=== PATIENT | male | born 1950 ===

== ENCOUNTER 2017-08-08 21:36 | Inpatient (IN) | payer MEDICARE, OTHER ==
--- NOTE | 2017-08-08 22:17 | ED PDOC ---
HPI: Chest Pain Time Seen by Provider: 08/08/17 21:59 Chief Complaint (Nursing): Chest Pain History Per: Patient Onset/Duration Of Symptoms: Days (2) Current Symptoms Are (Timing): Intermittent Episodes Severity: Moderate Pain Scale Rating Of: 3 Quality: Pressure Associated Symptoms: denies: Nausea, Dyspnea Additional Complaint(s): Substernal chest pressure, feels like someone is sitting on his chest. Not assoc with SOB. Nonradiating. 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 Has been tx'ed x 2weeks. No fever or cough Past Medical History Vital Signs: Last Vital Signs Temp 98.9 F 08/08/17 21:52 Pulse 79 08/08/17 21:52 Resp 18 08/08/17 21:52 BP 115/66 08/08/17 21:52 Pulse Ox 98 08/08/17 22:18 - Medical History PMH: CAD, Diabetes, HTN - Family History Family History: States: Unknown Family Hx - Allergies Allergies/Adverse Reactions: Allergies Allergy/AdvReac Type Severity Reaction Status Date / Time No Known Allergies Allergy Verified 08/08/17 21:52 Review of Systems ROS Statement: Except As Marked, All Systems Reviewed And Found Negative Cardiovascular: Positive for: Chest Pain Physical Exam - Reviewed Nursing Documentation Reviewed: Yes Vital Signs Reviewed: Yes - Physical Exam Appears: Positive for: Non-toxic, No Acute Distress Head Exam: Positive for: ATRAUMATIC, NORMAL INSPECTION, NORMOCEPHALIC Skin: Positive for: Normal Color, Warm, DRY Eye Exam: Positive for: EOMI, Normal appearance, PERRL ENT: Positive for: Normal ENT Inspection Neck: Positive for: Normal, Painless ROM Cardiovascular/Chest: Positive for: Regular Rate, Rhythm Respiratory: Positive for: CNT, Normal Breath Sounds Gastrointestinal/Abdominal: Positive for: Normal Exam, Bowel Sounds, Soft Back: Positive for: Normal Inspection Extremity: Positive for: Normal ROM Neurologic/Psych: Positive for: Alert, Oriented - Laboratory Results Result Diagrams: 08/08/17 22:40 08/08/17 22:40 - ECG O2 Sat by Pulse Oximetry: 98 Disposition - Clinical Impression Clinical Impression: Chest pain - Patient ED Disposition Is Patient to be Admitted: Yes - Disposition Disposition Time: 23:26 Condition: FAIR Forms: [employer] (Polish) - Pt Status Changed To: Hospital Disposition Of: Observation - POA Present On Arrival: None
[2017-08-08 22:56] LABS: BASO # 0.1 K/uL (0.0-0.2); BASO % 1.1 % (0.0-2.0); EOS # 0.1 K/uL (0.0-0.7); EOS % 0.9 % (0.0-4.0); HEMOGLOBIN 9.6 g/dL (12.0-18.0); LYMPH # 1.1 K/uL (1.0-4.3); LYMPH % 12.3 % (20.0-40.0); MEAN CELL VOLUME 79.9 fl (80.0-94.0); MEAN CORPUSCULAR HGB CONC 31.3 g/dL (33.0-37.0); MEAN PLATELET VOLUME 7.8 fl (7.2-11.7); MONO # 0.5 K/uL (0.0-0.8); NEUT # 6.8 K/uL (1.8-7.0); NEUT % 79.7 % (50.0-75.0); RBC 3.82 Mil/uL (4.40-5.90); RED CELL DISTRIBUTION WIDTH 17.8 % (11.5-14.5); WHITE BLOOD COUNT 8.5 K/uL (4.8-10.8)
[2017-08-08 23:07] LABS: ALBUMIN 3.7 g/dL (3.5-5.0); ALT/SGPT 50 U/L (21-72); AST/SGOT 34 U/L (17-59); BLOOD UREA NITROGEN 19 mg/dl (9-20); CALCIUM 9.6 mg/dL (8.4-10.2); GFR AFRICAN-AMERICAN > 60; GFR NON-AFRICAN AMERICAN > 60
[2017-08-09] MEDS ORDERED: Pantoprazole 40 mg EC Tab PO SCH ×2 (02:15→09:00)
[2017-08-09] MEDS ORDERED: Pneumococcal 23-Valent Vaccine IM ONE (06:00)
[2017-08-09] MEDS ORDERED: INSULIN ASPART 10 UNIT SQ SCH (09:00)
[2017-08-09] MEDS ORDERED: Cholecalciferol 1,000 INTLU TAB PO SCH (09:00)
[2017-08-09] MEDS ORDERED: Patient's Own Med (Atorvastatin Calcium [Lipitor] 80 mg) PO SCH (09:00)
[2017-08-09] MEDS ORDERED: Enoxaparin 120 mg Syringe SC SCH (09:00)
[2017-08-09] MEDS ORDERED: POLYETHYLENE GLYCOL PO SCH (09:00)
--- NOTE | 2017-08-09 09:04 | RAD ---
HISTORY: chest pain COMPARISON: No prior. TECHNIQUE: Chest PA and lateral FINDINGS: LUNGS: No active pulmonary disease. PLEURA: No significant pleural effusion identified. No pneumothorax apparent. CARDIOVASCULAR: Normal. OSSEOUS STRUCTURES: Degenerative changes. VISUALIZED UPPER ABDOMEN: Normal. OTHER FINDINGS: Left upper extremity PICC with catheter tip in the SVC. IMPRESSION: No active disease.
[2017-08-09] MEDS: Insulin Detemir 100 Units/ml Inj SC SCH (10:19)
[2017-08-09] MEDS: POLYETHYLENE GLYCOL 3350 17 GM/Dose PACKET PO SCH (11:00)
[2017-08-09] MEDS: Pantoprazole 40 mg EC Tab PO SCH (11:01)
[2017-08-09] MEDS: Cholecalciferol 1,000 INTLU TAB PO SCH (11:01)
[2017-08-09] MEDS: Ciprofloxacin 0.3% OPTH SOLN OU SCH ×2 (11:01→15:51)
--- NOTE | 2017-08-09 11:15 | CARD ---
APPROVED REPORT EKG Measurement Heart [id number] <Conclusion> Normal sinus rhythm Normal ECG
[2017-08-09] MEDS: Insulin Lispro (humaLOG) 100 Units/ml Inj SC SCH (15:41)
[2017-08-09] MEDS: Nasal Spray(Ocean spray) NAS PRN (15:43)
[2017-08-09] MEDS: Ciprofloxacin/Dexamethasone OTIC SUSP AD SCH ×2 (18:12→18:16)
[2017-08-09] MEDS: Enoxaparin 80 mg Syringe SC SCH (20:34)
[2017-08-09] MEDS: Cefepime 1 GM in Sodium Chloride 0.9% 100 ML IVPB SCH (21:12)
--- NOTE | 2017-08-09 23:41 | CON ---
CARDIOLOGY CONSULTATION DATE: HISTORY OF PRESENT ILLNESS: History was obtained from the patient as well as the patient's brother on the phone. The patient is a 66-year-old male who arrived from [facility] few weeks ago. He stated that he had chest pain and cardiac catheterization was told, he needs an open surgery. The patient was evaluated at [facility] in [facility] for heart surgery; however, because of an ear and possibly right mastoid infection, the surgery was postponed. The patient had PICC line and was started on intravenous antibiotic therapy. Unexpectedly according to the patient's brother the patient was discharged Thursday from the [facility] and he presented to [facility] because of chest pain. SOCIAL HISTORY: Nonsmoker. MEDICATIONS: Aspirin 81 mg once a day, Imdur 60 mg once a day, Levemir 60 mg once a day, Lipitor 80 mg once a day, Lovenox 120 mg subcutaneously twice a day, Neurontin 600 mg twice a day, Protonix 40 mg once a day and atenolol 25 mg once a day. REVIEW OF SYSTEMS: The patient has severe right ear ache and right facial drooping and difficulty articulating his speech. PHYSICAL EXAMINATION GENERAL: The patient is an elderly male who does not appear to be in acute distress. VITAL SIGNS: Blood pressure , heart rate is 77, temperature 98.5 and respirations 18. HEENT: Right facial drooping and inability to close right eye completely. NECK: No JVD. CHEST: Clear. HEART: S1 and S2 regular. EXTREMITIES: 1+ left leg edema. LABORATORY DATA: Hemoglobin and hematocrit 9.6 and 30.6, white count and platelet count are within normal limits. SMA-7 today is within normal limits except for glucose 181. Two sets of troponins are negative. EKG revealed normal sinus rhythm. Chest x-ray is unremarkable except for prominent vasculature and presence of the left arm PICC line. ASSESSMENT: 1. Chest pain, myocardial infarction is ruled out. 2. Reported coronary artery disease requiring coronary artery bypass surgery as the recommendation, but has not been performed yet. 3. Rule out mastoid infection extending into the sigmoid or sagittal sinuses. 4. Hypertension, diabetes mellitus. RECOMMENDATIONS: Continue current aspirin 81 mg once a day, Lipitor at 80 mg once a day, subcutaneous Lovenox at 120 mg twice a day, obtain head CT scan without contrast. Consider resuming the IV antibiotic therapy. The patient was discharged upon for his mastoiditis. I discussed the case with the patient's brother regarding open heart surgery. Arrangements has to be made to transfer the patient back to the [facility], but not until the mastoid infection is controlled. In the meantime, I will discuss the case with the primary physician. It is preferred that the patient has entire medical managements for his medical problems with the original [facility] in [facility] to avoid unnecessary repetitions of workup and evaluations. Benjamin Patton MD
[2017-08-10] MEDS: Ciprofloxacin/Dexamethasone OTIC SUSP AD SCH ×2 (11:28→18:18)
[2017-08-10] MEDS: Enoxaparin 80 mg Syringe SC SCH ×2 (11:30→21:28)
[2017-08-10] MEDS: Cholecalciferol 1,000 INTLU TAB PO SCH (11:31)
[2017-08-10] MEDS: Pantoprazole 40 mg EC Tab PO SCH (11:32)
[2017-08-10] MEDS: Insulin Lispro (humaLOG) 100 Units/ml Inj SC SCH (11:33)
[2017-08-10] MEDS: Insulin Detemir 100 Units/ml Inj SC SCH (11:34)
[2017-08-10] MEDS: Cefepime 1 GM in Sodium Chloride 0.9% 100 ML IVPB SCH (11:35)
[2017-08-10] MEDS: POLYETHYLENE GLYCOL 3350 17 GM/Dose PACKET PO SCH (11:35)
--- NOTE | 2017-08-10 14:24 | PN ---
DATE: This is a correction to some of them to yesterday's note. SUBJECTIVE: The patient was never been to the hospital in [facility]. The cardiac cath was performed in [facility], and the patient was told that he has to go to [facility] for the coronary artery bypass surgery and the IV antibiotics and the PICC lines for mastoiditis were initiated in [facility]. The patient denies any chest pain. PHYSICAL EXAMINATION: VITAL SIGNS: Blood pressure 110/64, heart rate 70, temperature 98.4, respirations 18. HEENT: Right facial drooping. NECK: No JVD. CHEST: Clear. HEART: S1 and S2 regular. EXTREMITIES: Trace leg edema. ASSESSMENT: 1. Chest pain, myocardial infarction is ruled out. 2. History of coronary artery disease requiring coronary artery bypass surgery. 3. Rule out mastoiditis and possible intracranial infection or sinus thrombosis. 4. Uncontrolled diabetes mellitus. RECOMMENDATIONS: Case was discussed at length with the primary physician, Dr. Reveles and with RATE REVIEWER. The patient was started on cefepime today. I requested that his records including his intravenous antibiotics at the time of discharge to be obtained from [facility]. Head CT scan with and without contrast was ordered yesterday, but has not been performed yet. Echocardiography study is still pending. The patient is not a suitable candidate for any invasive cardiac workup or coronary artery bypass surgery at this time because of his ongoing mastoiditis. Benjamin Patton MD
[2017-08-11] MEDS: Enoxaparin 80 mg Syringe SC SCH ×2 (09:19→20:22)
[2017-08-11] MEDS: Ciprofloxacin/Dexamethasone OTIC SUSP AD SCH ×2 (09:19→17:19)
[2017-08-11] MEDS: Cholecalciferol 1,000 INTLU TAB PO SCH (09:20)
[2017-08-11] MEDS: Insulin Lispro (humaLOG) 100 Units/ml Inj SC SCH (09:21)
[2017-08-11] MEDS: Pantoprazole 40 mg EC Tab PO SCH (09:21)
[2017-08-11] MEDS: Insulin Detemir 100 Units/ml Inj SC SCH (09:22)
[2017-08-11] MEDS: Cefepime 1 GM in Sodium Chloride 0.9% 100 ML IVPB SCH (09:23)
[2017-08-11] MEDS: POLYETHYLENE GLYCOL 3350 17 GM/Dose PACKET PO SCH (09:23)
--- NOTE | 2017-08-11 11:34 | CP.PCM.HP ---
History of Present Illness - History of Present Illness History of Present Illness: This is a 66 y/o male admitted form last night for chest pain He has a dx of CAD and scheduled for further cardiac testing but the sudden onset of chest pain brought him to ER last night. Has a hx of HTN and DM 2. He is currently on treatment for osteomyelitis of the mastoid bone. Present on Admission - Present on Admission Any Indicators Present on Admission: No History of DVT/PE: No History of Uncontrolled Diabetes: Yes Urinary Catheter: No Decubitus Ulcer Present: No Review of Systems - EENT Nose/Mouth/Throat: Sinus Pain Past Patient History - Past Medical History & Family History Past Medical History?: Yes - Past Social History Smoking Status: Former Smoker - CARDIAC Hx Hypertension: Yes - ENDOCRINE/METABOLIC Hx Diabetes Mellitus Type 2: Yes - MUSCULOSKELETAL/RHEUMATOLOGICAL Hx Falls: Yes Hx Osteomyelitis: Yes (skull base) - PSYCHIATRIC Hx Substance Use: No Meds Allergies/Adverse Reactions: Allergies Allergy/AdvReac Type Severity Reaction Status Date / Time No Known Allergies Allergy Verified 08/08/17 21:52 Physical Exam - Head Exam Head Exam: NORMAL INSPECTION - Eye Exam Eye Exam: Normal appearance - ENT Exam ENT Exam: Mucous Membranes Moist - Respiratory Exam Respiratory Exam: Clear to Auscultation Bilateral - Cardiovascular Exam Cardiovascular Exam: REGULAR RHYTHM - Extremities Exam Extremities exam: Positive for: normal inspection - Neurological Exam Neurological exam: CN II-XII Intact, Oriented x3 - Psychiatric Exam Psychiatric exam: Normal Mood Results - Vital Signs Recent Vital Signs: Last Vital Signs Temp 98.5 F 08/11/17 08:00 Pulse 73 08/11/17 09:21 Resp 18 08/11/17 08:00 BP 118/61 08/11/17 09:21 Pulse Ox 100 08/11/17 08:00 - Labs Result Diagrams: 08/12/17 18:06 08/12/17 18:06 Labs: Laboratory Results - last 24 hr 08/10/17 08/10/17 08/11/17 17:01 21:44 05:33 POC Glucose (mg/dL) 89 257 H 141 H Assessment & Plan (1) Chest pain Status: Acute (2) Mastoiditis Status: Acute (3) Diabetes mellitus Status: Chronic (4) Hypertension Status: Acute - Assessment and Plan (Free Text) Plan: Cont iv antibiotics Cardiology eval CT scan of the head cardiac work up
--- NOTE | 2017-08-11 11:35 | CP.PCM.PN ---
Subjective - Date & Time of Evaluation Date of Evaluation: 08/10/17 Time of Evaluation: 10:00 - Subjective Subjective: Patient denies any chest pain or SOB All troponins x 3 are all negative. Has no fever. Patient claims that he was diagnosed to have DVT hence on Lovenox. Objective - Vital Signs/Intake and Output Vital Signs (last 24 hours): Temp Pulse Resp BP Pulse Ox 98.5 F 73 18 118/61 100 08/11/17 08:00 08/11/17 09:21 08/11/17 08:00 08/11/17 09:21 08/11/17 08:00 - Medications Medications: Current Medications Acetaminophen (Tylenol 325mg Tab) 650 mg PO QID PRN PRN Reason: Pain, moderate (4-7) Aspirin (Aspirin Chewable) 81 mg PO DAILY [facility] Last Admin: 08/11/17 09:20 Dose: 81 mg Atenolol (Tenormin) 25 mg PO DAILY [facility] Last Admin: 08/11/17 09:21 Dose: 25 mg Atorvastatin Calcium (Lipitor) 80 mg PO DAILY [facility] Last Admin: 08/11/17 09:21 Dose: 80 mg Cholecalciferol (Vitamin D) 2,000 intlu PO DAILY [facility] Last Admin: 08/11/17 09:20 Dose: 2,000 intlu Ciprofloxacin/Dexamethasone (Ciprodex Otic) 4 drop AD BID [facility] Last Admin: 08/11/17 09:19 Dose: 4 drop Docusate Sodium (Colace) 100 mg PO BID [facility] Last Admin: 08/11/17 09:20 Dose: 100 mg Enoxaparin Sodium (Lovenox) 70 mg SC Q12 [facility] PRN Reason: Protocol Last Admin: 08/11/17 09:19 Dose: 70 mg Gabapentin (Neurontin) 600 mg PO BID [facility] Last Admin: 08/11/17 09:20 Dose: 600 mg Cefepime HCl 1 gm/ Sodium (Chloride) 100 mls @ 100 mls/hr IVPB DAILY [facility] PRN Reason: Protocol Last Admin: 08/11/17 09:23 Dose: 100 mls/hr Insulin Detemir (Levemir) 50 units SC DAILY [facility] Last Admin: 08/11/17 09:22 Dose: 50 unit Insulin Human Lispro (Humalog) 10 units SC DAILY [facility] Last Admin: 08/11/17 09:21 Dose: 10 units Isosorbide Mononitrate (Imdur) 60 mg PO DAILY [facility] Last Admin: 08/11/17 09:21 Dose: 60 mg Metformin HCl (Glucophage) 850 mg PO BIDWM [facility] Pantoprazole Sodium (Protonix Ec Tab) 40 mg PO DAILY [facility] Last Admin: 08/11/17 09:21 Dose: 40 mg Polyethylene Glycol (Miralax) 17 gm PO DAILY [facility] Last Admin: 08/11/17 09:23 Dose: Not Given Sitagliptin Phosphate (Januvia) 100 mg PO DAILY [facility] Sodium Chloride ([place] Nasal [place]) 1 sprays SARAH TID PRN PRN Reason: Dry nasal passages Last Admin: 08/09/17 15:43 Dose: 1 spray Tramadol HCl (Ultram) 50 mg PO Q8 PRN PRN Reason: Pain, moderate (4-7) - Labs Labs: 08/08/17 22:40 08/08/17 22:40 - Head Exam Head Exam: NORMAL INSPECTION - Eye Exam Eye Exam: Normal appearance - ENT Exam ENT Exam: Mucous Membranes Moist - Respiratory Exam Respiratory Exam: Clear to Ausculation Bilateral - Cardiovascular Exam Cardiovascular Exam: REGULAR RHYTHM - GI/Abdominal Exam GI & Abdominal Exam: Normal Bowel Sounds - Neurological Exam Neurological Exam: CN II-XII Intact, Oriented x3 - Psychiatric Exam Psychiatric exam: Anxious Assessment and Plan (1) Chest pain Status: Acute (2) Hypertension Status: Acute (3) Mastoiditis Status: Acute (4) Diabetes mellitus Status: Chronic - Assessment and Plan (Free Text) Plan: Cont meds Cont IV antibiotics follow up with cardiology
--- NOTE | 2017-08-11 11:50 | CP.PCM.PN ---
<Elvira Vasquez - Last Filed: 08/11/17 12:21> Subjective - Date & Time of Evaluation Date of Evaluation: 08/11/17 Time of Evaluation: 11:47 - Subjective Subjective: Patient is seen and examined at bedside, denies any chest pain today. Is scheduled for a head CT today. Troponin x 3 have been negative. Denies SOB/N/V/D Objective - Vital Signs/Intake and Output Vital Signs (last 24 hours): Temp Pulse Resp BP Pulse Ox 98.5 F 73 18 118/61 100 08/11/17 08:00 08/11/17 09:21 08/11/17 08:00 08/11/17 09:21 08/11/17 08:00 - Medications Medications: Current Medications Acetaminophen (Tylenol 325mg Tab) 650 mg PO QID PRN PRN Reason: Pain, moderate (4-7) Aspirin (Aspirin Chewable) 81 mg PO DAILY [facility] Last Admin: 08/11/17 09:20 Dose: 81 mg Atenolol (Tenormin) 25 mg PO DAILY [facility] Last Admin: 08/11/17 09:21 Dose: 25 mg Atorvastatin Calcium (Lipitor) 80 mg PO DAILY [facility] Last Admin: 08/11/17 09:21 Dose: 80 mg Cholecalciferol (Vitamin D) 2,000 intlu PO DAILY [facility] Last Admin: 08/11/17 09:20 Dose: 2,000 intlu Ciprofloxacin/Dexamethasone (Ciprodex Otic) 4 drop AD BID [facility] Last Admin: 08/11/17 09:19 Dose: 4 drop Docusate Sodium (Colace) 100 mg PO BID [facility] Last Admin: 08/11/17 09:20 Dose: 100 mg Enoxaparin Sodium (Lovenox) 70 mg SC Q12 [facility] PRN Reason: Protocol Last Admin: 08/11/17 09:19 Dose: 70 mg Gabapentin (Neurontin) 600 mg PO BID [facility] Last Admin: 08/11/17 09:20 Dose: 600 mg Cefepime HCl 1 gm/ Sodium (Chloride) 100 mls @ 100 mls/hr IVPB DAILY [facility] PRN Reason: Protocol Last Admin: 08/11/17 09:23 Dose: 100 mls/hr Insulin Detemir (Levemir) 50 units SC DAILY [facility] Last Admin: 08/11/17 09:22 Dose: 50 unit Insulin Human Lispro (Humalog) 10 units SC DAILY [facility] Last Admin: 08/11/17 09:21 Dose: 10 units Isosorbide Mononitrate (Imdur) 60 mg PO DAILY [facility] Last Admin: 08/11/17 09:21 Dose: 60 mg Metformin HCl (Glucophage) 850 mg PO BIDWM [facility] Pantoprazole Sodium (Protonix Ec Tab) 40 mg PO DAILY [facility] Last Admin: 08/11/17 09:21 Dose: 40 mg Polyethylene Glycol (Miralax) 17 gm PO DAILY [facility] Last Admin: 08/11/17 09:23 Dose: Not Given Sitagliptin Phosphate (Januvia) 100 mg PO DAILY [facility] Sodium Chloride ([place] Nasal [place]) 1 sprays SARAH TID PRN PRN Reason: Dry nasal passages Last Admin: 08/09/17 15:43 Dose: 1 spray Tramadol HCl (Ultram) 50 mg PO Q8 PRN PRN Reason: Pain, moderate (4-7) - Labs Labs: 08/08/17 22:40 08/08/17 22:40 - Constitutional Appears: Non-toxic, No Acute Distress - Head Exam Head Exam: NORMAL INSPECTION Additional comments: right facial droop - Eye Exam Eye Exam: Normal appearance - Respiratory Exam Respiratory Exam: Clear to Ausculation Bilateral. absent: Rhonchi, Wheezes - Cardiovascular Exam Cardiovascular Exam: REGULAR RHYTHM, +S1, +S2 - GI/Abdominal Exam GI & Abdominal Exam: Soft, Tenderness, Normal Bowel Sounds - Extremities Exam Extremities Exam: Normal Inspection - Neurological Exam Neurological Exam: Alert, Awake Assessment and Plan (1) Mastoiditis Status: Acute (2) Chest pain Assessment & Plan: Toponin x 3 negative. Cardio consult appreciated F/U with Echo Pt not currently a candidate for invasive intervention. F/U with cardio outpatient. Once Status: Acute (3) Diabetes mellitus Assessment & Plan: Diabetes Mellitus type II - C/W home insulin regimine. Will add metformin and Junuvia today Status: Chronic (4) DVT prophylaxis Status: Acute <Ellis Abreu - Last Filed: 08/12/17 23:21> Objective - Vital Signs/Intake and Output Vital Signs (last 24 hours): Temp Pulse Resp BP Pulse Ox 99.6 F 86 17 110/60 99 08/12/17 19:57 08/12/17 19:57 08/12/17 19:57 08/12/17 19:57 08/12/17 19:57 - Medications Medications: Current Medications Acetaminophen (Tylenol 325mg Tab) 650 mg PO QID PRN PRN Reason: Pain, moderate (4-7) Acetaminophen (Tylenol 325mg Tab) 650 mg PO Q4 PRN PRN Reason: Fever >100.4 F Last Admin: 08/12/17 12:12 Dose: 650 mg Al Hydrox/Mg Hydrox/Simethicone (Maalox Plus 30 Ml) 30 ml PO Q4 PRN PRN Reason: Indigestion / Heartburn Last Admin: 08/12/17 17:06 Dose: 30 ml Albuterol (Ventolin Hfa 90 Mcg/Actuation (8 G)) 1 puff INH RQ4 PRN PRN Reason: Shortness of Breath Aspirin (Aspirin Chewable) 81 mg PO DAILY [facility] Last Admin: 08/12/17 09:39 Dose: 81 mg Atenolol (Tenormin) 25 mg PO DAILY [facility] Last Admin: 08/12/17 09:38 Dose: 25 mg Atorvastatin Calcium (Lipitor) 80 mg PO DAILY [facility] Last Admin: 08/12/17 09:35 Dose: 80 mg Benzocaine/Menthol (Cepacol Sore Throat) 1 nick PO Q2 PRN PRN Reason: Sore Throat Last Admin: 08/12/17 03:20 Dose: 1 nick Cholecalciferol (Vitamin D) 2,000 intlu PO DAILY [facility] Last Admin: 08/12/17 09:38 Dose: 2,000 intlu Ciprofloxacin/Dexamethasone (Ciprodex Otic) 4 drop AD BID [facility] Last Admin: 08/12/17 17:09 Dose: 4 drop Docusate Sodium (Colace) 100 mg PO BID [facility] Last Admin: 08/12/17 17:09 Dose: 100 mg Enoxaparin Sodium (Lovenox) 70 mg SC Q12 [facility] PRN Reason: Protocol Last Admin: 08/12/17 21:37 Dose: 70 mg Gabapentin (Neurontin) 600 mg PO BID [facility] Last Admin: 08/12/17 17:07 Dose: 600 mg Cefepime HCl 2 gm/ Sodium (Chloride) 100 mls @ 100 mls/hr IVPB Q8 [facility] PRN Reason: Protocol Last Admin: 08/12/17 17:07 Dose: 100 mls/hr Sodium Chloride (Sodium Chloride 0.9%) 1,000 mls @ 999 mls/hr IV .Q1H1M [facility] Stop: 08/13/17 17:45 Last Admin: 08/12/17 17:59 Dose: 999 mls/hr Insulin Detemir (Levemir) 50 units SC DAILY [facility] Last Admin: 08/12/17 09:37 Dose: 50 unit Insulin Human Lispro (Humalog) 10 units SC DAILY [facility] Last Admin: 08/12/17 11:59 Dose: 10 units Isosorbide Mononitrate (Imdur) 60 mg PO DAILY [facility] Last Admin: 08/12/17 09:38 Dose: 60 mg Metformin HCl (Glucophage) 850 mg PO BIDWM [facility] Last Admin: 08/12/17 17:09 Dose: Not Given Pantoprazole Sodium (Protonix Ec Tab) 40 mg PO DAILY [facility] Last Admin: 08/12/17 09:37 Dose: 40 mg Polyethylene Glycol (Miralax) 17 gm PO DAILY [facility] Last Admin: 08/12/17 09:37 Dose: Not Given Sitagliptin Phosphate (Januvia) 100 mg PO DAILY [facility] Last Admin: 08/12/17 09:40 Dose: 100 mg Sodium Chloride ([place] Nasal [place]) 1 sprays SARAH TID PRN PRN Reason: Dry nasal passages Last Admin: 08/09/17 15:43 Dose: 1 spray Tramadol HCl (Ultram) 50 mg PO Q8 PRN PRN Reason: Pain, moderate (4-7) Last Admin: 08/11/17 19:35 Dose: 50 mg - Labs Labs: 08/12/17 18:06 08/12/17 18:06 Assessment and Plan (1) Chest pain Status: Acute (2) Hypertension Status: Acute (3) Mastoiditis Status: Acute (4) Diabetes mellitus Status: Chronic - Assessment and Plan (Free Text) Plan: I was present during evaluation and discussed with Dr Vasquez re plans of care and mgt. Ellis Abreu M.D.
[2017-08-11 12:06] LABS: BLOOD UREA NITROGEN 12 mg/dl (9-20); CALCIUM 9.2 mg/dL (8.4-10.2); GFR AFRICAN-AMERICAN > 60; GFR NON-AFRICAN AMERICAN > 60
[2017-08-11 12:14] LABS: HEMOGLOBIN 9.4 g/dL (12.0-18.0); MEAN CELL VOLUME 79.7 fl (80.0-94.0); MEAN CORPUSCULAR HEMOGLOBIN 25.3 pg (27.0-31.0); MEAN CORPUSCULAR HGB CONC 31.7 g/dL (33.0-37.0); RBC 3.7 Mil/uL (4.40-5.90); RED CELL DISTRIBUTION WIDTH 18.5 % (11.5-14.5); WHITE BLOOD COUNT 7.9 K/uL (4.8-10.8)
[2017-08-11] MEDS ORDERED: Iohexol 300 50 ML ONE ×3 (12:37)
[2017-08-11] MEDS ORDERED: Sodium Chloride 0.9% 50 ML IV ONE (12:40)
[2017-08-11] MEDS ORDERED: Iohexol 300 100 ML IJ ONE (12:40)
--- NOTE | 2017-08-11 14:10 | PQF GENQUE ---
This form is a permanent part of the medical record 08/11/17 Dr. Abreu / Pooja, Please clarify the etiology of the chest pain in a patient with documented CAD. Admitted with chest pain. Reported to have CAD. EKG: NSR. Troponin x 3 negative. ECHO pending results. Treated with Aspirin, Tenormin, Lovenox. Clarification of your documentation is requested to better reflect the severity of illness and intensity of treatment of your patient. Indicators present [] Specify: [] [] Specify: [] [] Specify: [] [] Specify: [] Location in the medical record that reflects the above clinical findings: [] Treatment Provided: [] PHYSICIAN'S RESPONSE Based on your medical judgment of the clinical indicators outlined above please clarify the following: [] Practitioner response [] If unable to determine, please check the box, sign and date. Present On Admission (POA) Indicator: [] Present at the time of admission [] Not present at the time of admission [] Clinically Undetermined In responding to this query, please exercise your independent professional judgment. The fact that a question is asked does not imply that any particular answer is desired or expected. Thank you for your clarification on this documentation. If you have any questions please call:ext [phone] * Thank you, Vandana Gómez RN CDMP [facility]
--- NOTE | 2017-08-11 14:19 | CT ---
PROCEDURE: CT HEAD WITH AND WITHOUT CONTRAST HISTORY: ?Mastoiditis,Sigmoid or Sagittal sinus thrombosis COMPARISON: None available. TECHNIQUE: Axial computed tomography images were obtained through the head/brain with and without intravenous contrast enhancement. Coronal and sagittal reconstructed postcontrast CT images were also obtained. Contrast dose: 95 cc of Omnipaque 300. Radiation dose: Total exam DLP = 1956.05 mGy-cm. This CT exam was performed using one or more of the following dose reduction techniques: Automated exposure control, adjustment of the mA and/or kV according to patient size, and/or use of iterative reconstruction technique. FINDINGS: HEMORRHAGE: No intracranial hemorrhage. BRAIN: No mass, mass effect or edema. No abnormal intracranial enhancement. No atrophy or chronic microvascular ischemic changes. VENTRICLES: Unremarkable. No hydrocephalus. CALVARIUM: Unremarkable. SINUSES: Mild mucosal thickening noted in the paranasal sinuses without evidence of air-fluid level. MASTOID AIR CELLS: There is complete opacification of the right mastoid and right middle ear suggestive of otomastoiditis. The left mastoid is grossly unremarkable. OTHER FINDINGS: The postcontrast images demonstrate normal opacification of the dural sinuses. There is no CT evidence of dural sinuses thrombosis. There is no evidence of enhancing mass lesion or fluid collection in the intracranial fossa. IMPRESSION: Complete opacification of the right mastoid and right middle ear suggestive of otomastoiditis. No CT evidence of dural sinuses thrombosis. No evidence of acute pathology in the brain.
--- NOTE | 2017-08-11 14:38 | CARD ---
APPROVED REPORT EXAM: Two-dimensional and M-mode echocardiogram with Doppler and color Doppler. Other Information Quality : GoodRhythm : NSR INDICATION Cardiac Disease: CAD 2D DIMENSIONS IVSd1.11 (0.7-1.1cm)LVDd3.63 (3.9-5.9cm) LVOT Diameter2.58 (1.8-2.4cm)PWd1.09 (0.7-1.1cm) IVSs1.42 (0.8-1.2cm)LVDs2.78 (2.5-4.0cm) FS (%) 23.5 %PWs1.54 (0.8-1.2cm) M-Mode DIMENSIONS Left Atrium (MM)3.26 (2.5-4.0cm)IVSd0.94 (0.7-1.1cm) Aortic Root3.44 (2.2-3.7cm)LVDd5.09 (4.0-5.6cm) Aortic Cusp Exc.2.03 (1.5-2.0cm)PWd0.97 (0.7-1.1cm) IVSs1.50 cmFS (%) 38 % LVDs3.18 (2.0-3.8cm)PWs1.76 cm Mitral Valve MV E Amzkkeyw15.3cm/sMV DECEL [id number] A Ikwhkqrv85.6cm/s MV PPZ63tpU/A ratio0.6MVA (PHT)2.36cm2 TDI Lateral E' Peak V7.01cm/sMedial E' Peak V4.32cm/sE/Lateral E'6.9 E/Medial E'11.2 Pulmonary Valve PV Peak Wellkgsa33.1cm/s LEFT VENTRICLE The left ventricle is normal size. There is normal left ventricular wall thickness. The left ventricular function is normal. The left ventricular ejection fraction is within the normal range. The Ejection Fraction is 60-65%. There is normal LV segmental wall motion. The left ventricular diastolic function is normal. RIGHT VENTRICLE The right ventricle is normal size. The right ventricular systolic function is normal. ATRIA The left atrium size is normal. The right atrium size is normal. AORTIC VALVE The aortic valve is normal in structure. No aortic regurgitation is present. There is no aortic valvular stenosis. MITRAL VALVE The mitral valve is normal in structure. There is no mitral valve stenosis. There is no mitral valve regurgitation noted. TRICUSPID VALVE The tricuspid valve is normal in structure. There is no tricuspid valve regurgitation noted. There is no tricuspid valve stenosis. PULMONIC VALVE The pulmonary valve is normal in structure. There is no pulmonic valvular regurgitation. GREAT VESSELS The aortic root is normal in size. The IVC is normal in size and collapses >50% with inspiration. PERICARDIAL EFFUSION The pericardium appears normal. <Conclusion> The left ventricle is normal size. The left ventricular function is normal. The left ventricular ejection fraction is within the normal range. The Ejection Fraction is 60-65%.
[2017-08-11] MEDS: Alum-Mag Hydrox-Simethicone Susp (30 mL) PO PRN (20:22)
[2017-08-11] MEDS: Benzocaine/Menthol (Cepacol) Lozenge PO PRN (20:28)
[2017-08-12] MEDS: Alum-Mag Hydrox-Simethicone Susp (30 mL) PO PRN ×3 (03:17→17:06)
[2017-08-12] MEDS: Benzocaine/Menthol (Cepacol) Lozenge PO PRN (03:20)
[2017-08-12] MEDS: Cefepime 1 GM in Sodium Chloride 0.9% 100 ML IVPB SCH (09:34)
[2017-08-12] MEDS: Enoxaparin 80 mg Syringe SC SCH ×2 (09:35→21:37)
[2017-08-12] MEDS: POLYETHYLENE GLYCOL 3350 17 GM/Dose PACKET PO SCH (09:37)
[2017-08-12] MEDS: Insulin Detemir 100 Units/ml Inj SC SCH (09:37)
[2017-08-12] MEDS: Pantoprazole 40 mg EC Tab PO SCH (09:37)
[2017-08-12] MEDS: Cholecalciferol 1,000 INTLU TAB PO SCH (09:38)
[2017-08-12] MEDS: Ciprofloxacin/Dexamethasone OTIC SUSP AD SCH ×2 (09:39→17:09)
[2017-08-12] MEDS: Insulin Lispro (humaLOG) 100 Units/ml Inj SC SCH ×2 (09:39→11:59)
[2017-08-12] MEDS ORDERED: Albuterol-Ipratrop 3 mg / 0.5 (3 ml) UD INH STA (13:03)
[2017-08-12] MEDS ORDERED: Albuterol HFA 90 mcg/actuation (8 g) INH PRN (13:26)
--- NOTE | 2017-08-12 13:32 | CP.PCM.PN ---
<Elvira Vasquez - Last Filed: 08/12/17 19:15> Subjective - Date & Time of Evaluation Date of Evaluation: 08/12/17 Time of Evaluation: 13:21 - Subjective Subjective: 66 YO M was seen at bedside today, appears to be doing well. Has been having some SOB and wheezing, for which he is requesting an inhaler which he uses at home. CT results were discussed with he patient: CT confirmed ostomastoidiits of the patient. - Patient spiked a fever today. Blood cultures were taken . Objective - Vital Signs/Intake and Output Vital Signs (last 24 hours): Temp Pulse Resp BP Pulse Ox 100.4 F H 95 H 20 112/63 95 08/12/17 13:12 08/12/17 12:43 08/12/17 12:43 08/12/17 12:43 08/12/17 12:43 - Medications Medications: Current Medications Acetaminophen (Tylenol 325mg Tab) 650 mg PO QID PRN PRN Reason: Pain, moderate (4-7) Acetaminophen (Tylenol 325mg Tab) 650 mg PO Q4 PRN PRN Reason: Fever >100.4 F Last Admin: 08/12/17 12:12 Dose: 650 mg Al Hydrox/Mg Hydrox/Simethicone (Maalox Plus 30 Ml) 30 ml PO Q4 PRN PRN Reason: Indigestion / Heartburn Last Admin: 08/12/17 09:49 Dose: 30 ml Aspirin (Aspirin Chewable) 81 mg PO DAILY [facility] Last Admin: 08/12/17 09:39 Dose: 81 mg Atenolol (Tenormin) 25 mg PO DAILY [facility] Last Admin: 08/12/17 09:38 Dose: 25 mg Atorvastatin Calcium (Lipitor) 80 mg PO DAILY [facility] Last Admin: 08/12/17 09:35 Dose: 80 mg Benzocaine/Menthol (Cepacol Sore Throat) 1 nick PO Q2 PRN PRN Reason: Sore Throat Last Admin: 08/12/17 03:20 Dose: 1 nick Cholecalciferol (Vitamin D) 2,000 intlu PO DAILY [facility] Last Admin: 08/12/17 09:38 Dose: 2,000 intlu Ciprofloxacin/Dexamethasone (Ciprodex Otic) 4 drop AD BID [facility] Last Admin: 08/12/17 09:39 Dose: 4 drop Docusate Sodium (Colace) 100 mg PO BID [facility] Last Admin: 08/12/17 09:39 Dose: 100 mg Enoxaparin Sodium (Lovenox) 70 mg SC Q12 [facility] PRN Reason: Protocol Last Admin: 08/12/17 09:35 Dose: 70 mg Gabapentin (Neurontin) 600 mg PO BID [facility] Last Admin: 08/12/17 09:36 Dose: 600 mg Cefepime HCl 2 gm/ Sodium (Chloride) 100 mls @ 100 mls/hr IVPB Q8 [facility] PRN Reason: Protocol Insulin Detemir (Levemir) 50 units SC DAILY [facility] Last Admin: 08/12/17 09:37 Dose: 50 unit Insulin Human Lispro (Humalog) 10 units SC DAILY [facility] Last Admin: 08/12/17 11:59 Dose: 10 units Isosorbide Mononitrate (Imdur) 60 mg PO DAILY [facility] Last Admin: 08/12/17 09:38 Dose: 60 mg Metformin HCl (Glucophage) 850 mg PO BIDWM [facility] Last Admin: 08/12/17 09:37 Dose: 850 mg Pantoprazole Sodium (Protonix Ec Tab) 40 mg PO DAILY [facility] Last Admin: 08/12/17 09:37 Dose: 40 mg Polyethylene Glycol (Miralax) 17 gm PO DAILY [facility] Last Admin: 08/12/17 09:37 Dose: Not Given Sitagliptin Phosphate (Januvia) 100 mg PO DAILY [facility] Last Admin: 08/12/17 09:40 Dose: 100 mg Sodium Chloride ([place] Nasal [place]) 1 sprays SARAH TID PRN PRN Reason: Dry nasal passages Last Admin: 08/09/17 15:43 Dose: 1 spray Tramadol HCl (Ultram) 50 mg PO Q8 PRN PRN Reason: Pain, moderate (4-7) Last Admin: 08/11/17 19:35 Dose: 50 mg - Labs Labs: 08/11/17 11:23 08/11/17 11:23 - Constitutional Appears: No Acute Distress - Head Exam Head Exam: ATRAUMATIC Additional comments: right facial droop - Eye Exam Eye Exam: Normal appearance - Respiratory Exam Respiratory Exam: Clear to Ausculation Bilateral. absent: Rhonchi, Wheezes - Cardiovascular Exam Cardiovascular Exam: REGULAR RHYTHM, +S1, +S2 - GI/Abdominal Exam GI & Abdominal Exam: Soft, Normal Bowel Sounds. absent: Tenderness - Extremities Exam Extremities Exam: Normal Inspection. absent: Calf Tenderness - Neurological Exam Neurological Exam: Alert, Awake - Skin Skin Exam: Normal Color, Warm Assessment and Plan (1) Mastoiditis Assessment & Plan: CT: Consistent with Otomastoiditis - ID consult appreciated - C/W Maxapine 2gm Q8 - New onset fever: Blood culture and urine cultures taken Status: Acute (2) Chest pain Assessment & Plan: Cause of chest pain Unspecified possibly MSK in orgin Toponin x 3 negative. Cardio consult appreciated Perserved EF on Echo Pt not currently a candidate for invasive intervention. F/U with cardio outpatient. Status: Acute (3) Diabetes mellitus Assessment & Plan: Diabetes Mellitus type II - C/W home insulin regimine. - C/W metformin and Junuvia today Status: Chronic (4) DVT prophylaxis Status: Acute (5) Mild intermittent asthma Assessment & Plan: albuterol inhaler ordered Status: Acute <Ellis Abreu - Last Filed: 08/12/17 23:22> Objective - Vital Signs/Intake and Output Vital Signs (last 24 hours): Temp Pulse Resp BP Pulse Ox 99.6 F 86 17 110/60 99 08/12/17 19:57 08/12/17 19:57 08/12/17 19:57 08/12/17 19:57 08/12/17 19:57 - Medications Medications: Current Medications Acetaminophen (Tylenol 325mg Tab) 650 mg PO QID PRN PRN Reason: Pain, moderate (4-7) Acetaminophen (Tylenol 325mg Tab) 650 mg PO Q4 PRN PRN Reason: Fever >100.4 F Last Admin: 08/12/17 12:12 Dose: 650 mg Al Hydrox/Mg Hydrox/Simethicone (Maalox Plus 30 Ml) 30 ml PO Q4 PRN PRN Reason: Indigestion / Heartburn Last Admin: 08/12/17 17:06 Dose: 30 ml Albuterol (Ventolin Hfa 90 Mcg/Actuation (8 G)) 1 puff INH RQ4 PRN PRN Reason: Shortness of Breath Aspirin (Aspirin Chewable) 81 mg PO DAILY [facility] Last Admin: 08/12/17 09:39 Dose: 81 mg Atenolol (Tenormin) 25 mg PO DAILY [facility] Last Admin: 08/12/17 09:38 Dose: 25 mg Atorvastatin Calcium (Lipitor) 80 mg PO DAILY [facility] Last Admin: 08/12/17 09:35 Dose: 80 mg Benzocaine/Menthol (Cepacol Sore Throat) 1 nick PO Q2 PRN PRN Reason: Sore Throat Last Admin: 08/12/17 03:20 Dose: 1 nick Cholecalciferol (Vitamin D) 2,000 intlu PO DAILY [facility] Last Admin: 08/12/17 09:38 Dose: 2,000 intlu Ciprofloxacin/Dexamethasone (Ciprodex Otic) 4 drop AD BID [facility] Last Admin: 08/12/17 17:09 Dose: 4 drop Docusate Sodium (Colace) 100 mg PO BID [facility] Last Admin: 08/12/17 17:09 Dose: 100 mg Enoxaparin Sodium (Lovenox) 70 mg SC Q12 [facility] PRN Reason: Protocol Last Admin: 08/12/17 21:37 Dose: 70 mg Gabapentin (Neurontin) 600 mg PO BID [facility] Last Admin: 08/12/17 17:07 Dose: 600 mg Cefepime HCl 2 gm/ Sodium (Chloride) 100 mls @ 100 mls/hr IVPB Q8 [facility] PRN Reason: Protocol Last Admin: 08/12/17 17:07 Dose: 100 mls/hr Sodium Chloride (Sodium Chloride 0.9%) 1,000 mls @ 999 mls/hr IV .Q1H1M [facility] Stop: 08/13/17 17:45 Last Admin: 08/12/17 17:59 Dose: 999 mls/hr Insulin Detemir (Levemir) 50 units SC DAILY [facility] Last Admin: 08/12/17 09:37 Dose: 50 unit Insulin Human Lispro (Humalog) 10 units SC DAILY [facility] Last Admin: 08/12/17 11:59 Dose: 10 units Isosorbide Mononitrate (Imdur) 60 mg PO DAILY [facility] Last Admin: 08/12/17 09:38 Dose: 60 mg Metformin HCl (Glucophage) 850 mg PO BIDWM [facility] Last Admin: 08/12/17 17:09 Dose: Not Given Pantoprazole Sodium (Protonix Ec Tab) 40 mg PO DAILY [facility] Last Admin: 08/12/17 09:37 Dose: 40 mg Polyethylene Glycol (Miralax) 17 gm PO DAILY [facility] Last Admin: 08/12/17 09:37 Dose: Not Given Sitagliptin Phosphate (Januvia) 100 mg PO DAILY [facility] Last Admin: 08/12/17 09:40 Dose: 100 mg Sodium Chloride ([place] Nasal [place]) 1 sprays SARAH TID PRN PRN Reason: Dry nasal passages Last Admin: 08/09/17 15:43 Dose: 1 spray Tramadol HCl (Ultram) 50 mg PO Q8 PRN PRN Reason: Pain, moderate (4-7) Last Admin: 08/11/17 19:35 Dose: 50 mg - Labs Labs: 08/12/17 18:06 08/12/17 18:06 Assessment and Plan (1) Chest pain Status: Acute (2) Hypertension Status: Acute (3) Mastoiditis Status: Acute (4) Diabetes mellitus Status: Chronic - Assessment and Plan (Free Text) Plan: I was present during evaluation and discussed with Dr Vasquez re plans of care and tx. Ellis Arbeu M.D.
--- NOTE | 2017-08-12 14:27 | CP.PCM.CON ---
History of Present Illness - History of Present Illness History of Present Illness: This is a 66 y/o male admitted form last night for chest pain He has a dx of CAD and scheduled for further CARDIAC CATH Has a hx of HTN and DM 2. ID consulted for chronic OM right ear- hx of Malignant otitis ==> treated with 6 + weeks IV rx in [place] WITH IV CEFEPIME- REPORTEDLY + FOR PSEUDOMONAS AT THIS TIME IMAGING HERE + FOR OTOMASTOIDITIS DENIES DRAINAGE + PAIN Review of Systems - Constitutional Constitutional: As Per HPI - EENT Eyes: absent: As Per HPI, Blind Spots, Blurred Vision, Change in Vision, Decreased Night Vision, Diplopia, Discharge, Dry Eye, Exophthalmos, Floaters, Irritation, Itchy Eyes, Loss of Peripheral Vision, Pain, Photophobia, Requires Corrective Lenses, Sees Flashes, Spots in Vision, Tunnel Vision, Other Visual Disturbances, Loss of Vision, Other Ears: As Per HPI, Decreased Hearing, Ear Pain Nose/Mouth/Throat: absent: As Per HPI, Epistaxis, Nasal Congestion, Nasal Discharge, Nasal Obstruction, Nasal Trauma, Nose Pain, Post Nasal Drip, Sinus Pain, Sinus Pressure, Bleeding Gums, Change in Voice, Dental Pain, Dry Mouth, Dysphagia, Halitosis, Hoarsness, Lip Swelling, Mouth Lesions, Mouth Pain, Odynophagia, Sore Throat, Throat Swelling, Tongue Swelling, Facial Pain, Neck Pain, Neck Mass, Other - Cardiovascular Cardiovascular: As Per HPI - Respiratory Respiratory: absent: As Per HPI, Cough, Dyspnea, Hemoptysis, Dyspnea on Exertion , Wheezing, Snoring, Stridor, Pain on Inspiration, Chest Congestion, Excessive Mucous Production, Change in Mucous Color, Pain with Coughing, Other - Gastrointestinal Gastrointestinal: absent: As Per HPI, Abdominal Pain, Belching, Bloating, Change in Bowel Habits, Change in Stool Character, Coffee Ground Emesis, Constipation, Cramping, Diarrhea, Dyspepsia, Dysphagia, Early Satiety, Excessive Flatus, Fecal Incontinence, Heartburn, Hematemesis, Hematochezia, Loose Stools, Melena, Nausea, Odynophagia, Temesmus, Vomiting, Other - Genitourinary Genitourinary: absent: As Per HPI, Change in Urinary Stream, Difficulty Urinating, Dysuria, Flank Pain, Hematuria, Pyuria, Nocturia, Urinary Incontinence, Urinary Frequency, Urinary Hesitance, Urinary Urgency, Voiding Freq/Small Amts, Freq UTI, Hx Renal/Bladder Calculi, Hx /Renal Surgery, Bladder Distension, Other - Musculoskeletal Musculoskeletal: absent: As Per HPI, Abnormal Gait, Arthralgias, Atrophy, Back Pain, Deformity, Joint Swelling, Limited Range of Motion, Loss of Height, Muscle Cramps, Muscle Weakness, Myalgias, Neck Pain, Numbness, Radiating Pain into Limb, Stiffness, Tingling, Other - Integumentary Integumentary: absent: As Per HPI, Acne, Alopecia, Bleeding Lesions, Change in Hair, Change in Nails, Change in Pigmentation, Changing Lesions, Dry Skin, Erythema, Furuncle, Hirsutism, Lesions, New Lesions, Non-Healing Lesions, Photosensitivity, Pruritus, Rash, Skin Pain, Skin Ulcer, Sores, Striae, Swelling , Unusual Bruising, Wounds, Jaundice, Other - Neurological Neurological: absent: As Per HPI, Abnormal Gait, Abnormal Hearing, Abnormal Movements, Abnormal Speech, Behavioral Changes, Burning Sensations, Confusion, Convulsions, Disequilibrium, Dizziness, Numbness, Focal Weakness, Frequent Falls , Headaches, Lack of Coordination, Loss of Vision, Memory Loss, Paresthesias, Radicular Pain, Restless Legs, Sensory Deficit, Syncope, Tingling, Tremor, Vertigo, Weakness, Other Visual Disturbances, Other - Psychiatric Psychiatric: absent: As Per HPI, Abnormal Sleep Pattern, Anhedonia, Anxiety, Auditory Hallucinations, Behavioral Changes, Change in Appetite, Change in Libido, Confusion, Depression, Difficulty Concentrating, Hallucinations, Homicidal Ideation, Hopelessness, Irritability, Memory Loss, Mood Swings, Panic Attacks, Paranoia, Suicidal Ideation, Visual Hallucinations, Tactile Hallucinations, Other - Endocrine Endocrine: absent: As Per HPI, Change in Body Appearance, Change in Libido, Cold Intolorance, Deepening of Voice, Excessive Sweating, Fatigue, Flushing, Heat Intolorance, Increase in Ring/Shoe/Hat Size, Palpitations, Polydipsia, Polyphagia, Polyuria, Other - Hematologic/Lymphatic Hematologic: absent: As Per HPI, Easy Bleeding, Easy Bruising, Lymphadenopathy, Other Past Patient History - Past Medical History & Family History Past Medical History?: Yes - Past Social History Smoking Status: Former Smoker - CARDIAC Hx Hypertension: Yes - ENDOCRINE/METABOLIC Hx Diabetes Mellitus Type 2: Yes - MUSCULOSKELETAL/RHEUMATOLOGICAL Hx Falls: Yes Hx Osteomyelitis: Yes (skull base) - PSYCHIATRIC Hx Substance Use: No Meds Allergies/Adverse Reactions: Allergies Allergy/AdvReac Type Severity Reaction Status Date / Time No Known Allergies Allergy Verified 08/08/17 21:52 - Medications Medications: Current Medications Acetaminophen (Tylenol 325mg Tab) 650 mg PO QID PRN PRN Reason: Pain, moderate (4-7) Acetaminophen (Tylenol 325mg Tab) 650 mg PO Q4 PRN PRN Reason: Fever >100.4 F Last Admin: 08/12/17 12:12 Dose: 650 mg Al Hydrox/Mg Hydrox/Simethicone (Maalox Plus 30 Ml) 30 ml PO Q4 PRN PRN Reason: Indigestion / Heartburn Last Admin: 08/12/17 09:49 Dose: 30 ml Albuterol (Ventolin Hfa 90 Mcg/Actuation (8 G)) 1 puff INH RQ4 PRN PRN Reason: Shortness of Breath Aspirin (Aspirin Chewable) 81 mg PO DAILY [facility] Last Admin: 08/12/17 09:39 Dose: 81 mg Atenolol (Tenormin) 25 mg PO DAILY [facility] Last Admin: 08/12/17 09:38 Dose: 25 mg Atorvastatin Calcium (Lipitor) 80 mg PO DAILY [facility] Last Admin: 08/12/17 09:35 Dose: 80 mg Benzocaine/Menthol (Cepacol Sore Throat) 1 nick PO Q2 PRN PRN Reason: Sore Throat Last Admin: 08/12/17 03:20 Dose: 1 nick Cholecalciferol (Vitamin D) 2,000 intlu PO DAILY [facility] Last Admin: 08/12/17 09:38 Dose: 2,000 intlu Ciprofloxacin/Dexamethasone (Ciprodex Otic) 4 drop AD BID [facility] Last Admin: 08/12/17 09:39 Dose: 4 drop Docusate Sodium (Colace) 100 mg PO BID [facility] Last Admin: 08/12/17 09:39 Dose: 100 mg Enoxaparin Sodium (Lovenox) 70 mg SC Q12 [facility] PRN Reason: Protocol Last Admin: 08/12/17 09:35 Dose: 70 mg Gabapentin (Neurontin) 600 mg PO BID [facility] Last Admin: 08/12/17 09:36 Dose: 600 mg Cefepime HCl 2 gm/ Sodium (Chloride) 100 mls @ 100 mls/hr IVPB Q8 [facility] PRN Reason: Protocol Insulin Detemir (Levemir) 50 units SC DAILY [facility] Last Admin: 08/12/17 09:37 Dose: 50 unit Insulin Human Lispro (Humalog) 10 units SC DAILY [facility] Last Admin: 08/12/17 11:59 Dose: 10 units Isosorbide Mononitrate (Imdur) 60 mg PO DAILY [facility] Last Admin: 08/12/17 09:38 Dose: 60 mg Metformin HCl (Glucophage) 850 mg PO BIDWM [facility] Last Admin: 08/12/17 09:37 Dose: 850 mg Pantoprazole Sodium (Protonix Ec Tab) 40 mg PO DAILY [facility] Last Admin: 08/12/17 09:37 Dose: 40 mg Polyethylene Glycol (Miralax) 17 gm PO DAILY [facility] Last Admin: 08/12/17 09:37 Dose: Not Given Sitagliptin Phosphate (Januvia) 100 mg PO DAILY [facility] Last Admin: 08/12/17 09:40 Dose: 100 mg Sodium Chloride ([place] Nasal [place]) 1 sprays SARAH TID PRN PRN Reason: Dry nasal passages Last Admin: 08/09/17 15:43 Dose: 1 spray Tramadol HCl (Ultram) 50 mg PO Q8 PRN PRN Reason: Pain, moderate (4-7) Last Admin: 08/11/17 19:35 Dose: 50 mg Physical Exam - Constitutional Appears: Non-toxic, Cachectic, Chronically Ill - Head Exam Head Exam: ATRAUMATIC, NORMAL INSPECTION, NORMOCEPHALIC - Eye Exam Eye Exam: EOMI, PERRL. absent: Scleral icterus Pupil Exam: NORMAL ACCOMODATION - ENT Exam ENT Exam: Mucous Membranes Dry, Normal Oropharynx Additional comments: + TEND OVER MASTOID RIGHT SIDE - Neck Exam Neck exam: Negative for: Lymphadenopathy - Respiratory Exam Respiratory Exam: Decreased Breath Sounds, Rhonchi - Cardiovascular Exam Cardiovascular Exam: REGULAR RHYTHM, +S1, +S2 - GI/Abdominal Exam GI & Abdominal Exam: Diminished Bowel Sounds, Soft. absent: Tenderness - Rectal Exam Rectal Exam: Deferred - Exam Exam: NORMAL INSPECTION - Extremities Exam Extremities exam: Positive for: pedal pulses present. Negative for: calf tenderness, pedal edema, tenderness - Back Exam Back exam: absent: CVA tenderness (L), CVA tenderness (R) - Neurological Exam Neurological exam: Alert, CN II-XII Intact, Oriented x3, Reflexes Normal - Psychiatric Exam Psychiatric exam: Depressed - Skin Skin Exam: Dry, Intact Results - Vital Signs Recent Vital Signs: Last Vital Signs Temp 100.4 F H 08/12/17 13:12 Pulse 98 H 08/12/17 13:21 Resp 20 08/12/17 12:43 BP 112/63 08/12/17 12:43 Pulse Ox 95 08/12/17 12:43 - Labs Result Diagrams: 08/12/17 18:06 08/12/17 18:06 Labs: Laboratory Results - last 24 hr 08/11/17 08/11/17 08/12/17 16:07 20:57 05:10 POC Glucose (mg/dL) 238 H 211 H 106 08/12/17 10:38 POC Glucose (mg/dL) 231 H Assessment & Plan (1) DVT prophylaxis Status: Acute (2) Mastoiditis Status: Acute (3) Mild intermittent asthma Status: Acute (4) Diabetes mellitus Status: Chronic (5) Mild persistent asthma Status: Chronic - Assessment and Plan (Free Text) Assessment: CHRONIC OM RIGHT MASTOIDS MAY EVENTUALLY NEED DEBRIDEMENT WOULD OBTAIN MRI, BONE SCAN AND ENT EVAL CONT IV ANTIBIOTICS MAY NEED [facility] RX CARDIA EVAL IN PROGRESS WILL REVIEW OLD CHART CASE DISCUSSED IN DETAIL WITH DR BUSTAMANTE
[2017-08-12] MEDS: Cefepime 2 GM in Sodium Chloride 0.9% 100 ML IVPB SCH ×2 (17:06→17:07)
[2017-08-12] MEDS: Sodium Chloride 0.9% 1,000 ML IV SCH (17:59)
[2017-08-12 18:48] LABS: BASO % 0.3 % (0.0-2.0); EOS % 0.6 % (0.0-4.0); HEMOGLOBIN 9.4 g/dL (12.0-18.0); LYMPH # 1.1 K/uL (1.0-4.3); LYMPH % 15.6 % (20.0-40.0); MEAN CORPUSCULAR HGB CONC 30.8 g/dL (33.0-37.0); MONO # 0.8 K/uL (0.0-0.8); MONO % 11.8 % (0.0-10.0); NEUT # 4.8 K/uL (1.8-7.0); NEUT % 71.7 % (50.0-75.0); NRBC % 0.1 % (0.0-0.0); RBC 3.75 Mil/uL (4.40-5.90); RED CELL DISTRIBUTION WIDTH 18.6 % (11.5-14.5); WHITE BLOOD COUNT 6.7 K/uL (4.8-10.8)
[2017-08-12 19:04] LABS: ALBUMIN 3.5 g/dL (3.5-5.0); ALT/SGPT 38 U/L (21-72); AST/SGOT 31 U/L (17-59); BLOOD UREA NITROGEN 10 mg/dl (9-20); CALCIUM 8.7 mg/dL (8.4-10.2); GFR AFRICAN-AMERICAN > 60; GFR NON-AFRICAN AMERICAN > 60
--- NOTE | 2017-08-12 22:16 | PN ---
DATE: SUBJECTIVE: The patient denies chest pain at this time and complains of right earache. PHYSICAL EXAMINATION: VITAL SIGNS: Blood pressure 91/52, heart rate 88, temperature 99, and respirations 16. HEENT: The patient has difficulty closing his right eye completely. CHEST: Clear. HEART: S1 and S2 regular. EXTREMITIES: No edema. LABORATORY DATA: Head CT scan reveals complete opacification of the right mastoid and right middle ear, suggestive of otomastoiditis. No CT evidence of dural sinus thrombosis. No evidence of acute pathology in the brain. Echocardiogram revealed normal left ventricular size and systolic function, ejection fraction ranged from 60-65%. ASSESSMENT: 1. Right otomastoiditis. 2. History of coronary artery disease, requiring coronary artery bypass surgery. Recommended for coronary artery bypass surgery by the [facility]. 3. Chest pain, myocardial infarction was ruled out. RECOMMENDATIONS: Continue aspirin 81 mg once a day, IV cefepime 2 g q.8 hours., Glucophage 850 mg twice a day, Imdur 60 mg once a day, and Tenormin 25 mg once a day. The patient is not a suitable candidate for CABG at this time. There is no unstable angina or acute ischemic EKG changes. Benjamin Patton MD
[2017-08-13] MEDS: Cefepime 2 GM in Sodium Chloride 0.9% 100 ML IVPB SCH ×3 (00:21→16:59)
[2017-08-13] MEDS: Albuterol-Ipratrop 3 mg / 0.5 (3 ml) UD INH PRN (01:23)
[2017-08-13 03:10] LABS: URINE BILIRUBIN NEGATIVE (NEGATIVE); URINE BLOOD NEGATIVE (NEGATIVE); URINE CLARITY CLEAR (Clear); URINE COLOR YELLOW (YELLOW); URINE GLUCOSE (UA) >=500 mg/dL (Normal); URINE LEUKOCYTE ESTERASE NEG Leu/uL (Negative); URINE NITRATE NEGATIVE (NEGATIVE); URINE PROTEIN 30 mg/dL (NEGATIVE); URINE UROBILINOGEN 0.2-1.0 mg/dL (0.2-1.0)
--- NOTE | 2017-08-13 06:59 | PQF GENQUE ---
This form is a permanent part of the medical record 08/13/17 Dr. Abreu, Please clarify acuity of Asthma: With or Without Exacerbation. Documentation of mild intermittent asthma. Patient having some SOB and wheezing and Ventolin HFA and prn Duonebs ordered. Clarification of your documentation is requested to better reflect the severity of illness and intensity of treatment of your patient. Indicators present [] Specify: [] [] Specify: [] [] Specify: [] [] Specify: [] Location in the medical record that reflects the above clinical findings: [] Treatment Provided: [] PHYSICIAN'S RESPONSE Based on your medical judgment of the clinical indicators outlined above please clarify the following: [] Practitioner response [] If unable to determine, please check the box, sign and date. Present On Admission (POA) Indicator: [] Present at the time of admission [] Not present at the time of admission [] Clinically Undetermined In responding to this query, please exercise your independent professional judgment. The fact that a question is asked does not imply that any particular answer is desired or expected. Thank you for your clarification on this documentation. If you have any questions please call:ext [phone] * Thank you, Vandana Gómez RN CDMP MTDD
[2017-08-13] MEDS: Insulin Lispro (humaLOG) 100 Units/ml Inj SC SCH (09:06)
[2017-08-13] MEDS: Insulin Detemir 100 Units/ml Inj SC SCH (09:07)
[2017-08-13] MEDS: Benzocaine/Menthol (Cepacol) Lozenge PO PRN (09:08)
[2017-08-13] MEDS: Ciprofloxacin/Dexamethasone OTIC SUSP AD SCH ×2 (09:08→17:00)
[2017-08-13] MEDS: POLYETHYLENE GLYCOL 3350 17 GM/Dose PACKET PO SCH (09:09)
[2017-08-13] MEDS: Pantoprazole 40 mg EC Tab PO SCH (09:09)
[2017-08-13] MEDS: Enoxaparin 80 mg Syringe SC SCH ×2 (09:10→21:14)
[2017-08-13] MEDS: Sodium Chloride 0.9% 1,000 ML IV SCH (09:11)
[2017-08-13] MEDS: Cholecalciferol 1,000 INTLU TAB PO SCH (09:12)
--- NOTE | 2017-08-13 09:59 | CP.PCM.PN ---
<Elvira Vasquez - Last Filed: 08/13/17 11:04> Subjective - Date & Time of Evaluation Date of Evaluation: 08/13/17 Time of Evaluation: 09:59 - Subjective Subjective: 66 YO M seen resting comfortably. Patient complains of some throat irritation. Denies any cough or neck swelling. Objective - Vital Signs/Intake and Output Vital Signs (last 24 hours): Temp Pulse Resp BP Pulse Ox 99.7 F H 84 18 95/59 L 98 08/13/17 04:59 08/13/17 04:59 08/13/17 04:59 08/13/17 04:59 08/13/17 04:59 - Medications Medications: Current Medications Acetaminophen (Tylenol 325mg Tab) 650 mg PO QID PRN PRN Reason: Pain, moderate (4-7) Acetaminophen (Tylenol 325mg Tab) 650 mg PO Q4 PRN PRN Reason: Fever >100.4 F Last Admin: 08/13/17 00:20 Dose: 650 mg Al Hydrox/Mg Hydrox/Simethicone (Maalox Plus 30 Ml) 30 ml PO Q4 PRN PRN Reason: Indigestion / Heartburn Last Admin: 08/12/17 17:06 Dose: 30 ml Albuterol (Ventolin Hfa 90 Mcg/Actuation (8 G)) 1 puff INH RQ4 PRN PRN Reason: Shortness of Breath Albuterol/Ipratropium (Duoneb 3 Mg/0.5 Mg (3 Ml) Ud) 3 ml INH RQ6 PRN PRN Reason: Shortness of Breath Last Admin: 08/13/17 01:23 Dose: 3 ml Aspirin (Aspirin Chewable) 81 mg PO DAILY [facility] Last Admin: 08/13/17 09:10 Dose: 81 mg Atenolol (Tenormin) 25 mg PO DAILY [facility] Last Admin: 08/13/17 09:09 Dose: Not Given Atorvastatin Calcium (Lipitor) 80 mg PO DAILY [facility] Last Admin: 08/13/17 09:11 Dose: 80 mg Benzocaine/Menthol (Cepacol Sore Throat) 1 nick PO Q2 PRN PRN Reason: Sore Throat Last Admin: 08/13/17 09:08 Dose: 1 nick Cholecalciferol (Vitamin D) 2,000 intlu PO DAILY [facility] Last Admin: 08/13/17 09:12 Dose: 2,000 intlu Ciprofloxacin/Dexamethasone (Ciprodex Otic) 4 drop AD BID [facility] Last Admin: 08/13/17 09:08 Dose: 4 drop Docusate Sodium (Colace) 100 mg PO BID [facility] Last Admin: 08/13/17 09:12 Dose: 100 mg Enoxaparin Sodium (Lovenox) 70 mg SC Q12 JUANA PRN Reason: Protocol Last Admin: 08/13/17 09:10 Dose: 70 mg Gabapentin (Neurontin) 600 mg PO BID [facility] Last Admin: 08/13/17 09:07 Dose: 600 mg Cefepime HCl 2 gm/ Sodium (Chloride) 100 mls @ 100 mls/hr IVPB Q8 [facility] PRN Reason: Protocol Last Admin: 08/13/17 09:10 Dose: 100 mls/hr Sodium Chloride (Sodium Chloride 0.9%) 1,000 mls @ 999 mls/hr IV .Q1H1M [facility] Stop: 08/13/17 17:45 Last Admin: 08/13/17 09:11 Dose: 999 mls/hr Insulin Detemir (Levemir) 50 units SC DAILY [facility] Last Admin: 08/13/17 09:07 Dose: 50 unit Insulin Human Lispro (Humalog) 10 units SC DAILY [facility] Last Admin: 08/13/17 09:06 Dose: 10 units Isosorbide Mononitrate (Imdur) 60 mg PO DAILY [facility] Last Admin: 08/13/17 09:06 Dose: 60 mg Metformin HCl (Glucophage) 850 mg PO BIDWM [facility] Last Admin: 08/13/17 09:07 Dose: 850 mg Pantoprazole Sodium (Protonix Ec Tab) 40 mg PO DAILY [facility] Last Admin: 08/13/17 09:09 Dose: 40 mg Polyethylene Glycol (Miralax) 17 gm PO DAILY [facility] Last Admin: 08/13/17 09:09 Dose: 17 gm Sitagliptin Phosphate (Januvia) 100 mg PO DAILY [facility] Last Admin: 08/13/17 09:07 Dose: 100 mg Sodium Chloride ([place] Nasal [place]) 1 sprays SARAH TID PRN PRN Reason: Dry nasal passages Last Admin: 08/09/17 15:43 Dose: 1 spray Tramadol HCl (Ultram) 50 mg PO Q8 PRN PRN Reason: Pain, moderate (4-7) Last Admin: 08/11/17 19:35 Dose: 50 mg - Labs Labs: 08/12/17 18:06 08/12/17 18:06 - Constitutional Appears: No Acute Distress - Head Exam Head Exam: NORMAL INSPECTION Additional comments: right sided facial droop (chronic) - ENT Exam ENT Exam: Mucous Membranes Moist Additional comments: No pharngeal erythema or tonsilar exudates - Respiratory Exam Respiratory Exam: Clear to Ausculation Bilateral, NORMAL BREATHING PATTERN. absent: Rhonchi, Wheezes - Cardiovascular Exam Cardiovascular Exam: REGULAR RHYTHM, +S1, +S2 - GI/Abdominal Exam GI & Abdominal Exam: Soft, Normal Bowel Sounds. 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 Mora Consulted CT: Consistent with Otomastoiditis - CT of temporal bone ordered - ID consult appreciated - C/W Maxapine 2gm Q8 - New onset fever: Blood culture and urine cultures taken Status: Acute (2) Chest pain Assessment & Plan: Cause of chest pain Unspecified possibly MSK in orgin Toponin x 3 negative. Cardio consult appreciated Perserved EF on Echo Pt not currently a candidate for invasive intervention. F/U with cardio outpatient Status: Acute (3) Diabetes mellitus Assessment & Plan: Diabetes Mellitus type II - C/W home insulin regimine. - C/W metformin and Junuvia today Status: Chronic (4) Mild intermittent asthma Assessment & Plan: W/ an acute exacerbation - Albuterol PRN ordered Status: Acute (5) DVT prophylaxis Status: Acute <Ellis Abreu L - Last Filed: 08/16/17 13:24> Objective - Vital Signs/Intake and Output Vital Signs (last 24 hours): Temp Pulse Resp BP Pulse Ox 100.8 F H 86 18 111/64 93 L 08/16/17 12:10 08/16/17 12:10 08/16/17 12:10 08/16/17 12:10 08/16/17 12:10 Intake and Output: 08/16/17 08/16/17 06:59 18:59 Intake Total 500 Output Total 400 Balance 100 - Medications Medications: Current Medications Acetaminophen (Tylenol 325mg Tab) 650 mg PO QID PRN PRN Reason: Pain, moderate (4-7) Last Admin: 08/15/17 06:17 Dose: 650 mg Acetaminophen (Tylenol 325mg Tab) 650 mg PO Q4 PRN PRN Reason: Fever >100.4 F Last Admin: 08/16/17 00:47 Dose: 650 mg Al Hydrox/Mg Hydrox/Simethicone (Maalox Plus 30 Ml) 30 ml PO Q4 PRN PRN Reason: Indigestion / Heartburn Last Admin: 08/15/17 03:08 Dose: 30 ml Albuterol (Ventolin Hfa 90 Mcg/Actuation (8 G)) 1 puff INH RQ4 PRN PRN Reason: Shortness of Breath Albuterol/Ipratropium (Duoneb 3 Mg/0.5 Mg (3 Ml) Ud) 3 ml INH RQ6 PRN PRN Reason: Shortness of Breath Last Admin: 08/16/17 12:28 Dose: 3 ml Aspirin (Aspirin Chewable) 81 mg PO DAILY [facility] Last Admin: 08/16/17 09:00 Dose: 81 mg Atenolol (Tenormin) 25 mg PO DAILY [facility] Last Admin: 08/16/17 09:00 Dose: 25 mg Atorvastatin Calcium (Lipitor) 80 mg PO DAILY [facility] Last Admin: 08/16/17 09:00 Dose: 80 mg Benzocaine/Menthol (Cepacol Sore Throat) 1 nick PO Q2 PRN PRN Reason: Sore Throat Last Admin: 08/16/17 10:13 Dose: 1 nick Cholecalciferol (Vitamin D) 2,000 intlu PO DAILY [facility] Last Admin: 08/16/17 09:00 Dose: 2,000 intlu Ciprofloxacin/Dexamethasone (Ciprodex Otic) 4 drop AD BID [facility] Last Admin: 08/16/17 09:00 Dose: 4 drop Docusate Sodium (Colace) 100 mg PO BID [facility] Last Admin: 08/16/17 09:00 Dose: 100 mg Enoxaparin Sodium (Lovenox) 70 mg SC Q12 JUANA PRN Reason: Protocol Last Admin: 08/16/17 10:17 Dose: 70 mg Gabapentin (Neurontin) 600 mg PO BID [facility] Last Admin: 08/16/17 09:00 Dose: 600 mg Cefepime HCl 2 gm/ Sodium (Chloride) 100 mls @ 100 mls/hr IVPB Q8 [facility] PRN Reason: Protocol Last Admin: 08/16/17 09:00 Dose: 100 mls/hr Insulin Detemir (Levemir) 35 units SC HS [facility] Last Admin: 08/15/17 21:58 Dose: 35 units Isosorbide Mononitrate (Imdur) 60 mg PO DAILY [facility] Last Admin: 08/16/17 09:00 Dose: 60 mg Metformin HCl (Glucophage) 850 mg PO BIDWM [facility] Last Admin: 08/16/17 09:00 Dose: 850 mg Pantoprazole Sodium (Protonix Ec Tab) 40 mg PO DAILY [facility] Last Admin: 08/16/17 09:00 Dose: 40 mg Polyethylene Glycol (Miralax) 17 gm PO DAILY [facility] Last Admin: 08/16/17 10:28 Dose: Not Given Sitagliptin Phosphate (Januvia) 100 mg PO DAILY [facility] Last Admin: 08/16/17 09:00 Dose: 100 mg Sodium Chloride ([place] Nasal [place]) 1 sprays SARAH TID PRN PRN Reason: Dry nasal passages Last Admin: 08/16/17 12:21 Dose: 1 spray Tramadol HCl (Ultram) 50 mg PO Q8 PRN PRN Reason: Pain, moderate (4-7) Last Admin: 08/11/17 19:35 Dose: 50 mg - Labs Labs: 08/14/17 04:17 08/14/17 04:17 Assessment and Plan (1) Chest pain Status: Acute (2) Hypertension Status: Acute (3) Mastoiditis Status: Acute (4) Diabetes mellitus Status: Chronic - Assessment and Plan (Free Text) Plan: I was present during evaluation and discussed with Dr Vasquez re plans of care and tx Ellis Abreu M.D.
--- NOTE | 2017-08-13 11:58 | RAD ---
HISTORY: fever shortness of breath COMPARISON: Chest radiograph dated 08/08/2017. TECHNIQUE: Chest PA and lateral FINDINGS: LUNGS: No active pulmonary disease. PLEURA: No significant pleural effusion identified. No pneumothorax apparent. CARDIOVASCULAR: Cardiomediastinal silhouette stably prominent. OSSEOUS STRUCTURES: Unchanged. VISUALIZED UPPER ABDOMEN: Normal. OTHER FINDINGS: Left upper extremity PICC, unchanged. IMPRESSION: No active disease.
--- NOTE | 2017-08-13 15:06 | CT ---
PROCEDURE: CT HEAD WITHOUT CONTRAST. HISTORY: attn to Temporal bone- eval for ? bone destruction COMPARISON: 08/11/2017. TECHNIQUE: Axial computed tomography images were obtained through the head/brain without intravenous contrast. Radiation dose: Total exam DLP = 1217.15 mGy-cm. This CT exam was performed using one or more of the following dose reduction techniques: Automated exposure control, adjustment of the mA and/or kV according to patient size, and/or use of iterative reconstruction technique. FINDINGS: HEMORRHAGE: No intracranial hemorrhage. BRAIN: No mass effect or edema. No atrophy or chronic microvascular ischemic changes. VENTRICLES: Unremarkable. No hydrocephalus. CALVARIUM: Unremarkable. PARANASAL SINUSES: Unremarkable as visualized. No significant inflammatory changes. MASTOID AIR CELLS: Complete opacification of right mastoid air cells, no bony destruction apparent. No interval change compared to the prior study. OTHER FINDINGS: None. IMPRESSION: No acute intracranial abnormalities. No significant findings to account for the clinical presentation. No significant interval change compared to the prior examination(s).
[2017-08-13] MEDS: Alum-Mag Hydrox-Simethicone Susp (30 mL) PO PRN (18:07)
[2017-08-14] MEDS: Cefepime 2 GM in Sodium Chloride 0.9% 100 ML IVPB SCH ×3 (00:17→16:13)
[2017-08-14 05:51] LABS: HEMOGLOBIN 9.5 g/dL (12.0-18.0); MEAN CELL VOLUME 80.6 fl (80.0-94.0); MEAN CORPUSCULAR HEMOGLOBIN 25.5 pg (27.0-31.0); MEAN CORPUSCULAR HGB CONC 31.7 g/dL (33.0-37.0); RBC 3.74 Mil/uL (4.40-5.90); RED CELL DISTRIBUTION WIDTH 17.9 % (11.5-14.5); WHITE BLOOD COUNT 8.4 K/uL (4.8-10.8)
[2017-08-14 06:10] LABS: BLOOD UREA NITROGEN 12 mg/dl (9-20); CALCIUM 8.9 mg/dL (8.4-10.2); GFR AFRICAN-AMERICAN > 60; GFR NON-AFRICAN AMERICAN > 60
--- NOTE | 2017-08-14 07:41 | CON ---
DATE: 08/13/2017 REASON FOR CONSULTATION: Malignant otitis externa. REQUESTING PHYSICIAN: Ellis Abreu MD. HISTORY OF PRESENT ILLNESS: This is a 66-year-old male who presents to the ER with right facial nerve paralysis, ear pain and drainage. The patient stated that [facility] and presented with the same problems. He was placed on IV antibiotics, had a PICC line placed and sent home. Currently, the patient has ear pain on the right margin intensity, constant with discharge He has had this for week. PAST MEDICAL HISTORY: As noted in the chart by me. MEDICATIONS: As noted in the chart by me. PHYSICAL EXAMINATION: HEAD: Atraumatic and normocephalic. FACE: Decreased movements on the right. CONSTITUTIONAL: Well-fed and well-nourished. COMMUNICATION: Communicates well and appropriately. EXTERNAL NOSE AND EARS: No masses. No lesions. No erythema. No edema. INTERNAL NOSE: Deviated septum. No masses. No lesions. No erythema. No edema. EARS: Right ear canal has severe edema with some discharge. ORAL CAVITY AND OROPHARYNX: No masses. No lesions. No erythema. No edema. LIPS AND GUMS: No masses. No lesions. No erythema. No edema. NECK: Supple. THYROID: No thyromegaly. No goiter. LYMPH NODES: No lymphadenopathy of the neck. IMPRESSION: I spoke to the resident who is taking care of the patient at the [facility]. He indicates to me that the patient has bone scan done as well as workup including an magnetic resonance imaging with diagnosis of malignant otitis externa and was discharged with a peripherally inserted central catheter line. The patient never followed up to get intravenous antibiotics and he came to the Emergency Room. The resident also indicates to me that the patient facial nerver weakness when he presented to the [facility]. ASSESSMENT: Malignant otitis externa, deviated septum, and ear drainage. PLAN: Continue IV antibiotics. We will obtain MRI of the IAC with gadolinium to ensure that there is no intracranial extension. We will also obtain cultures of the ear drainage. Theo Blair MD [facility]
[2017-08-14] MEDS: POLYETHYLENE GLYCOL 3350 17 GM/Dose PACKET PO SCH (08:59)
[2017-08-14] MEDS: Ciprofloxacin/Dexamethasone OTIC SUSP AD SCH ×2 (08:59→16:15)
[2017-08-14] MEDS: Enoxaparin 80 mg Syringe SC SCH ×2 (09:00→21:19)
[2017-08-14] MEDS: Cholecalciferol 1,000 INTLU TAB PO SCH (09:00)
[2017-08-14] MEDS: Insulin Detemir 100 Units/ml Inj SC SCH ×2 (09:01→21:20)
[2017-08-14] MEDS: Insulin Lispro (humaLOG) 100 Units/ml Inj SC SCH (09:01)
[2017-08-14] MEDS: Pantoprazole 40 mg EC Tab PO SCH (09:03)
[2017-08-14] MEDS ORDERED: Gadodiamide 287 MG/ML VIAL (15ML) IV ONE (09:24)
--- NOTE | 2017-08-14 10:03 | CP.PCM.PN ---
<Elvira Vasquez - Last Filed: 08/14/17 12:13> Subjective - Date & Time of Evaluation Date of Evaluation: 08/14/17 Time of Evaluation: 10:03 - Subjective Subjective: 66 YO M seen at bedside. Appears to be doing well. Denies any dizziness this morning. Patient has remained afebrile overnight - Denies chest pain , SOB, N/V/D. - Spoke with manager case: after workup is complete and patient is stable for discharge, [facility] will assist patient with IV antibiotics at home. Objective - Vital Signs/Intake and Output Vital Signs (last 24 hours): Temp Pulse Resp BP Pulse Ox 98.3 F 74 18 117/67 100 08/14/17 08:00 08/14/17 09:02 08/14/17 08:00 08/14/17 09:02 08/14/17 08:00 - Medications Medications: Current Medications Acetaminophen (Tylenol 325mg Tab) 650 mg PO QID PRN PRN Reason: Pain, moderate (4-7) Acetaminophen (Tylenol 325mg Tab) 650 mg PO Q4 PRN PRN Reason: Fever >100.4 F Last Admin: 08/13/17 00:20 Dose: 650 mg Al Hydrox/Mg Hydrox/Simethicone (Maalox Plus 30 Ml) 30 ml PO Q4 PRN PRN Reason: Indigestion / Heartburn Last Admin: 08/13/17 18:07 Dose: 30 ml Albuterol (Ventolin Hfa 90 Mcg/Actuation (8 G)) 1 puff INH RQ4 PRN PRN Reason: Shortness of Breath Albuterol/Ipratropium (Duoneb 3 Mg/0.5 Mg (3 Ml) Ud) 3 ml INH RQ6 PRN PRN Reason: Shortness of Breath Last Admin: 08/13/17 01:23 Dose: 3 ml Aspirin (Aspirin Chewable) 81 mg PO DAILY [facility] Last Admin: 08/14/17 09:02 Dose: 81 mg Atenolol (Tenormin) 25 mg PO DAILY [facility] Last Admin: 08/14/17 09:02 Dose: 25 mg Atorvastatin Calcium (Lipitor) 80 mg PO DAILY [facility] Last Admin: 08/14/17 09:03 Dose: 80 mg Benzocaine/Menthol (Cepacol Sore Throat) 1 nick PO Q2 PRN PRN Reason: Sore Throat Last Admin: 08/13/17 09:08 Dose: 1 nick Cholecalciferol (Vitamin D) 2,000 intlu PO DAILY [facility] Last Admin: 08/14/17 09:00 Dose: 2,000 intlu Ciprofloxacin/Dexamethasone (Ciprodex Otic) 4 drop AD BID [facility] Last Admin: 08/14/17 08:59 Dose: 4 drop Docusate Sodium (Colace) 100 mg PO BID [facility] Last Admin: 08/14/17 09:02 Dose: 100 mg Enoxaparin Sodium (Lovenox) 70 mg SC Q12 [facility] PRN Reason: Protocol Last Admin: 08/14/17 09:00 Dose: 70 mg Gabapentin (Neurontin) 600 mg PO BID [facility] Last Admin: 08/14/17 09:00 Dose: 600 mg Cefepime HCl 2 gm/ Sodium (Chloride) 100 mls @ 100 mls/hr IVPB Q8 [facility] PRN Reason: Protocol Last Admin: 08/14/17 08:59 Dose: 100 mls/hr Insulin Detemir (Levemir) 50 units SC DAILY [facility] Last Admin: 08/14/17 09:01 Dose: 50 unit Insulin Human Lispro (Humalog) 10 units SC DAILY [facility] Last Admin: 08/14/17 09:01 Dose: 10 units Isosorbide Mononitrate (Imdur) 60 mg PO DAILY [facility] Last Admin: 08/14/17 09:03 Dose: 60 mg Metformin HCl (Glucophage) 850 mg PO BIDWM [facility] Last Admin: 08/14/17 09:02 Dose: 850 mg Pantoprazole Sodium (Protonix Ec Tab) 40 mg PO DAILY [facility] Last Admin: 08/14/17 09:03 Dose: 40 mg Polyethylene Glycol (Miralax) 17 gm PO DAILY [facility] Last Admin: 08/14/17 08:59 Dose: 17 gm Sitagliptin Phosphate (Januvia) 100 mg PO DAILY [facility] Last Admin: 08/14/17 09:00 Dose: 100 mg Sodium Chloride ([place] Nasal [place]) 1 sprays SARAH TID PRN PRN Reason: Dry nasal passages Last Admin: 08/09/17 15:43 Dose: 1 spray Tramadol HCl (Ultram) 50 mg PO Q8 PRN PRN Reason: Pain, moderate (4-7) Last Admin: 08/11/17 19:35 Dose: 50 mg - Labs Labs: 08/14/17 04:17 08/14/17 04:17 - Constitutional Appears: No Acute Distress - Head Exam Additional comments: Right sided facial droop (chronic) - Respiratory Exam Respiratory Exam: Clear to Ausculation Bilateral, NORMAL BREATHING PATTERN. absent: Rhonchi, Wheezes - Cardiovascular Exam Cardiovascular Exam: REGULAR RHYTHM, +S1, +S2 - GI/Abdominal Exam GI & Abdominal Exam: Soft, Normal Bowel Sounds. 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 Mora Consult appreciated CT: Consistent with Otomastoiditis - F/U with MRI of IAC with gadolinium and ear drainage cultures - ID consult appreciated - C/W Maxapine 2gm Q8. PAtient has been afebrile overnight - Blood culture showed no growth in 24 hours - F/U with urine culture and ear drainage cultures Spoke with manager case: after workup is complete and patient is stable for discharge, [facility] will assist patient with IV antibiotics at home. Status: Acute (2) Chest pain Assessment & Plan: Cause of chest pain Unspecified possibly MSK in orgin Toponin x 3 negative. Cardio consult appreciated Perserved EF on Echo Pt not currently a candidate for invasive intervention. F/U with cardio outpatient Status: Acute (3) Diabetes mellitus Assessment & Plan: Diabetes Mellitus type II - C/W home insulin regimine. - C/W metformin and Junuvia today Status: Chronic (4) Mild intermittent asthma Assessment & Plan: W/ an acute exacerbation - Albuterol PRN ordered Status: Acute (5) DVT prophylaxis Status: Acute <Ellis Abreu - Last Filed: 08/16/17 13:25> Objective - Vital Signs/Intake and Output Vital Signs (last 24 hours): Temp Pulse Resp BP Pulse Ox 100.8 F H 86 18 111/64 93 L 08/16/17 12:10 08/16/17 12:10 08/16/17 12:10 08/16/17 12:10 08/16/17 12:10 Intake and Output: 08/16/17 08/16/17 06:59 18:59 Intake Total 500 Output Total 400 Balance 100 - Medications Medications: Current Medications Acetaminophen (Tylenol 325mg Tab) 650 mg PO QID PRN PRN Reason: Pain, moderate (4-7) Last Admin: 08/15/17 06:17 Dose: 650 mg Acetaminophen (Tylenol 325mg Tab) 650 mg PO Q4 PRN PRN Reason: Fever >100.4 F Last Admin: 08/16/17 00:47 Dose: 650 mg Al Hydrox/Mg Hydrox/Simethicone (Maalox Plus 30 Ml) 30 ml PO Q4 PRN PRN Reason: Indigestion / Heartburn Last Admin: 08/15/17 03:08 Dose: 30 ml Albuterol (Ventolin Hfa 90 Mcg/Actuation (8 G)) 1 puff INH RQ4 PRN PRN Reason: Shortness of Breath Albuterol/Ipratropium (Duoneb 3 Mg/0.5 Mg (3 Ml) Ud) 3 ml INH RQ6 PRN PRN Reason: Shortness of Breath Last Admin: 08/16/17 12:28 Dose: 3 ml Aspirin (Aspirin Chewable) 81 mg PO DAILY [facility] Last Admin: 08/16/17 09:00 Dose: 81 mg Atenolol (Tenormin) 25 mg PO DAILY [facility] Last Admin: 08/16/17 09:00 Dose: 25 mg Atorvastatin Calcium (Lipitor) 80 mg PO DAILY [facility] Last Admin: 08/16/17 09:00 Dose: 80 mg Benzocaine/Menthol (Cepacol Sore Throat) 1 nick PO Q2 PRN PRN Reason: Sore Throat Last Admin: 08/16/17 10:13 Dose: 1 nick Cholecalciferol (Vitamin D) 2,000 intlu PO DAILY [facility] Last Admin: 08/16/17 09:00 Dose: 2,000 intlu Ciprofloxacin/Dexamethasone (Ciprodex Otic) 4 drop AD BID [facility] Last Admin: 08/16/17 09:00 Dose: 4 drop Docusate Sodium (Colace) 100 mg PO BID [facility] Last Admin: 08/16/17 09:00 Dose: 100 mg Enoxaparin Sodium (Lovenox) 70 mg SC Q12 [facility] PRN Reason: Protocol Last Admin: 08/16/17 10:17 Dose: 70 mg Gabapentin (Neurontin) 600 mg PO BID [facility] Last Admin: 08/16/17 09:00 Dose: 600 mg Cefepime HCl 2 gm/ Sodium (Chloride) 100 mls @ 100 mls/hr IVPB Q8 [facility] PRN Reason: Protocol Last Admin: 08/16/17 09:00 Dose: 100 mls/hr Insulin Detemir (Levemir) 35 units SC HS [facility] Last Admin: 08/15/17 21:58 Dose: 35 units Isosorbide Mononitrate (Imdur) 60 mg PO DAILY [facility] Last Admin: 08/16/17 09:00 Dose: 60 mg Metformin HCl (Glucophage) 850 mg PO BIDWM [facility] Last Admin: 08/16/17 09:00 Dose: 850 mg Pantoprazole Sodium (Protonix Ec Tab) 40 mg PO DAILY [facility] Last Admin: 08/16/17 09:00 Dose: 40 mg Polyethylene Glycol (Miralax) 17 gm PO DAILY [facility] Last Admin: 08/16/17 10:28 Dose: Not Given Sitagliptin Phosphate (Januvia) 100 mg PO DAILY [facility] Last Admin: 08/16/17 09:00 Dose: 100 mg Sodium Chloride ([place] Nasal [place]) 1 sprays SARAH TID PRN PRN Reason: Dry nasal passages Last Admin: 08/16/17 12:21 Dose: 1 spray Tramadol HCl (Ultram) 50 mg PO Q8 PRN PRN Reason: Pain, moderate (4-7) Last Admin: 08/11/17 19:35 Dose: 50 mg - Labs Labs: 08/14/17 04:17 08/14/17 04:17 Assessment and Plan (1) Chest pain Status: Acute (2) Hypertension Status: Acute (3) Mastoiditis Status: Acute (4) Diabetes mellitus Status: Chronic - Assessment and Plan (Free Text) Plan: I was present during evaluation and discussed with Dr Vasquez re plans of care and tx Ellis Abreu M.D.
--- NOTE | 2017-08-14 14:03 | CP.PCM.PN ---
Subjective - Date & Time of Evaluation Date of Evaluation: 08/14/17 Time of Evaluation: 09:00 - Subjective Subjective: c/o hearing loss right side no drainage right facial weakness as before await MRI/ bone scan Objective - Vital Signs/Intake and Output Vital Signs (last 24 hours): Temp Pulse Resp BP Pulse Ox 98.3 F 79 18 105/66 97 08/14/17 12:00 08/14/17 12:00 08/14/17 12:00 08/14/17 12:00 08/14/17 12:00 - Medications Medications: Current Medications Acetaminophen (Tylenol 325mg Tab) 650 mg PO QID PRN PRN Reason: Pain, moderate (4-7) Acetaminophen (Tylenol 325mg Tab) 650 mg PO Q4 PRN PRN Reason: Fever >100.4 F Last Admin: 08/13/17 00:20 Dose: 650 mg Al Hydrox/Mg Hydrox/Simethicone (Maalox Plus 30 Ml) 30 ml PO Q4 PRN PRN Reason: Indigestion / Heartburn Last Admin: 08/13/17 18:07 Dose: 30 ml Albuterol (Ventolin Hfa 90 Mcg/Actuation (8 G)) 1 puff INH RQ4 PRN PRN Reason: Shortness of Breath Albuterol/Ipratropium (Duoneb 3 Mg/0.5 Mg (3 Ml) Ud) 3 ml INH RQ6 PRN PRN Reason: Shortness of Breath Last Admin: 08/13/17 01:23 Dose: 3 ml Aspirin (Aspirin Chewable) 81 mg PO DAILY [facility] [place] Last Admin: 08/14/17 09:02 Dose: 81 mg Atenolol (Tenormin) 25 mg PO DAILY [facility] [place] Last Admin: 08/14/17 09:02 Dose: 25 mg Atorvastatin Calcium (Lipitor) 80 mg PO DAILY [facility] [place] Last Admin: 08/14/17 09:03 Dose: 80 mg Benzocaine/Menthol (Cepacol Sore Throat) 1 nick PO Q2 PRN PRN Reason: Sore Throat Last Admin: 08/13/17 09:08 Dose: 1 nick Cholecalciferol (Vitamin D) 2,000 intlu PO DAILY [facility] [place] Last Admin: 08/14/17 09:00 Dose: 2,000 intlu Ciprofloxacin/Dexamethasone (Ciprodex Otic) 4 drop AD BID [facility] [place] Last Admin: 08/14/17 08:59 Dose: 4 drop Docusate Sodium (Colace) 100 mg PO BID [facility] [place] Last Admin: 08/14/17 09:02 Dose: 100 mg Enoxaparin Sodium (Lovenox) 70 mg SC Q12 [facility] PRN Reason: Protocol Last Admin: 08/14/17 09:00 Dose: 70 mg Gabapentin (Neurontin) 600 mg PO BID [facility] [place] Last Admin: 08/14/17 09:00 Dose: 600 mg Cefepime HCl 2 gm/ Sodium (Chloride) 100 mls @ 100 mls/hr IVPB Q8 [facility] PRN Reason: Protocol Last Admin: 08/14/17 08:59 Dose: 100 mls/hr Insulin Detemir (Levemir) 50 units SC DAILY [facility] [place] Last Admin: 08/14/17 09:01 Dose: 50 unit Insulin Human Lispro (Humalog) 10 units SC DAILY [facility] [place] Last Admin: 08/14/17 09:01 Dose: 10 units Isosorbide Mononitrate (Imdur) 60 mg PO DAILY [facility] [place] Last Admin: 08/14/17 09:03 Dose: 60 mg Metformin HCl (Glucophage) 850 mg PO BIDWM [facility] [place] Last Admin: 08/14/17 09:02 Dose: 850 mg Pantoprazole Sodium (Protonix Ec Tab) 40 mg PO DAILY [facility] [place] Last Admin: 08/14/17 09:03 Dose: 40 mg Polyethylene Glycol (Miralax) 17 gm PO DAILY [facility] [place] Last Admin: 08/14/17 08:59 Dose: 17 gm Sitagliptin Phosphate (Januvia) 100 mg PO DAILY [facility] [place] Last Admin: 08/14/17 09:00 Dose: 100 mg Sodium Chloride ([place] Nasal [place]) 1 sprays SARAH TID PRN PRN Reason: Dry nasal passages Last Admin: 08/09/17 15:43 Dose: 1 spray Tramadol HCl (Ultram) 50 mg PO Q8 PRN PRN Reason: Pain, moderate (4-7) Last Admin: 08/11/17 19:35 Dose: 50 mg - Labs Labs: 08/14/17 04:17 08/14/17 04:17 - Constitutional Appears: Non-toxic, Cachectic - Head Exam Head Exam: NORMOCEPHALIC - Eye Exam Eye Exam: PERRL - ENT Exam ENT Exam: Mucous Membranes Dry - Neck Exam Neck Exam: absent: Lymphadenopathy - Respiratory Exam Respiratory Exam: Decreased Breath Sounds - Cardiovascular Exam Cardiovascular Exam: REGULAR RHYTHM - GI/Abdominal Exam GI & Abdominal Exam: Distended - Rectal Exam Rectal Exam: Deferred - Exam Exam: NORMAL INSPECTION - Extremities Exam Extremities Exam: absent: Pedal Edema - Back Exam Back Exam: absent: CVA tenderness (L), CVA tenderness (R) - Neurological Exam Neurological Exam: Alert, Awake, Oriented x3 Neuro motor strength exam: Left Upper Extremity: 4, Right Upper Extremity: 4, Left Lower Extremity: 4, Right Lower Extremity: 4 Additional comments: right facial weakness - Psychiatric Exam Psychiatric exam: Depressed - Skin Skin Exam: Dry Assessment and Plan (1) DVT prophylaxis Status: Acute (2) Mastoiditis Status: Acute (3) Mild intermittent asthma Status: Acute (4) Diabetes mellitus Status: Chronic (5) Mild persistent asthma Status: Chronic - Assessment and Plan (Free Text) Assessment: cont iv rx await bone scan, MRI
[2017-08-14] MEDS ORDERED: Dextrose 50% SYRINGE Inj (50 ml) IVP ONE (17:36)
[2017-08-14] MEDS ORDERED: Dextrose 50% SYRINGE Inj (50 ml) ONE (17:38)
[2017-08-15] MEDS: Cefepime 2 GM in Sodium Chloride 0.9% 100 ML IVPB SCH ×3 (00:15→16:37)
[2017-08-15] MEDS: Benzocaine/Menthol (Cepacol) Lozenge PO PRN (00:25)
[2017-08-15] MEDS: Albuterol-Ipratrop 3 mg / 0.5 (3 ml) UD INH PRN ×3 (00:51→19:06)
[2017-08-15] MEDS: Alum-Mag Hydrox-Simethicone Susp (30 mL) PO PRN (03:08)
[2017-08-15] MEDS ORDERED: Gadodiamide 287 MG/ML VIAL (15ML) IV ONE (08:24)
[2017-08-15] MEDS: POLYETHYLENE GLYCOL 3350 17 GM/Dose PACKET PO SCH (09:00)
[2017-08-15] MEDS: Cholecalciferol 1,000 INTLU TAB PO SCH (09:00)
[2017-08-15] MEDS: Pantoprazole 40 mg EC Tab PO SCH (09:00)
[2017-08-15] MEDS: Enoxaparin 80 mg Syringe SC SCH ×2 (10:34→21:58)
[2017-08-15] MEDS: Ciprofloxacin/Dexamethasone OTIC SUSP AD SCH ×2 (10:35→16:37)
--- NOTE | 2017-08-15 18:48 | MRI ---
PROCEDURE: MRI OF THE BRAIN AND INTERNAL AUDITORY CANALS WITH AND WITHOUT CONTRAST. HISTORY: Otomastoiditis COMPARISON: Comparison made with prior contrast-enhanced CT scan of the brain dated 08/11/2017. TECHNIQUE: Multiplanar, multisequence MR images of the brain and posterior fossa were obtained with and without contrast. High-resolution posterior fossa and images through the cerebellopontine angle and internal auditory canals included: Axial 3-D fiesta, axial T1 pre-and postcontrast enhanced and coronal T1 pre-and postcontrast enhanced. 14 cc of Omniscan injected for this exam FINDINGS: IAC/CP ANGLES: INTERNAL AUDITORY CANALS: Unremarkable. CEREBELLOPONTINE ANGLES: Unremarkable. INNER EAR STRUCTURES: Unremarkable. Normally formed cochlea and semicircular canals. No signal abnormality or abnormal enhancement in the membranous labyrinth of the cochlea, vestibule or the semicircular canals. BRAINSTEM: Unremarkable. MASTOIDS: There is complete opacification of the right mastoid air complex and middle ear canal consistent with otitis media/ mastoiditis. There is no evidence of abnormal dural enhancement within the adjacent on intracranial compartment. . The adjacent the transverse and sigmoid sinuses appear patent without evidence to suggest thrombosis. OTHER: No other notable findings. BRAIN (LIMITED): Chronic appearing infarct involving the cortex and subcortical white matter left posterior temporoparietal watershed zone. Small chronic appearing infarct seen in the right anterior frontal deep white matter. Minimal diffuse/confluent chronic white matter ischemic changes are also present. Intact. Questionable few tiny cerebellar chronic ischemic changes. Moderate generalized volume loss. PARANASAL SINUSES: Minor mucosal thickening seen within the sphenoid sinus. IMPRESSION: Complete opacification of the right mastoid air complex and middle ear canal consistent with otitis media/mastoiditis. There is no evidence of abnormal dural enhancement within the adjacent intracranial compartment. 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 There also appears to be chronic infarct in the right frontal deep white matter. Moderate generalized volume loss.
[2017-08-15] MEDS: Insulin Detemir 100 Units/ml Inj SC SCH (21:58)
[2017-08-16] MEDS: Cefepime 2 GM in Sodium Chloride 0.9% 100 ML IVPB SCH ×3 (00:50→17:00)
[2017-08-16] MEDS: Albuterol-Ipratrop 3 mg / 0.5 (3 ml) UD INH PRN ×2 (01:28→12:28)
[2017-08-16] MEDS: Benzocaine/Menthol (Cepacol) Lozenge PO PRN ×2 (01:43→10:13)
[2017-08-16] MEDS: Pantoprazole 40 mg EC Tab PO SCH (09:00)
[2017-08-16] MEDS: Cholecalciferol 1,000 INTLU TAB PO SCH (09:00)
[2017-08-16] MEDS: POLYETHYLENE GLYCOL 3350 17 GM/Dose PACKET PO SCH ×2 (09:00→10:28)
[2017-08-16] MEDS: Ciprofloxacin/Dexamethasone OTIC SUSP AD SCH ×2 (09:00→17:03)
[2017-08-16] MEDS: Enoxaparin 80 mg Syringe SC SCH ×2 (10:17→20:41)
[2017-08-16] MEDS: Nasal Spray(Ocean spray) NAS PRN (12:21)
--- NOTE | 2017-08-16 13:28 | CP.PCM.PN ---
Subjective - Date & Time of Evaluation Date of Evaluation: 08/15/17 Time of Evaluation: 11:00 - Subjective Subjective: Noted some cough Has no fever Has slight SOB No chestpain Objective - Vital Signs/Intake and Output Vital Signs (last 24 hours): Temp Pulse Resp BP Pulse Ox 100.8 F H 86 18 111/64 93 L 08/16/17 12:10 08/16/17 12:10 08/16/17 12:10 08/16/17 12:10 08/16/17 12:10 Intake and Output: 08/16/17 08/16/17 06:59 18:59 Intake Total 500 Output Total 400 Balance 100 - Medications Medications: Current Medications Acetaminophen (Tylenol 325mg Tab) 650 mg PO QID PRN PRN Reason: Pain, moderate (4-7) Last Admin: 08/15/17 06:17 Dose: 650 mg Acetaminophen (Tylenol 325mg Tab) 650 mg PO Q4 PRN PRN Reason: Fever >100.4 F Last Admin: 08/16/17 00:47 Dose: 650 mg Al Hydrox/Mg Hydrox/Simethicone (Maalox Plus 30 Ml) 30 ml PO Q4 PRN PRN Reason: Indigestion / Heartburn Last Admin: 08/15/17 03:08 Dose: 30 ml Albuterol (Ventolin Hfa 90 Mcg/Actuation (8 G)) 1 puff INH RQ4 PRN PRN Reason: Shortness of Breath Albuterol/Ipratropium (Duoneb 3 Mg/0.5 Mg (3 Ml) Ud) 3 ml INH RQ6 PRN PRN Reason: Shortness of Breath Last Admin: 08/16/17 12:28 Dose: 3 ml Aspirin (Aspirin Chewable) 81 mg PO DAILY [facility] Last Admin: 08/16/17 09:00 Dose: 81 mg Atenolol (Tenormin) 25 mg PO DAILY [facility] Last Admin: 08/16/17 09:00 Dose: 25 mg Atorvastatin Calcium (Lipitor) 80 mg PO DAILY [facility] Last Admin: 08/16/17 09:00 Dose: 80 mg Benzocaine/Menthol (Cepacol Sore Throat) 1 nick PO Q2 PRN PRN Reason: Sore Throat Last Admin: 08/16/17 10:13 Dose: 1 nick Cholecalciferol (Vitamin D) 2,000 intlu PO DAILY [facility] Last Admin: 08/16/17 09:00 Dose: 2,000 intlu Ciprofloxacin/Dexamethasone (Ciprodex Otic) 4 drop AD BID [facility] Last Admin: 08/16/17 09:00 Dose: 4 drop Docusate Sodium (Colace) 100 mg PO BID [facility] Last Admin: 08/16/17 09:00 Dose: 100 mg Enoxaparin Sodium (Lovenox) 70 mg SC Q12 [facility] PRN Reason: Protocol Last Admin: 08/16/17 10:17 Dose: 70 mg Gabapentin (Neurontin) 600 mg PO BID [facility] Last Admin: 08/16/17 09:00 Dose: 600 mg Cefepime HCl 2 gm/ Sodium (Chloride) 100 mls @ 100 mls/hr IVPB Q8 [facility] PRN Reason: Protocol Last Admin: 08/16/17 09:00 Dose: 100 mls/hr Insulin Detemir (Levemir) 35 units SC [facility] Last Admin: 08/15/17 21:58 Dose: 35 units Isosorbide Mononitrate (Imdur) 60 mg PO DAILY [facility] Last Admin: 08/16/17 09:00 Dose: 60 mg Metformin HCl (Glucophage) 850 mg PO BIDWM [facility] Last Admin: 08/16/17 09:00 Dose: 850 mg Pantoprazole Sodium (Protonix Ec Tab) 40 mg PO DAILY [facility] Last Admin: 08/16/17 09:00 Dose: 40 mg Polyethylene Glycol (Miralax) 17 gm PO DAILY [facility] Last Admin: 08/16/17 10:28 Dose: Not Given Sitagliptin Phosphate (Januvia) 100 mg PO DAILY [facility] Last Admin: 08/16/17 09:00 Dose: 100 mg Sodium Chloride (Normal Nasal [place]) 1 sprays SARAH TID PRN PRN Reason: Dry nasal passages Last Admin: 08/16/17 12:21 Dose: 1 spray Tramadol HCl (Ultram) 50 mg PO Q8 PRN PRN Reason: Pain, moderate (4-7) Last Admin: 08/11/17 19:35 Dose: 50 mg - Labs Labs: 08/14/17 04:17 08/14/17 04:17 - Head Exam Head Exam: NORMAL INSPECTION - Eye Exam Eye Exam: Normal appearance - ENT Exam ENT Exam: Mucous Membranes Moist - Respiratory Exam Respiratory Exam: Decreased Breath Sounds, Rhonchi - Cardiovascular Exam Cardiovascular Exam: REGULAR RHYTHM Assessment and Plan (1) Chest pain Status: Acute (2) Hypertension Status: Acute (3) Mastoiditis Status: Acute (4) Diabetes mellitus Status: Chronic (5) COPD (chronic obstructive pulmonary disease) Status: Acute - Assessment and Plan (Free Text) Plan: Cont meds Cont neb tx follow up cbc cmp cough meds.
--- NOTE | 2017-08-16 13:30 | CP.PCM.PN ---
Subjective - Date & Time of Evaluation Date of Evaluation: 08/16/17 Time of Evaluation: 13:28 - Subjective Subjective: Patient has increase cough and SOB Noted low grade fever since this morning Currently on three antibiotics Has no chest pain Objective - Vital Signs/Intake and Output Vital Signs (last 24 hours): Temp Pulse Resp BP Pulse Ox 100.8 F H 86 18 111/64 93 L 08/16/17 12:10 08/16/17 12:10 08/16/17 12:10 08/16/17 12:10 08/16/17 12:10 Intake and Output: 08/16/17 08/16/17 06:59 18:59 Intake Total 500 Output Total 400 Balance 100 - Medications Medications: Current Medications Acetaminophen (Tylenol 325mg Tab) 650 mg PO QID PRN PRN Reason: Pain, moderate (4-7) Last Admin: 08/15/17 06:17 Dose: 650 mg Acetaminophen (Tylenol 325mg Tab) 650 mg PO Q4 PRN PRN Reason: Fever >100.4 F Last Admin: 08/16/17 00:47 Dose: 650 mg Al Hydrox/Mg Hydrox/Simethicone (Maalox Plus 30 Ml) 30 ml PO Q4 PRN PRN Reason: Indigestion / Heartburn Last Admin: 08/15/17 03:08 Dose: 30 ml Albuterol (Ventolin Hfa 90 Mcg/Actuation (8 G)) 1 puff INH RQ4 PRN PRN Reason: Shortness of Breath Albuterol/Ipratropium (Duoneb 3 Mg/0.5 Mg (3 Ml) Ud) 3 ml INH RQ6 PRN PRN Reason: Shortness of Breath Last Admin: 08/16/17 12:28 Dose: 3 ml Aspirin (Aspirin Chewable) 81 mg PO DAILY [facility] Last Admin: 08/16/17 09:00 Dose: 81 mg Atenolol (Tenormin) 25 mg PO DAILY [facility] Last Admin: 08/16/17 09:00 Dose: 25 mg Atorvastatin Calcium (Lipitor) 80 mg PO DAILY [facility] Last Admin: 08/16/17 09:00 Dose: 80 mg Benzocaine/Menthol (Cepacol Sore Throat) 1 nick PO Q2 PRN PRN Reason: Sore Throat Last Admin: 08/16/17 10:13 Dose: 1 nick Cholecalciferol (Vitamin D) 2,000 intlu PO DAILY [facility] Last Admin: 08/16/17 09:00 Dose: 2,000 intlu Ciprofloxacin/Dexamethasone (Ciprodex Otic) 4 drop AD BID [facility] Last Admin: 08/16/17 09:00 Dose: 4 drop Docusate Sodium (Colace) 100 mg PO BID [facility] Last Admin: 08/16/17 09:00 Dose: 100 mg Enoxaparin Sodium (Lovenox) 70 mg SC Q12 [facility] PRN Reason: Protocol Last Admin: 08/16/17 10:17 Dose: 70 mg Gabapentin (Neurontin) 600 mg PO BID [facility] Last Admin: 08/16/17 09:00 Dose: 600 mg Cefepime HCl 2 gm/ Sodium (Chloride) 100 mls @ 100 mls/hr IVPB Q8 [facility] PRN Reason: Protocol Last Admin: 08/16/17 09:00 Dose: 100 mls/hr Methylprednisolone 20 mg/ (Sodium Chloride) 50 mls @ 100 mls/hr IV Q12 [facility] Insulin Detemir (Levemir) 35 units SC [facility] Last Admin: 08/15/17 21:58 Dose: 35 units Isosorbide Mononitrate (Imdur) 60 mg PO DAILY [facility] Last Admin: 08/16/17 09:00 Dose: 60 mg Metformin HCl (Glucophage) 850 mg PO BIDWM [facility] Last Admin: 08/16/17 09:00 Dose: 850 mg Pantoprazole Sodium (Protonix Ec Tab) 40 mg PO DAILY [facility] Last Admin: 08/16/17 09:00 Dose: 40 mg Polyethylene Glycol (Miralax) 17 gm PO DAILY [facility] Last Admin: 08/16/17 10:28 Dose: Not Given Sitagliptin Phosphate (Januvia) 100 mg PO DAILY [facility] Last Admin: 08/16/17 09:00 Dose: 100 mg Sodium Chloride ([place] Nasal [place]) 1 sprays SARAH TID PRN PRN Reason: Dry nasal passages Last Admin: 08/16/17 12:21 Dose: 1 spray Tramadol HCl (Ultram) 50 mg PO Q8 PRN PRN Reason: Pain, moderate (4-7) Last Admin: 08/11/17 19:35 Dose: 50 mg - Labs Labs: 08/14/17 04:17 08/14/17 04:17 - Head Exam Head Exam: NORMAL INSPECTION - Eye Exam Eye Exam: Normal appearance - ENT Exam ENT Exam: Mucous Membranes Moist - Respiratory Exam Respiratory Exam: Clear to Ausculation Bilateral - Cardiovascular Exam Cardiovascular Exam: REGULAR RHYTHM - GI/Abdominal Exam GI & Abdominal Exam: Normal Bowel Sounds - Neurological Exam Neurological Exam: Awake, Oriented x3 Assessment and Plan (1) Chest pain Status: Acute (2) Hypertension Status: Acute (3) Mastoiditis Status: Acute (4) Diabetes mellitus Status: Chronic (5) COPD (chronic obstructive pulmonary disease) Status: Acute - Assessment and Plan (Free Text) Plan: Cont neb tx check cbc cmp in am CXR today neb tx start low dose solumedrol.
--- NOTE | 2017-08-16 13:38 | CP.PCM.PN ---
Subjective - Date & Time of Evaluation Date of Evaluation: 08/16/17 Time of Evaluation: 09:00 - Subjective Subjective: fever again recultured [facility] over 1 month vanco added Objective - Vital Signs/Intake and Output Vital Signs (last 24 hours): Temp Pulse Resp BP Pulse Ox 100.8 F H 86 18 111/64 93 L 08/16/17 12:10 08/16/17 12:10 08/16/17 12:10 08/16/17 12:10 08/16/17 12:10 Intake and Output: 08/16/17 08/16/17 06:59 18:59 Intake Total 500 Output Total 400 Balance 100 - Medications Medications: Current Medications Acetaminophen (Tylenol 325mg Tab) 650 mg PO QID PRN PRN Reason: Pain, moderate (4-7) Last Admin: 08/15/17 06:17 Dose: 650 mg Acetaminophen (Tylenol 325mg Tab) 650 mg PO Q4 PRN PRN Reason: Fever >100.4 F Last Admin: 08/16/17 00:47 Dose: 650 mg Al Hydrox/Mg Hydrox/Simethicone (Maalox Plus 30 Ml) 30 ml PO Q4 PRN PRN Reason: Indigestion / Heartburn Last Admin: 08/15/17 03:08 Dose: 30 ml Albuterol (Ventolin Hfa 90 Mcg/Actuation (8 G)) 1 puff INH RQ4 PRN PRN Reason: Shortness of Breath Albuterol/Ipratropium (Duoneb 3 Mg/0.5 Mg (3 Ml) Ud) 3 ml INH RQ6 PRN PRN Reason: Shortness of Breath Last Admin: 08/16/17 12:28 Dose: 3 ml Aspirin (Aspirin Chewable) 81 mg PO DAILY [facility] Last Admin: 08/16/17 09:00 Dose: 81 mg Atenolol (Tenormin) 25 mg PO DAILY [facility] Last Admin: 08/16/17 09:00 Dose: 25 mg Atorvastatin Calcium (Lipitor) 80 mg PO DAILY [facility] Last Admin: 08/16/17 09:00 Dose: 80 mg Benzocaine/Menthol (Cepacol Sore Throat) 1 nick PO Q2 PRN PRN Reason: Sore Throat Last Admin: 08/16/17 10:13 Dose: 1 nick Cholecalciferol (Vitamin D) 2,000 intlu PO DAILY [facility] Last Admin: 08/16/17 09:00 Dose: 2,000 intlu Ciprofloxacin/Dexamethasone (Ciprodex Otic) 4 drop AD BID [facility] Last Admin: 08/16/17 09:00 Dose: 4 drop Docusate Sodium (Colace) 100 mg PO BID [facility] Last Admin: 08/16/17 09:00 Dose: 100 mg Enoxaparin Sodium (Lovenox) 70 mg SC Q12 [facility] PRN Reason: Protocol Last Admin: 08/16/17 10:17 Dose: 70 mg Gabapentin (Neurontin) 600 mg PO BID [facility] Last Admin: 08/16/17 09:00 Dose: 600 mg Cefepime HCl 2 gm/ Sodium (Chloride) 100 mls @ 100 mls/hr IVPB Q8 [facility] PRN Reason: Protocol Last Admin: 08/16/17 09:00 Dose: 100 mls/hr Insulin Detemir (Levemir) 35 units SC HS [facility] Last Admin: 08/15/17 21:58 Dose: 35 units Isosorbide Mononitrate (Imdur) 60 mg PO DAILY [facility] Last Admin: 08/16/17 09:00 Dose: 60 mg Metformin HCl (Glucophage) 850 mg PO BIDWM [facility] Last Admin: 08/16/17 09:00 Dose: 850 mg Methylprednisolone (Solu-Medrol) 20 mg IVP Q12 [facility] Pantoprazole Sodium (Protonix Ec Tab) 40 mg PO DAILY [facility] Last Admin: 08/16/17 09:00 Dose: 40 mg Polyethylene Glycol (Miralax) 17 gm PO DAILY [facility] Last Admin: 08/16/17 10:28 Dose: Not Given Sitagliptin Phosphate (Januvia) 100 mg PO DAILY [facility] Last Admin: 08/16/17 09:00 Dose: 100 mg Sodium Chloride ([place] Nasal [place]) 1 sprays SARAH TID PRN PRN Reason: Dry nasal passages Last Admin: 08/16/17 12:21 Dose: 1 spray Tramadol HCl (Ultram) 50 mg PO Q8 PRN PRN Reason: Pain, moderate (4-7) Last Admin: 08/11/17 19:35 Dose: 50 mg - Labs Labs: 08/14/17 04:17 08/14/17 04:17 - Constitutional Appears: Non-toxic, Cachectic, Chronically Ill - Head Exam Head Exam: NORMOCEPHALIC - Eye Exam Eye Exam: PERRL - ENT Exam ENT Exam: Mucous Membranes Dry - Neck Exam Neck Exam: absent: Lymphadenopathy - Respiratory Exam Respiratory Exam: Decreased Breath Sounds - Cardiovascular Exam Cardiovascular Exam: REGULAR RHYTHM - GI/Abdominal Exam GI & Abdominal Exam: Distended, Soft - Rectal Exam Rectal Exam: Deferred - Exam Exam: NORMAL INSPECTION - Extremities Exam Extremities Exam: absent: Pedal Edema - Back Exam Back Exam: absent: CVA tenderness (L), CVA tenderness (R) - Neurological Exam Neurological Exam: Alert, Awake, Oriented x3 Additional comments: right facial weakness + - Psychiatric Exam Psychiatric exam: Normal Mood - Skin Skin Exam: Dry Assessment and Plan (1) DVT prophylaxis Status: Acute (2) Mastoiditis Status: Acute (3) Mild intermittent asthma Status: Acute (4) Diabetes mellitus Status: Chronic (5) Mild persistent asthma Status: Chronic
[2017-08-16] MEDS: MethylPREDNISolone 40 mg Vial IVP SCH ×2 (14:46→20:43)
--- NOTE | 2017-08-16 15:14 | RAD ---
HISTORY: cough and fever COMPARISON: 08/12/2017 FINDINGS: LUNGS: Linear opacity at right base may reflect subsegmental atelectasis. No infiltrate. PLEURA: No significant pleural effusion identified, no pneumothorax apparent. CARDIOVASCULAR: Normal heart size. No congestive change. Left PICC catheter terminates in the region of superior vena cava, unchanged. OSSEOUS STRUCTURES: No significant abnormalities. VISUALIZED UPPER ABDOMEN: Normal. OTHER FINDINGS: None. IMPRESSION: Suspect subsegmental atelectasis at right lung base. Otherwise unremarkable.
[2017-08-16] MEDS ORDERED: methylPREDNISolone 20 MG in Sodium Chloride 0.9% 50 ML IV SCH (21:00)
[2017-08-16] MEDS: Insulin Detemir 100 Units/ml Inj SC SCH (22:23)
[2017-08-17] MEDS: Cefepime 2 GM in Sodium Chloride 0.9% 100 ML IVPB SCH ×3 (01:02→16:43)
[2017-08-17] MEDS: Benzocaine/Menthol (Cepacol) Lozenge PO PRN (01:03)
[2017-08-17] MEDS: Albuterol-Ipratrop 3 mg / 0.5 (3 ml) UD INH PRN (01:41)
[2017-08-17] MEDS ORDERED: Sodium Chloride 3% for Inhalation 4 ML VIAL.NEB IH PRN (08:14)
[2017-08-17] MEDS: Alum-Mag Hydrox-Simethicone Susp (30 mL) PO PRN (08:24)
[2017-08-17] MEDS: POLYETHYLENE GLYCOL 3350 17 GM/Dose PACKET PO SCH (08:25)
[2017-08-17] MEDS: Pantoprazole 40 mg EC Tab PO SCH (08:25)
[2017-08-17] MEDS: Ciprofloxacin/Dexamethasone OTIC SUSP AD SCH ×2 (08:26→16:44)
[2017-08-17] MEDS: Enoxaparin 80 mg Syringe SC SCH ×2 (08:26→20:21)
[2017-08-17] MEDS: Cholecalciferol 1,000 INTLU TAB PO SCH (08:29)
[2017-08-17] MEDS: MethylPREDNISolone 40 mg Vial IVP SCH ×2 (08:29→20:17)
[2017-08-17] MEDS: Albuterol-Ipratrop 3 mg / 0.5 (3 ml) UD INH SCH ×6 (08:45→23:23)
[2017-08-17 08:51] LABS: HEMOGLOBIN 9.8 g/dL (12.0-18.0); MEAN CORPUSCULAR HEMOGLOBIN 25.6 pg (27.0-31.0); MEAN CORPUSCULAR HGB CONC 32.5 g/dL (33.0-37.0); RBC 3.83 Mil/uL (4.40-5.90); RED CELL DISTRIBUTION WIDTH 17.9 % (11.5-14.5)
[2017-08-17 09:08] LABS: BLOOD UREA NITROGEN 14 mg/dl (9-20); CALCIUM 9.2 mg/dL (8.4-10.2); GFR AFRICAN-AMERICAN > 60; GFR NON-AFRICAN AMERICAN > 60
--- NOTE | 2017-08-17 14:34 | CT ---
PROCEDURE: CT scan chest dated 06/16/2018. HISTORY: Fever and cough. COMPARISON: Comparison made with prior chest radiograph dated 08/12/2017 TECHNIQUE: Contiguous axial images were obtained through the chest without intravenous contrast enhancement. Sagittal and coronal reconstructions were performed. Radiation dose (DLP): 539.78 mGy-cm. This CT exam was performed using one or more of the following dose reduction techniques: Automated exposure control, adjustment of the mA and/or kV according to patient size, and/or use of iterative reconstruction technique. FINDINGS: In situ left-sided PICC line with tip distal SVC near the RA junction. LUNGS: Some minor scarring/atelectasis seen in the right lung base middle lobe. The localized areas of coarsened interstitial like changes seen in the left lingular region and left retrocardiac region which may represent localized interstitial inflammation/pneumonitis. There is also a small somewhat lobular translucent appearing nodular opacity in the left lung bases best seen on axial image number [id number]. Lung heart size jones are otherwise clear. . MEDIASTINUM: Heart size is within range of normal. No significant pericardial effusion. Ascending thoracic aorta measures approximately 3.62 cm and descending thoracic aorta measures approximately 2.5 cm. Pulmonary trunk measures approximately 3.4 cm. . There is an approximately 15 mm of precarinal lymph node. Density soft tissue mass density within the subcarinal region consistent with enlarged/adenopathy Central airways are midline patent. No large central endoluminal lesions are identified. There is a small hiatal hernia with slight wall thickening of the distal esophagus likely due to protrusion of gastric mucosa. Possibility of esophagitis not excluded. PLEURA: No evidence of effusion or pneumothorax. BONES: Mild multilevel degenerative spondylosis of the thoracic spine. There are no acute compression fractures no retropulsed fragments. UPPER ABDOMEN: Grossly unremarkable. OTHER FINDINGS: None. Adenopathy. On calcified atherosclerotic plaque seen arising from the origin extending into the proximal SMA. There appears to be at least 50 percent diameter stenosis of so far as can be determined on this limited study. . IMPRESSION: Minor bibasilar atelectasis/scarring changes. There are also of localized increased coarsened interstitial changes in the left lung base (retrocardiac region as well as lingular region) ; rule out mild post nonspecific postinflammatory changes/pneumonitis. Small to medium-sized precarinal lymph node. Enlarged subcarinal lymphadenopathy. Atherosclerotic plaque at the origin of the SMA resulting in approximately 50 percent diameter stenosis.
[2017-08-17] MEDS: Acetylcysteine 10% 30 ML IH SCH (19:26)
[2017-08-17] MEDS: Insulin Detemir 100 Units/ml Inj SC SCH (22:39)
--- NOTE | 2017-08-17 22:59 | CP.PCM.PN ---
Subjective - Date & Time of Evaluation Date of Evaluation: 08/17/17 Time of Evaluation: 10:10 - Subjective Subjective: Patient continues to have productive cough Has low grade fever over the weekend. Has no chest pain or SOB CXR showed atelectasis Objective - Vital Signs/Intake and Output Vital Signs (last 24 hours): Temp Pulse Resp BP Pulse Ox 98.2 F 95 H 18 117/81 94 L 08/17/17 20:16 08/17/17 21:00 08/17/17 20:16 08/17/17 21:00 08/17/17 20:16 Intake and Output: 08/17/17 08/18/17 18:59 06:59 Intake Total 600 Balance 600 - Medications Medications: Current Medications Acetaminophen (Tylenol 325mg Tab) 650 mg PO QID PRN PRN Reason: Pain, moderate (4-7) Last Admin: 08/17/17 20:19 Dose: 650 mg Acetaminophen (Tylenol 325mg Tab) 650 mg PO Q4 PRN PRN Reason: Fever >100.4 F Last Admin: 08/16/17 14:45 Dose: 650 mg Acetylcysteine (Mucomyst 10% 30 Ml) 3 ml IH RTID [facility] Last Admin: 08/17/17 19:26 Dose: Not Given Al Hydrox/Mg Hydrox/Simethicone (Maalox Plus 30 Ml) 30 ml PO Q4 PRN PRN Reason: Indigestion / Heartburn Last Admin: 08/17/17 08:24 Dose: 30 ml Albuterol/Ipratropium (Duoneb 3 Mg/0.5 Mg (3 Ml) Ud) 3 ml INH RQ4 [facility] Last Admin: 08/17/17 19:02 Dose: 3 ml Aspirin (Aspirin Chewable) 81 mg PO DAILY [facility] Last Admin: 08/17/17 08:25 Dose: 81 mg Atenolol (Tenormin) 25 mg PO DAILY [facility] Last Admin: 08/17/17 08:29 Dose: 25 mg Atorvastatin Calcium (Lipitor) 80 mg PO DAILY [facility] Last Admin: 08/17/17 08:27 Dose: 80 mg Benzocaine/Menthol (Cepacol Sore Throat) 1 nick PO Q2 PRN PRN Reason: Sore Throat Last Admin: 08/17/17 01:03 Dose: 1 nick Cholecalciferol (Vitamin D) 2,000 intlu PO DAILY [facility] Last Admin: 08/17/17 08:29 Dose: 2,000 intlu Ciprofloxacin/Dexamethasone (Ciprodex Otic) 4 drop AD BID [facility] Last Admin: 08/17/17 16:44 Dose: 4 drop Docusate Sodium (Colace) 100 mg PO BID [facility] Last Admin: 08/17/17 16:45 Dose: 100 mg Enoxaparin Sodium (Lovenox) 70 mg SC Q12 JUANA PRN Reason: Protocol Last Admin: 08/17/17 20:21 Dose: 70 mg Gabapentin (Neurontin) 600 mg PO BID [facility] Last Admin: 08/17/17 16:45 Dose: 600 mg Cefepime HCl 2 gm/ Sodium (Chloride) 100 mls @ 100 mls/hr IVPB Q8 JUANA PRN Reason: Protocol Last Admin: 08/17/17 16:43 Dose: 100 mls/hr Vancomycin HCl 750 mg/ Sodium (Chloride) 250 mls @ 250 mls/hr IVPB Q12H [facility]UANA PRN Reason: Protocol Last Admin: 08/17/17 12:56 Dose: 250 mls/hr Insulin Detemir (Levemir) 35 units SC HS [facility] Last Admin: 08/17/17 22:39 Dose: 35 units Isosorbide Mononitrate (Imdur) 60 mg PO DAILY [facility] Last Admin: 08/17/17 08:25 Dose: 60 mg Metformin HCl (Glucophage) 850 mg PO BIDWM [facility] Last Admin: 08/17/17 17:24 Dose: 850 mg Methylprednisolone (Solu-Medrol) 20 mg IVP Q12 [facility] Last Admin: 08/17/17 20:17 Dose: 20 mg Pantoprazole Sodium (Protonix Ec Tab) 40 mg PO DAILY [facility] Last Admin: 08/17/17 08:25 Dose: 40 mg Polyethylene Glycol (Miralax) 17 gm PO DAILY [facility] Last Admin: 08/17/17 08:25 Dose: Not Given Sitagliptin Phosphate (Januvia) 100 mg PO DAILY [facility] Last Admin: 08/17/17 08:26 Dose: 100 mg Sodium Chloride ([place] Nasal [place]) 1 sprays SARAH TID PRN PRN Reason: Dry nasal passages Last Admin: 08/16/17 12:21 Dose: 1 spray - Labs Labs: 08/17/17 08:42 08/17/17 08:42 - Head Exam Head Exam: NORMAL INSPECTION - Eye Exam Eye Exam: Normal appearance - Respiratory Exam Respiratory Exam: Rhonchi, Wheezes - Cardiovascular Exam Cardiovascular Exam: REGULAR RHYTHM - GI/Abdominal Exam GI & Abdominal Exam: Normal Bowel Sounds - Neurological Exam Neurological Exam: Awake, Oriented x3 Assessment and Plan (1) Chest pain Status: Acute (2) Hypertension Status: Acute (3) Mastoiditis Status: Acute (4) Diabetes mellitus Status: Chronic (5) COPD (chronic obstructive pulmonary disease) Status: Acute (6) Bronchitis Status: Acute - Assessment and Plan (Free Text) Plan: Cont IV antibiotics neb tx send for chest CT cont meds.
[2017-08-18] MEDS: Cefepime 2 GM in Sodium Chloride 0.9% 100 ML IVPB SCH ×3 (00:22→16:24)
[2017-08-18] MEDS: Albuterol-Ipratrop 3 mg / 0.5 (3 ml) UD INH SCH ×6 (04:29→23:47)
[2017-08-18] MEDS: Acetylcysteine 10% 30 ML IH SCH ×3 (07:20→19:33)
[2017-08-18] MEDS: POLYETHYLENE GLYCOL 3350 17 GM/Dose PACKET PO SCH (10:02)
[2017-08-18] MEDS: MethylPREDNISolone 40 mg Vial IVP SCH ×2 (10:08→21:22)
[2017-08-18] MEDS: Ciprofloxacin/Dexamethasone OTIC SUSP AD SCH ×2 (10:09→16:25)
[2017-08-18] MEDS: Cholecalciferol 1,000 INTLU TAB PO SCH (10:11)
[2017-08-18] MEDS: Pantoprazole 40 mg EC Tab PO SCH (10:11)
[2017-08-18] MEDS: Enoxaparin 80 mg Syringe SC SCH ×2 (10:11→21:22)
--- NOTE | 2017-08-18 12:02 | CP.PCM.PN ---
Subjective - Date & Time of Evaluation Date of Evaluation: 08/18/17 Time of Evaluation: 08:00 - Subjective Subjective: t max down iv rx in progress will need 6-8 weeks iv rx ent re-eval pending Objective - Vital Signs/Intake and Output Vital Signs (last 24 hours): Temp Pulse Resp BP Pulse Ox 97.7 F 89 18 107/63 96 08/18/17 08:00 08/18/17 10:10 08/18/17 08:00 08/18/17 10:10 08/18/17 08:00 - Medications Medications: Current Medications Acetaminophen (Tylenol 325mg Tab) 650 mg PO QID PRN PRN Reason: Pain, moderate (4-7) Last Admin: 08/17/17 20:19 Dose: 650 mg Acetaminophen (Tylenol 325mg Tab) 650 mg PO Q4 PRN PRN Reason: Fever >100.4 F Last Admin: 08/16/17 14:45 Dose: 650 mg Acetylcysteine (Mucomyst 10% 30 Ml) 3 ml IH RTID [facility] Last Admin: 08/18/17 07:20 Dose: Not Given Al Hydrox/Mg Hydrox/Simethicone (Maalox Plus 30 Ml) 30 ml PO Q4 PRN PRN Reason: Indigestion / Heartburn Last Admin: 08/17/17 08:24 Dose: 30 ml Albuterol/Ipratropium (Duoneb 3 Mg/0.5 Mg (3 Ml) Ud) 3 ml INH RQ4 [facility] Last Admin: 08/18/17 07:18 Dose: 3 ml Aspirin (Aspirin Chewable) 81 mg PO DAILY [facility] Last Admin: 08/18/17 10:10 Dose: 81 mg Atenolol (Tenormin) 25 mg PO DAILY [facility] Last Admin: 08/18/17 10:10 Dose: 25 mg Atorvastatin Calcium (Lipitor) 80 mg PO DAILY [facility] Last Admin: 08/18/17 10:12 Dose: 80 mg Benzocaine/Menthol (Cepacol Sore Throat) 1 nick PO Q2 PRN PRN Reason: Sore Throat Last Admin: 08/17/17 01:03 Dose: 1 nick Cholecalciferol (Vitamin D) 2,000 intlu PO DAILY [facility] Last Admin: 08/18/17 10:11 Dose: 2,000 intlu Ciprofloxacin/Dexamethasone (Ciprodex Otic) 4 drop AD BID [facility] Last Admin: 08/18/17 10:09 Dose: 4 drop Docusate Sodium (Colace) 100 mg PO BID [facility] Last Admin: 08/18/17 10:09 Dose: 100 mg Enoxaparin Sodium (Lovenox) 70 mg SC Q12 JUANA PRN Reason: Protocol Last Admin: 08/18/17 10:11 Dose: 70 mg Gabapentin (Neurontin) 600 mg PO BID [facility] Last Admin: 08/18/17 10:10 Dose: 600 mg Cefepime HCl 2 gm/ Sodium (Chloride) 100 mls @ 100 mls/hr IVPB Q8 JUANA PRN Reason: Protocol Last Admin: 08/18/17 10:08 Dose: 100 mls/hr Vancomycin HCl 750 mg/ Sodium (Chloride) 250 mls @ 250 mls/hr IVPB Q12H JUANA PRN Reason: Protocol Last Admin: 08/18/17 02:05 Dose: 250 mls/hr Insulin Detemir (Levemir) 35 units SC HS [facility] Last Admin: 08/17/17 22:39 Dose: 35 units Isosorbide Mononitrate (Imdur) 60 mg PO DAILY [facility] Last Admin: 08/18/17 10:10 Dose: 60 mg Metformin HCl (Glucophage) 850 mg PO BIDWM [facility] Last Admin: 08/18/17 10:10 Dose: 850 mg Methylprednisolone (Solu-Medrol) 20 mg IVP Q12 [facility] Last Admin: 08/18/17 10:08 Dose: 20 mg Pantoprazole Sodium (Protonix Ec Tab) 40 mg PO DAILY [facility] Last Admin: 08/18/17 10:11 Dose: 40 mg Polyethylene Glycol (Miralax) 17 gm PO DAILY [facility] Last Admin: 08/18/17 10:02 Dose: Not Given Sitagliptin Phosphate (Januvia) 100 mg PO DAILY [facility] Last Admin: 08/18/17 10:09 Dose: 100 mg Sodium Chloride ([place] Nasal [place]) 1 sprays SARAH TID PRN PRN Reason: Dry nasal passages Last Admin: 08/16/17 12:21 Dose: 1 spray - Labs Labs: 08/17/17 08:42 08/17/17 08:42 - Constitutional Appears: Non-toxic, Chronically Ill - Head Exam Head Exam: NORMOCEPHALIC - Eye Exam Eye Exam: PERRL. absent: Scleral icterus - ENT Exam ENT Exam: Mucous Membranes Dry - Neck Exam Neck Exam: absent: Lymphadenopathy - Respiratory Exam Respiratory Exam: Decreased Breath Sounds - Cardiovascular Exam Cardiovascular Exam: REGULAR RHYTHM - GI/Abdominal Exam GI & Abdominal Exam: Distended, Soft - Rectal Exam Rectal Exam: Deferred - Exam Exam: NORMAL INSPECTION - Extremities Exam Extremities Exam: absent: Pedal Edema - Back Exam Back Exam: absent: CVA tenderness (L), CVA tenderness (R) - Neurological Exam Neurological Exam: Alert, Awake Additional comments: facial weakness right side - Psychiatric Exam Psychiatric exam: Depressed - Skin Skin Exam: Dry Assessment and Plan (1) DVT prophylaxis Status: Acute (2) Mastoiditis Status: Acute (3) Mild intermittent asthma Status: Acute (4) Diabetes mellitus Status: Chronic (5) Mild persistent asthma Status: Chronic - Assessment and Plan (Free Text) Assessment: cont iv vanco/ cefepime
--- NOTE | 2017-08-18 12:35 | CP.PCM.PN ---
Subjective - Date & Time of Evaluation Date of Evaluation: 08/18/17 Time of Evaluation: 12:33 - Subjective Subjective: Patient was seen at bedside has remained afebrile overnight, continues to have some cough Denies chest pain , SOB, nausea or vomiting - Chest CT was done yesterday shows findings consistent with pneumonitis Objective - Vital Signs/Intake and Output Vital Signs (last 24 hours): Temp Pulse Resp BP Pulse Ox 98.3 F 83 18 110/73 97 08/18/17 12:00 08/18/17 12:00 08/18/17 12:00 08/18/17 12:00 08/18/17 12:00 - Medications Medications: Current Medications Acetaminophen (Tylenol 325mg Tab) 650 mg PO QID PRN PRN Reason: Pain, moderate (4-7) Last Admin: 08/17/17 20:19 Dose: 650 mg Acetaminophen (Tylenol 325mg Tab) 650 mg PO Q4 PRN PRN Reason: Fever >100.4 F Last Admin: 08/16/17 14:45 Dose: 650 mg Acetylcysteine (Mucomyst 10% 30 Ml) 3 ml IH RTID [facility] Last Admin: 08/18/17 07:20 Dose: Not Given Al Hydrox/Mg Hydrox/Simethicone (Maalox Plus 30 Ml) 30 ml PO Q4 PRN PRN Reason: Indigestion / Heartburn Last Admin: 08/17/17 08:24 Dose: 30 ml Albuterol/Ipratropium (Duoneb 3 Mg/0.5 Mg (3 Ml) Ud) 3 ml INH RQ4 [facility] Last Admin: 08/18/17 07:18 Dose: 3 ml Aspirin (Aspirin Chewable) 81 mg PO DAILY [facility] Last Admin: 08/18/17 10:10 Dose: 81 mg Atenolol (Tenormin) 25 mg PO DAILY [facility] Last Admin: 08/18/17 10:10 Dose: 25 mg Atorvastatin Calcium (Lipitor) 80 mg PO DAILY [facility] Last Admin: 08/18/17 10:12 Dose: 80 mg Benzocaine/Menthol (Cepacol Sore Throat) 1 nick PO Q2 PRN PRN Reason: Sore Throat Last Admin: 08/17/17 01:03 Dose: 1 nick Cholecalciferol (Vitamin D) 2,000 intlu PO DAILY [facility] Last Admin: 08/18/17 10:11 Dose: 2,000 intlu Ciprofloxacin/Dexamethasone (Ciprodex Otic) 4 drop AD BID [facility] Last Admin: 08/18/17 10:09 Dose: 4 drop Docusate Sodium (Colace) 100 mg PO BID [facility] Last Admin: 08/18/17 10:09 Dose: 100 mg Enoxaparin Sodium (Lovenox) 70 mg SC Q12 JUANA PRN Reason: Protocol Last Admin: 08/18/17 10:11 Dose: 70 mg Gabapentin (Neurontin) 600 mg PO BID [facility] Last Admin: 08/18/17 10:10 Dose: 600 mg Cefepime HCl 2 gm/ Sodium (Chloride) 100 mls @ 100 mls/hr IVPB Q8 JUANA PRN Reason: Protocol Last Admin: 08/18/17 10:08 Dose: 100 mls/hr Vancomycin HCl 750 mg/ Sodium (Chloride) 250 mls @ 250 mls/hr IVPB Q12H JUANA PRN Reason: Protocol Last Admin: 08/18/17 02:05 Dose: 250 mls/hr Insulin Detemir (Levemir) 35 units SC HS [facility] Last Admin: 08/17/17 22:39 Dose: 35 units Isosorbide Mononitrate (Imdur) 60 mg PO DAILY [facility] Last Admin: 08/18/17 10:10 Dose: 60 mg Metformin HCl (Glucophage) 850 mg PO BIDWM [facility] Last Admin: 08/18/17 10:10 Dose: 850 mg Methylprednisolone (Solu-Medrol) 20 mg IVP Q12 [facility] Last Admin: 08/18/17 10:08 Dose: 20 mg Pantoprazole Sodium (Protonix Ec Tab) 40 mg PO DAILY [facility] Last Admin: 08/18/17 10:11 Dose: 40 mg Polyethylene Glycol (Miralax) 17 gm PO DAILY [facility] Last Admin: 08/18/17 10:02 Dose: Not Given Sitagliptin Phosphate (Januvia) 100 mg PO DAILY [facility] Last Admin: 08/18/17 10:09 Dose: 100 mg Sodium Chloride ([place] Nasal [place]) 1 sprays SARAH TID PRN PRN Reason: Dry nasal passages Last Admin: 08/16/17 12:21 Dose: 1 spray - Labs Labs: 08/17/17 08:42 08/17/17 08:42 - Constitutional Appears: No Acute Distress - Head Exam Head Exam: NORMAL INSPECTION Additional comments: Right sided facial droop - Eye Exam Eye Exam: Normal appearance - Respiratory Exam Respiratory Exam: Clear to Ausculation Bilateral, NORMAL BREATHING PATTERN. absent: Rhonchi, Wheezes - Cardiovascular Exam Cardiovascular Exam: REGULAR RHYTHM, +S1, +S2 - GI/Abdominal Exam GI & Abdominal Exam: Soft, Normal Bowel Sounds. 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 Mora Consult appreciated CT: Consistent with Otomastoiditis - Ear cultures did not show any growth - ID consult appreciated - C/W IV antibitoics 6-8 weeks - Blood, Urine and Ear culture showed no growth Status: Acute (2) Chest pain Assessment & Plan: Cause of chest pain Unspecified possibly MSK in orgin Toponin x 3 negative. Cardio consult appreciated Perserved EF on Echo Pt not currently a candidate for invasive intervention. F/U with cardio outpatient Status: Acute (3) Diabetes mellitus Assessment & Plan: Diabetes Mellitus type II - C/W home insulin regimine. - C/W metformin and Junuvia today Status: Chronic (4) Mild intermittent asthma Assessment & Plan: W/ an acute exacerbation - Albuterol Q4 - Ct of chest showed findings consistent with pneumonitis Status: Acute (5) DVT prophylaxis Status: Acute (6) Pneumonitis Assessment & Plan: Ct: showed findings consistent with pneumonitis Status: Acute
[2017-08-18] MEDS: Insulin Detemir 100 Units/ml Inj SC SCH (21:23)
[2017-08-19] MEDS: Cefepime 2 GM in Sodium Chloride 0.9% 100 ML IVPB SCH ×3 (00:09→16:33)
[2017-08-19] MEDS: Albuterol-Ipratrop 3 mg / 0.5 (3 ml) UD INH SCH ×5 (05:07→19:38)
[2017-08-19 05:29] LABS: HEMOGLOBIN 9.9 g/dL (12.0-18.0); MEAN CELL VOLUME 80.3 fl (80.0-94.0); MEAN CORPUSCULAR HEMOGLOBIN 25.4 pg (27.0-31.0); MEAN CORPUSCULAR HGB CONC 31.6 g/dL (33.0-37.0); RBC 3.9 Mil/uL (4.40-5.90); RED CELL DISTRIBUTION WIDTH 17.5 % (11.5-14.5); WHITE BLOOD COUNT 6.4 K/uL (4.8-10.8)
[2017-08-19 05:40] LABS: BLOOD UREA NITROGEN 12 mg/dl (9-20); CALCIUM 9.4 mg/dL (8.4-10.2); GFR AFRICAN-AMERICAN > 60; GFR NON-AFRICAN AMERICAN > 60
[2017-08-19] MEDS: Acetylcysteine 10% 4 ML IH SCH ×3 (08:22→19:38)
[2017-08-19] MEDS: Ciprofloxacin/Dexamethasone OTIC SUSP AD SCH ×2 (09:01→16:35)
[2017-08-19] MEDS: Enoxaparin 80 mg Syringe SC SCH ×2 (09:01→21:42)
[2017-08-19] MEDS: MethylPREDNISolone 40 mg Vial IVP SCH ×2 (09:03→21:42)
[2017-08-19] MEDS: Pantoprazole 40 mg EC Tab PO SCH (09:03)
[2017-08-19] MEDS: POLYETHYLENE GLYCOL 3350 17 GM/Dose PACKET PO SCH (09:04)
[2017-08-19] MEDS: Cholecalciferol 1,000 INTLU TAB PO SCH (09:05)
--- NOTE | 2017-08-19 10:52 | CP.PCM.PN ---
Subjective - Date & Time of Evaluation Date of Evaluation: 08/19/17 Time of Evaluation: 10:45 - Subjective Subjective: decreased ear pain on right, hearing loss right head: atraumatic face: decreased movements on the left const: well fed com: communicates well external nose and ears: no masses nose: deviated septum oc/op: no masses, no lesions lips/gums: no masses, lesions neck: supple thyroid: no goiter lymph: no lad a/p: ear pain hearing loss ZACH cont abx as per ID facial paralysis Objective - Vital Signs/Intake and Output Vital Signs (last 24 hours): Temp Pulse Resp BP Pulse Ox 98.7 F 96 H 18 140/62 97 08/19/17 07:56 08/19/17 09:03 08/19/17 07:56 08/19/17 09:03 08/19/17 07:56 - Medications Medications: Current Medications Acetaminophen (Tylenol 325mg Tab) 650 mg PO QID PRN PRN Reason: Pain, moderate (4-7) Last Admin: 08/17/17 20:19 Dose: 650 mg Acetaminophen (Tylenol 325mg Tab) 650 mg PO Q4 PRN PRN Reason: Fever >100.4 F Last Admin: 08/16/17 14:45 Dose: 650 mg Acetylcysteine (Mucomyst 10% 4ml) 3 ml IH RTID [facility] Last Admin: 08/19/17 08:22 Dose: 3 ml Al Hydrox/Mg Hydrox/Simethicone (Maalox Plus 30 Ml) 30 ml PO Q4 PRN PRN Reason: Indigestion / Heartburn Last Admin: 08/17/17 08:24 Dose: 30 ml Albuterol/Ipratropium (Duoneb 3 Mg/0.5 Mg (3 Ml) Ud) 3 ml INH RQ4 [facility] Last Admin: 08/19/17 08:22 Dose: 3 ml Aspirin (Aspirin Chewable) 81 mg PO DAILY [facility] Last Admin: 08/19/17 09:03 Dose: 81 mg Atenolol (Tenormin) 25 mg PO DAILY [facility] Last Admin: 08/19/17 09:03 Dose: 25 mg Atorvastatin Calcium (Lipitor) 80 mg PO DAILY [facility] Last Admin: 08/19/17 09:04 Dose: 80 mg Benzocaine/Menthol (Cepacol Sore Throat) 1 nick PO Q2 PRN PRN Reason: Sore Throat Last Admin: 08/17/17 01:03 Dose: 1 nick Cholecalciferol (Vitamin D) 2,000 intlu PO DAILY [facility] Last Admin: 08/19/17 09:05 Dose: 2,000 intlu Ciprofloxacin/Dexamethasone (Ciprodex Otic) 4 drop AD BID [facility] Last Admin: 08/19/17 09:01 Dose: 4 drop Docusate Sodium (Colace) 100 mg PO BID [facility] Last Admin: 08/19/17 09:02 Dose: 100 mg Enoxaparin Sodium (Lovenox) 70 mg SC Q12 JUANA PRN Reason: Protocol Last Admin: 08/19/17 09:01 Dose: 70 mg Gabapentin (Neurontin) 600 mg PO BID [facility] Last Admin: 08/19/17 09:02 Dose: 600 mg Cefepime HCl 2 gm/ Sodium (Chloride) 100 mls @ 100 mls/hr IVPB Q8 [facility] PRN Reason: Protocol Last Admin: 08/19/17 09:00 Dose: 100 mls/hr Vancomycin HCl 750 mg/ Sodium (Chloride) 250 mls @ 250 mls/hr IVPB Q12H [facility] PRN Reason: Protocol Last Admin: 08/19/17 01:47 Dose: 250 mls/hr Insulin Detemir (Levemir) 35 units SC HS [facility] Last Admin: 08/18/17 21:23 Dose: 35 units Isosorbide Mononitrate (Imdur) 60 mg PO DAILY [facility] Last Admin: 08/19/17 09:02 Dose: 60 mg Metformin HCl (Glucophage) 850 mg PO BIDWM [facility] Last Admin: 08/19/17 09:00 Dose: 850 mg Methylprednisolone (Solu-Medrol) 20 mg IVP Q12 [facility] Last Admin: 08/19/17 09:03 Dose: 20 mg Pantoprazole Sodium (Protonix Ec Tab) 40 mg PO DAILY [facility] Last Admin: 08/19/17 09:03 Dose: 40 mg Polyethylene Glycol (Miralax) 17 gm PO DAILY [facility] Last Admin: 08/19/17 09:04 Dose: Not Given Sitagliptin Phosphate (Januvia) 100 mg PO DAILY [facility] Last Admin: 08/19/17 09:04 Dose: 100 mg Sodium Chloride ([place] Nasal [place]) 1 sprays SARAH TID PRN PRN Reason: Dry nasal passages Last Admin: 08/16/17 12:21 Dose: 1 spray - Labs Labs: 08/19/17 04:20 08/19/17 04:20
--- NOTE | 2017-08-19 13:33 | CP.PCM.PN ---
Subjective - Date & Time of Evaluation Date of Evaluation: 08/19/17 Time of Evaluation: 09:00 - Subjective Subjective: ENT on board IV rx tolerated less fever right eye patched due to paralysis/ diploplia facial weakness + consider bone scan Objective - Vital Signs/Intake and Output Vital Signs (last 24 hours): Temp Pulse Resp BP Pulse Ox 98.3 F 81 18 112/63 100 08/19/17 13:00 08/19/17 13:00 08/19/17 13:00 08/19/17 13:00 08/19/17 13:00 - Medications Medications: Current Medications Acetaminophen (Tylenol 325mg Tab) 650 mg PO QID PRN PRN Reason: Pain, moderate (4-7) Last Admin: 08/17/17 20:19 Dose: 650 mg Acetaminophen (Tylenol 325mg Tab) 650 mg PO Q4 PRN PRN Reason: Fever >100.4 F Last Admin: 08/16/17 14:45 Dose: 650 mg Acetylcysteine (Mucomyst 10% 4ml) 3 ml IH RTID [facility] Last Admin: 08/19/17 13:29 Dose: 3 ml Al Hydrox/Mg Hydrox/Simethicone (Maalox Plus 30 Ml) 30 ml PO Q4 PRN PRN Reason: Indigestion / Heartburn Last Admin: 08/17/17 08:24 Dose: 30 ml Albuterol/Ipratropium (Duoneb 3 Mg/0.5 Mg (3 Ml) Ud) 3 ml INH RQ4 [facility] Last Admin: 08/19/17 08:22 Dose: 3 ml Artificial Tears (Artificial Tears) 2 drop OU Q4 PRN PRN Reason: Dry eyes Aspirin (Aspirin Chewable) 81 mg PO DAILY [facility] Last Admin: 08/19/17 09:03 Dose: 81 mg Atenolol (Tenormin) 25 mg PO DAILY [facility] Last Admin: 08/19/17 09:03 Dose: 25 mg Atorvastatin Calcium (Lipitor) 80 mg PO DAILY [facility] Last Admin: 08/19/17 09:04 Dose: 80 mg Benzocaine/Menthol (Cepacol Sore Throat) 1 nick PO Q2 PRN PRN Reason: Sore Throat Last Admin: 08/17/17 01:03 Dose: 1 nick Cholecalciferol (Vitamin D) 2,000 intlu PO DAILY [facility] Last Admin: 08/19/17 09:05 Dose: 2,000 intlu Ciprofloxacin/Dexamethasone (Ciprodex Otic) 4 drop AD BID [facility] Last Admin: 08/19/17 09:01 Dose: 4 drop Docusate Sodium (Colace) 100 mg PO BID [facility] Last Admin: 08/19/17 09:02 Dose: 100 mg Enoxaparin Sodium (Lovenox) 70 mg SC Q12 [facility] PRN Reason: Protocol Last Admin: 08/19/17 09:01 Dose: 70 mg Gabapentin (Neurontin) 600 mg PO BID [facility] Cefepime HCl 2 gm/ Sodium (Chloride) 100 mls @ 100 mls/hr IVPB Q8 [facility] PRN Reason: Protocol Last Admin: 08/19/17 09:00 Dose: 100 mls/hr Vancomycin HCl 750 mg/ Sodium (Chloride) 250 mls @ 250 mls/hr IVPB Q12H [facility] PRN Reason: Protocol Last Admin: 08/19/17 01:47 Dose: 250 mls/hr Insulin Detemir (Levemir) 35 units SC [facility] Last Admin: 08/18/17 21:23 Dose: 35 units Isosorbide Mononitrate (Imdur) 60 mg PO DAILY [facility] Last Admin: 08/19/17 09:02 Dose: 60 mg Metformin HCl (Glucophage) 850 mg PO BIDWM [facility] Last Admin: 08/19/17 09:00 Dose: 850 mg Methylprednisolone (Solu-Medrol) 20 mg IVP Q12 [facility] Last Admin: 08/19/17 09:03 Dose: 20 mg Pantoprazole Sodium (Protonix Ec Tab) 40 mg PO DAILY [facility] Last Admin: 08/19/17 09:03 Dose: 40 mg Polyethylene Glycol (Miralax) 17 gm PO DAILY [facility] Last Admin: 08/19/17 09:04 Dose: Not Given Sitagliptin Phosphate (Januvia) 100 mg PO DAILY [facility] Last Admin: 08/19/17 09:04 Dose: 100 mg Sodium Chloride ([place] Nasal [place]) 1 sprays SARAH TID PRN PRN Reason: Dry nasal passages Last Admin: 08/16/17 12:21 Dose: 1 spray - Labs Labs: 08/19/17 04:20 08/19/17 04:20 - Constitutional Appears: Cachectic, Chronically Ill - Head Exam Head Exam: NORMOCEPHALIC - Eye Exam Eye Exam: PERRL. absent: Scleral icterus - ENT Exam ENT Exam: Mucous Membranes Dry - Neck Exam Neck Exam: absent: Lymphadenopathy - Respiratory Exam Respiratory Exam: Decreased Breath Sounds - Cardiovascular Exam Cardiovascular Exam: REGULAR RHYTHM - GI/Abdominal Exam GI & Abdominal Exam: Distended, Soft - Rectal Exam Rectal Exam: Deferred - Exam Exam: NORMAL INSPECTION - Extremities Exam Extremities Exam: absent: Pedal Edema - Back Exam Back Exam: absent: CVA tenderness (L), CVA tenderness (R) - Neurological Exam Neurological Exam: Alert, Awake, Oriented x3 - Psychiatric Exam Psychiatric exam: Depressed - Skin Skin Exam: Dry Assessment and Plan (1) DVT prophylaxis Status: Acute (2) Mastoiditis Status: Acute (3) Mild intermittent asthma Status: Acute (4) Diabetes mellitus Status: Chronic (5) Mild persistent asthma Status: Chronic - Assessment and Plan (Free Text) Assessment: ENT on board IV rx tolerated less fever right eye patched due to paralysis/ diploplia facial weakness + consider bone scan
--- NOTE | 2017-08-19 14:05 | CP.PCM.PN ---
Subjective - Date & Time of Evaluation Date of Evaluation: 08/19/17 Time of Evaluation: 14:04 - Subjective Subjective: Patient was seen at bedside doing well. Patient has been afebrile overnight. No overnight events reported Objective - Vital Signs/Intake and Output Vital Signs (last 24 hours): Temp Pulse Resp BP Pulse Ox 98.3 F 81 18 112/63 100 08/19/17 13:00 08/19/17 13:00 08/19/17 13:00 08/19/17 13:00 08/19/17 13:00 - Medications Medications: Current Medications Acetaminophen (Tylenol 325mg Tab) 650 mg PO QID PRN PRN Reason: Pain, moderate (4-7) Last Admin: 08/17/17 20:19 Dose: 650 mg Acetaminophen (Tylenol 325mg Tab) 650 mg PO Q4 PRN PRN Reason: Fever >100.4 F Last Admin: 08/16/17 14:45 Dose: 650 mg Acetylcysteine (Mucomyst 10% 4ml) 3 ml IH RTID [facility] Last Admin: 08/19/17 13:29 Dose: 3 ml Al Hydrox/Mg Hydrox/Simethicone (Maalox Plus 30 Ml) 30 ml PO Q4 PRN PRN Reason: Indigestion / Heartburn Last Admin: 08/17/17 08:24 Dose: 30 ml Albuterol/Ipratropium (Duoneb 3 Mg/0.5 Mg (3 Ml) Ud) 3 ml INH RQ4 [facility] Last Admin: 08/19/17 08:22 Dose: 3 ml Artificial Tears (Artificial Tears) 2 drop OU Q4 PRN PRN Reason: Dry eyes Aspirin (Aspirin Chewable) 81 mg PO DAILY [facility] Last Admin: 08/19/17 09:03 Dose: 81 mg Atenolol (Tenormin) 25 mg PO DAILY [facility] Last Admin: 08/19/17 09:03 Dose: 25 mg Atorvastatin Calcium (Lipitor) 80 mg PO DAILY [facility] Last Admin: 08/19/17 09:04 Dose: 80 mg Benzocaine/Menthol (Cepacol Sore Throat) 1 nick PO Q2 PRN PRN Reason: Sore Throat Last Admin: 08/17/17 01:03 Dose: 1 nick Cholecalciferol (Vitamin D) 2,000 intlu PO DAILY [facility] Last Admin: 08/19/17 09:05 Dose: 2,000 intlu Ciprofloxacin/Dexamethasone (Ciprodex Otic) 4 drop AD BID [facility] Last Admin: 08/19/17 09:01 Dose: 4 drop Docusate Sodium (Colace) 100 mg PO BID [facility] Last Admin: 08/19/17 09:02 Dose: 100 mg Enoxaparin Sodium (Lovenox) 70 mg SC Q12 [facility] PRN Reason: Protocol Last Admin: 08/19/17 09:01 Dose: 70 mg Fluconazole (Diflucan) 200 mg PO DAILY [facility] PRN Reason: Protocol Gabapentin (Neurontin) 600 mg PO BID [facility] Cefepime HCl 2 gm/ Sodium (Chloride) 100 mls @ 100 mls/hr IVPB Q8 [facility] PRN Reason: Protocol Last Admin: 08/19/17 09:00 Dose: 100 mls/hr Vancomycin HCl 750 mg/ Sodium (Chloride) 250 mls @ 250 mls/hr IVPB Q12H [facility] PRN Reason: Protocol Last Admin: 08/19/17 01:47 Dose: 250 mls/hr Insulin Detemir (Levemir) 35 units SC HS [facility] Last Admin: 08/18/17 21:23 Dose: 35 units Isosorbide Mononitrate (Imdur) 60 mg PO DAILY [facility] Last Admin: 08/19/17 09:02 Dose: 60 mg Metformin HCl (Glucophage) 850 mg PO BIDWM [facility] Last Admin: 08/19/17 09:00 Dose: 850 mg Methylprednisolone (Solu-Medrol) 20 mg IVP Q12 [facility] Last Admin: 08/19/17 09:03 Dose: 20 mg Pantoprazole Sodium (Protonix Ec Tab) 40 mg PO DAILY [facility] Last Admin: 08/19/17 09:03 Dose: 40 mg Polyethylene Glycol (Miralax) 17 gm PO DAILY [facility] Last Admin: 08/19/17 09:04 Dose: Not Given Sitagliptin Phosphate (Januvia) 100 mg PO DAILY [facility] Last Admin: 08/19/17 09:04 Dose: 100 mg Sodium Chloride ([place] Nasal [place]) 1 sprays SARAH TID PRN PRN Reason: Dry nasal passages Last Admin: 08/16/17 12:21 Dose: 1 spray - Labs Labs: 08/19/17 04:20 08/19/17 04:20 - Constitutional Appears: No Acute Distress - Head Exam Head Exam: NORMAL INSPECTION Additional comments: Right sided facial droop - Respiratory Exam Respiratory Exam: Clear to Ausculation Bilateral. absent: Rhonchi, Wheezes - Cardiovascular Exam Cardiovascular Exam: REGULAR RHYTHM, +S1, +S2 - GI/Abdominal Exam GI & Abdominal Exam: Soft. absent: Tenderness - Extremities Exam Extremities Exam: Normal Inspection. absent: Calf Tenderness - Neurological Exam Neurological Exam: Alert, Awake, Oriented x3 - Skin Skin Exam: Normal Color, Warm Assessment and Plan (1) Mastoiditis Status: Acute (2) Chest pain Status: Acute (3) Diabetes mellitus Status: Chronic (4) Mild intermittent asthma Status: Acute (5) DVT prophylaxis Status: Acute (6) Pneumonitis Status: Acute - Assessment and Plan (Free Text) Assessment: C/W IV antiviotics 4-5 weeks as per ID Right eye patch for paralysis and diplopia - Blood, Urine and Ear culture showed no growth
[2017-08-19] MEDS ORDERED: Sterile Water 10 ML IV ONE (18:52)
[2017-08-19] MEDS: Insulin Detemir 100 Units/ml Inj SC SCH (21:45)
[2017-08-20] MEDS: Albuterol-Ipratrop 3 mg / 0.5 (3 ml) UD INH SCH ×5 (00:15→20:05)
[2017-08-20] MEDS: Cefepime 2 GM in Sodium Chloride 0.9% 100 ML IVPB SCH ×3 (00:50→16:24)
[2017-08-20] MEDS: Acetylcysteine 10% 4 ML IH SCH ×3 (08:06→20:05)
[2017-08-20] MEDS: Enoxaparin 80 mg Syringe SC SCH ×2 (08:49→20:56)
[2017-08-20] MEDS: POLYETHYLENE GLYCOL 3350 17 GM/Dose PACKET PO SCH (08:50)
[2017-08-20] MEDS: Ciprofloxacin/Dexamethasone OTIC SUSP AD SCH ×2 (08:50→16:27)
[2017-08-20] MEDS: Cholecalciferol 1,000 INTLU TAB PO SCH (08:51)
[2017-08-20] MEDS: Pantoprazole 40 mg EC Tab PO SCH (08:53)
[2017-08-20] MEDS: Benzocaine/Menthol (Cepacol) Lozenge PO PRN (08:54)
[2017-08-20] MEDS: MethylPREDNISolone 40 mg Vial IVP SCH ×2 (09:00→20:53)
--- NOTE | 2017-08-20 13:38 | CP.PCM.PN ---
Subjective - Date & Time of Evaluation Date of Evaluation: 08/20/17 Time of Evaluation: 13:36 - Subjective Subjective: - Patient seen resting comfortably in bed. States he dislikes having the eye patch on. Importance of eyepatch discussed with the patient. Otherwise doing well. Denies chest pain, SOB, N/V/D. No fevers reported overnight. Objective - Vital Signs/Intake and Output Vital Signs (last 24 hours): Temp Pulse Resp BP Pulse Ox 98 F 82 18 126/68 100 08/20/17 12:00 08/20/17 12:00 08/20/17 12:00 08/20/17 12:00 08/20/17 12:00 - Medications Medications: Current Medications Acetaminophen (Tylenol 325mg Tab) 650 mg PO QID PRN PRN Reason: Pain, moderate (4-7) Last Admin: 08/17/17 20:19 Dose: 650 mg Acetaminophen (Tylenol 325mg Tab) 650 mg PO Q4 PRN PRN Reason: Fever >100.4 F Last Admin: 08/16/17 14:45 Dose: 650 mg Acetylcysteine (Mucomyst 10% 4ml) 3 ml IH RTID [facility] Last Admin: 08/20/17 13:10 Dose: 3 ml Al Hydrox/Mg Hydrox/Simethicone (Maalox Plus 30 Ml) 30 ml PO Q4 PRN PRN Reason: Indigestion / Heartburn Last Admin: 08/17/17 08:24 Dose: 30 ml Albuterol/Ipratropium (Duoneb 3 Mg/0.5 Mg (3 Ml) Ud) 3 ml INH RQ4 [facility] Last Admin: 08/20/17 13:09 Dose: 3 ml Artificial Tears (Artificial Tears) 2 drop OU Q4 PRN PRN Reason: Dry eyes Aspirin (Aspirin Chewable) 81 mg PO DAILY [facility] Last Admin: 08/20/17 08:50 Dose: 81 mg Atenolol (Tenormin) 25 mg PO DAILY [facility] Last Admin: 08/20/17 08:54 Dose: 25 mg Atorvastatin Calcium (Lipitor) 80 mg PO DAILY [facility] Last Admin: 08/20/17 08:51 Dose: 80 mg Benzocaine/Menthol (Cepacol Sore Throat) 1 nick PO Q2 PRN PRN Reason: Sore Throat Last Admin: 08/20/17 08:54 Dose: 1 nick Cholecalciferol (Vitamin D) 2,000 intlu PO DAILY [facility] Last Admin: 08/20/17 08:51 Dose: 2,000 intlu Ciprofloxacin/Dexamethasone (Ciprodex Otic) 4 drop AD BID [facility] Last Admin: 08/20/17 08:50 Dose: 4 drop Docusate Sodium (Colace) 100 mg PO BID [facility] Last Admin: 08/20/17 09:00 Dose: 100 mg Enoxaparin Sodium (Lovenox) 70 mg SC Q12 [facility] PRN Reason: Protocol Last Admin: 08/20/17 08:49 Dose: 70 mg Fluconazole (Diflucan) 200 mg PO DAILY [facility] PRN Reason: Protocol Last Admin: 08/20/17 08:53 Dose: 200 mg Gabapentin (Neurontin) 600 mg PO BID [facility] Last Admin: 08/20/17 08:54 Dose: 600 mg Cefepime HCl 2 gm/ Sodium (Chloride) 100 mls @ 100 mls/hr IVPB Q8 [facility] PRN Reason: Protocol Last Admin: 08/20/17 08:49 Dose: 100 mls/hr Vancomycin HCl 750 mg/ Sodium (Chloride) 250 mls @ 250 mls/hr IVPB Q12H [facility] PRN Reason: Protocol Last Admin: 08/20/17 02:45 Dose: 250 mls/hr Insulin Detemir (Levemir) 35 units SC HS [facility] Last Admin: 08/19/17 21:45 Dose: 35 units Isosorbide Mononitrate (Imdur) 60 mg PO DAILY [facility] Last Admin: 08/20/17 08:53 Dose: 60 mg Metformin HCl (Glucophage) 850 mg PO BIDWM [facility] Last Admin: 08/20/17 08:50 Dose: 850 mg Methylprednisolone (Solu-Medrol) 20 mg IVP Q12 [facility] Last Admin: 08/20/17 09:00 Dose: 20 mg Pantoprazole Sodium (Protonix Ec Tab) 40 mg PO DAILY [facility] Last Admin: 08/20/17 08:53 Dose: 40 mg Polyethylene Glycol (Miralax) 17 gm PO DAILY [facility] Last Admin: 08/20/17 08:50 Dose: 17 gm Sitagliptin Phosphate (Januvia) 100 mg PO DAILY [facility] Last Admin: 08/20/17 08:53 Dose: 100 mg Sodium Chloride ([place] Nasal [place]) 1 sprays SARAH TID PRN PRN Reason: Dry nasal passages Last Admin: 08/16/17 12:21 Dose: 1 spray - Labs Labs: 08/19/17 04:20 08/19/17 04:20 - Constitutional Appears: No Acute Distress - Head Exam Head Exam: NORMAL INSPECTION Additional comments: Right sided chronic facial droop - Eye Exam Additional comments: Right sided eye patch intact - Respiratory Exam Respiratory Exam: Clear to Ausculation Bilateral. absent: Rhonchi, Wheezes - Cardiovascular Exam Cardiovascular Exam: REGULAR RHYTHM, +S1, +S2 - Neurological Exam Neurological Exam: Alert, Awake, Oriented x3 - Skin Skin Exam: Normal Color, Warm Assessment and Plan (1) Mastoiditis Status: Acute (2) Chest pain Status: Acute (3) Diabetes mellitus Status: Chronic (4) Mild intermittent asthma Status: Acute (5) DVT prophylaxis Status: Acute (6) Pneumonitis Status: Acute - Assessment and Plan (Free Text) Assessment: C/W IV antiviotics 4-5 weeks as per ID Right eye patch for paralysis and diplopia - Blood, Urine and Ear culture showed no growth -
[2017-08-20] MEDS: Artificial Tears Opht Soln OU PRN (20:54)
[2017-08-20] MEDS: Insulin Detemir 100 Units/ml Inj SC SCH (22:35)
[2017-08-21] MEDS: Cefepime 2 GM in Sodium Chloride 0.9% 100 ML IVPB SCH ×3 (00:02→17:13)
[2017-08-21] MEDS: Albuterol-Ipratrop 3 mg / 0.5 (3 ml) UD INH SCH ×6 (00:11→19:11)
[2017-08-21] MEDS: Acetylcysteine 10% 4 ML IH SCH ×3 (07:20→19:10)
[2017-08-21] MEDS: Ciprofloxacin/Dexamethasone OTIC SUSP AD SCH ×2 (08:46→17:12)
[2017-08-21] MEDS: Enoxaparin 80 mg Syringe SC SCH ×2 (08:48→21:30)
[2017-08-21] MEDS: MethylPREDNISolone 40 mg Vial IVP SCH ×2 (08:52→21:29)
[2017-08-21] MEDS: POLYETHYLENE GLYCOL 3350 17 GM/Dose PACKET PO SCH (08:52)
[2017-08-21] MEDS: Pantoprazole 40 mg EC Tab PO SCH (08:52)
[2017-08-21] MEDS: Cholecalciferol 1,000 INTLU TAB PO SCH (08:54)
[2017-08-21] MEDS: Benzocaine/Menthol (Cepacol) Lozenge PO PRN ×2 (09:03→18:31)
--- NOTE | 2017-08-21 12:26 | CP.PCM.PN ---
Subjective - Date & Time of Evaluation Date of Evaluation: 08/21/17 Time of Evaluation: 07:00 - Subjective Subjective: seen on rounds iv rx in progress no fever for ceretec scan Objective - Vital Signs/Intake and Output Vital Signs (last 24 hours): Temp Pulse Resp BP Pulse Ox 98.3 F 86 18 115/61 95 08/21/17 08:28 08/21/17 08:53 08/21/17 08:28 08/21/17 08:53 08/21/17 08:28 - Medications Medications: Current Medications Acetaminophen (Tylenol 325mg Tab) 650 mg PO QID PRN PRN Reason: Pain, moderate (4-7) Last Admin: 08/17/17 20:19 Dose: 650 mg Acetaminophen (Tylenol 325mg Tab) 650 mg PO Q4 PRN PRN Reason: Fever >100.4 F Last Admin: 08/16/17 14:45 Dose: 650 mg Acetylcysteine (Mucomyst 10% 4ml) 3 ml IH RTID [facility] Last Admin: 08/21/17 07:20 Dose: 3 ml Al Hydrox/Mg Hydrox/Simethicone (Maalox Plus 30 Ml) 30 ml PO Q4 PRN PRN Reason: Indigestion / Heartburn Last Admin: 08/17/17 08:24 Dose: 30 ml Albuterol/Ipratropium (Duoneb 3 Mg/0.5 Mg (3 Ml) Ud) 3 ml INH RQ4 [facility] Last Admin: 08/21/17 12:08 Dose: 3 ml Artificial Tears (Artificial Tears) 2 drop OU Q4 PRN PRN Reason: Dry eyes Last Admin: 08/20/17 20:54 Dose: 2 drop Aspirin (Aspirin Chewable) 81 mg PO DAILY [facility] Last Admin: 08/21/17 08:45 Dose: 81 mg Atenolol (Tenormin) 25 mg PO DAILY [facility] Last Admin: 08/21/17 08:53 Dose: 25 mg Atorvastatin Calcium (Lipitor) 80 mg PO DAILY [facility] Last Admin: 08/21/17 08:48 Dose: 80 mg Benzocaine/Menthol (Cepacol Sore Throat) 1 nick PO Q2 PRN PRN Reason: Sore Throat Last Admin: 08/21/17 09:03 Dose: 1 nick Cholecalciferol (Vitamin D) 2,000 intlu PO DAILY [facility] Last Admin: 08/21/17 08:54 Dose: 2,000 intlu Ciprofloxacin/Dexamethasone (Ciprodex Otic) 4 drop AD BID [facility] Last Admin: 08/21/17 08:46 Dose: 4 drop Docusate Sodium (Colace) 100 mg PO BID [facility] Last Admin: 08/21/17 08:46 Dose: 100 mg Enoxaparin Sodium (Lovenox) 70 mg SC Q12 [facility] PRN Reason: Protocol Last Admin: 08/21/17 08:48 Dose: 70 mg Fluconazole (Diflucan) 200 mg PO DAILY [facility] PRN Reason: Protocol Last Admin: 08/21/17 08:51 Dose: 200 mg Gabapentin (Neurontin) 600 mg PO BID [facility] Last Admin: 08/21/17 08:52 Dose: 600 mg Cefepime HCl 2 gm/ Sodium (Chloride) 100 mls @ 100 mls/hr IVPB Q8 [facility] PRN Reason: Protocol Last Admin: 08/21/17 08:51 Dose: 100 mls/hr Vancomycin HCl 750 mg/ Sodium (Chloride) 250 mls @ 250 mls/hr IVPB Q12H [facility] PRN Reason: Protocol Last Admin: 08/21/17 01:15 Dose: 250 mls/hr Insulin Detemir (Levemir) 35 units SC HS [facility] Last Admin: 08/20/17 22:35 Dose: 35 units Isosorbide Mononitrate (Imdur) 60 mg PO DAILY [facility] Last Admin: 08/21/17 08:47 Dose: 60 mg Metformin HCl (Glucophage) 850 mg PO BIDWM [facility] Last Admin: 08/21/17 08:47 Dose: 850 mg Methylprednisolone (Solu-Medrol) 20 mg IVP Q12 [facility] Last Admin: 08/21/17 08:52 Dose: 20 mg Pantoprazole Sodium (Protonix Ec Tab) 40 mg PO DAILY [facility] Last Admin: 08/21/17 08:52 Dose: 40 mg Polyethylene Glycol (Miralax) 17 gm PO DAILY [facility] Last Admin: 08/21/17 08:52 Dose: 17 gm Sitagliptin Phosphate (Januvia) 100 mg PO DAILY [facility] Last Admin: 08/21/17 08:47 Dose: 100 mg Sodium Chloride ([place] Nasal [place]) 1 sprays SARAH TID PRN PRN Reason: Dry nasal passages Last Admin: 08/16/17 12:21 Dose: 1 spray - Labs Labs: 08/19/17 04:20 08/19/17 04:20 - Constitutional Appears: Chronically Ill - Head Exam Head Exam: NORMAL INSPECTION Additional comments: facial weakness right side - Eye Exam Eye Exam: absent: Scleral icterus - ENT Exam ENT Exam: Mucous Membranes Dry - Neck Exam Neck Exam: absent: Lymphadenopathy - Respiratory Exam Respiratory Exam: Decreased Breath Sounds - Cardiovascular Exam Cardiovascular Exam: REGULAR RHYTHM, +S1, +S2 - GI/Abdominal Exam GI & Abdominal Exam: Distended, Soft, Diminished Bowel Sounds. absent: Tenderness - Rectal Exam Rectal Exam: Deferred - Exam Exam: NORMAL INSPECTION - Extremities Exam Extremities Exam: absent: Pedal Edema - Back Exam Back Exam: absent: CVA tenderness (L), CVA tenderness (R) - Neurological Exam Neurological Exam: Alert, Awake, Oriented x3 Neuro motor strength exam: Left Upper Extremity: 4, Right Upper Extremity: 4, Left Lower Extremity: 4, Right Lower Extremity: 4 - Psychiatric Exam Psychiatric exam: Depressed - Skin Skin Exam: Dry Assessment and Plan (1) DVT prophylaxis Status: Acute (2) Mastoiditis Status: Acute (3) Mild intermittent asthma Status: Acute (4) Diabetes mellitus Status: Chronic (5) Mild persistent asthma Status: Chronic - Assessment and Plan (Free Text) Assessment: cont rx for OM 'awair ceretec scan
--- NOTE | 2017-08-21 15:00 | CP.PCM.PN ---
Subjective - Date & Time of Evaluation Date of Evaluation: 08/21/17 Time of Evaluation: 10:45 - Subjective Subjective: Patient seen resting comfortably in bed. Patient removed eye patch.. Importance of eyepatch discussed with the patient. Otherwise doing well. Denies chest pain , SOB, N/V/D. No fevers reported overnight. Unable to DC home yesterday due to patient's brothers is sick and unable to take care of him. Objective - Vital Signs/Intake and Output Vital Signs (last 24 hours): Temp Pulse Resp BP Pulse Ox 98.3 F 86 18 115/61 95 08/21/17 08:28 08/21/17 08:53 08/21/17 08:28 08/21/17 08:53 08/21/17 08:28 - Medications Medications: Current Medications Acetaminophen (Tylenol 325mg Tab) 650 mg PO QID PRN PRN Reason: Pain, moderate (4-7) Last Admin: 08/17/17 20:19 Dose: 650 mg Acetaminophen (Tylenol 325mg Tab) 650 mg PO Q4 PRN PRN Reason: Fever >100.4 F Last Admin: 08/16/17 14:45 Dose: 650 mg Acetylcysteine (Mucomyst 10% 4ml) 3 ml IH RTID [facility] Last Admin: 08/21/17 07:20 Dose: 3 ml Al Hydrox/Mg Hydrox/Simethicone (Maalox Plus 30 Ml) 30 ml PO Q4 PRN PRN Reason: Indigestion / Heartburn Last Admin: 08/17/17 08:24 Dose: 30 ml Albuterol/Ipratropium (Duoneb 3 Mg/0.5 Mg (3 Ml) Ud) 3 ml INH RQ4 [facility] Last Admin: 08/21/17 12:08 Dose: 3 ml Artificial Tears (Artificial Tears) 2 drop OU Q4 PRN PRN Reason: Dry eyes Last Admin: 08/20/17 20:54 Dose: 2 drop Aspirin (Aspirin Chewable) 81 mg PO DAILY [facility] Last Admin: 08/21/17 08:45 Dose: 81 mg Atenolol (Tenormin) 25 mg PO DAILY [facility] Last Admin: 08/21/17 08:53 Dose: 25 mg Atorvastatin Calcium (Lipitor) 80 mg PO DAILY [facility] Last Admin: 08/21/17 08:48 Dose: 80 mg Benzocaine/Menthol (Cepacol Sore Throat) 1 nick PO Q2 PRN PRN Reason: Sore Throat Last Admin: 08/21/17 09:03 Dose: 1 nick Cholecalciferol (Vitamin D) 2,000 intlu PO DAILY [facility] Last Admin: 08/21/17 08:54 Dose: 2,000 intlu Ciprofloxacin/Dexamethasone (Ciprodex Otic) 4 drop AD BID [facility] Last Admin: 08/21/17 08:46 Dose: 4 drop Docusate Sodium (Colace) 100 mg PO BID [facility] Last Admin: 08/21/17 08:46 Dose: 100 mg Enoxaparin Sodium (Lovenox) 70 mg SC Q12 [facility] PRN Reason: Protocol Last Admin: 08/21/17 08:48 Dose: 70 mg Fluconazole (Diflucan) 200 mg PO DAILY [facility] PRN Reason: Protocol Last Admin: 08/21/17 08:51 Dose: 200 mg Gabapentin (Neurontin) 600 mg PO BID [facility] Last Admin: 08/21/17 08:52 Dose: 600 mg Cefepime HCl 2 gm/ Sodium (Chloride) 100 mls @ 100 mls/hr IVPB Q8 [facility] PRN Reason: Protocol Last Admin: 08/21/17 08:51 Dose: 100 mls/hr Vancomycin HCl 750 mg/ Sodium (Chloride) 250 mls @ 250 mls/hr IVPB Q12H [facility] PRN Reason: Protocol Last Admin: 08/21/17 01:15 Dose: 250 mls/hr Insulin Detemir (Levemir) 35 units SC HS [facility] Last Admin: 08/20/17 22:35 Dose: 35 units Isosorbide Mononitrate (Imdur) 60 mg PO DAILY [facility] Last Admin: 08/21/17 08:47 Dose: 60 mg Metformin HCl (Glucophage) 850 mg PO BIDWM [facility] Last Admin: 08/21/17 08:47 Dose: 850 mg Methylprednisolone (Solu-Medrol) 20 mg IVP Q12 [facility] Last Admin: 08/21/17 08:52 Dose: 20 mg Pantoprazole Sodium (Protonix Ec Tab) 40 mg PO DAILY [facility] Last Admin: 08/21/17 08:52 Dose: 40 mg Polyethylene Glycol (Miralax) 17 gm PO DAILY [facility] Last Admin: 08/21/17 08:52 Dose: 17 gm Sitagliptin Phosphate (Januvia) 100 mg PO DAILY [facility] Last Admin: 08/21/17 08:47 Dose: 100 mg Sodium Chloride ([place] Nasal [place]) 1 sprays SARAH TID PRN PRN Reason: Dry nasal passages Last Admin: 08/16/17 12:21 Dose: 1 spray - Labs Labs: 08/19/17 04:20 08/19/17 04:20 - Constitutional Appears: Non-toxic - Eye Exam Additional comments: Facial palsy - ENT Exam ENT Exam: Mucous Membranes Moist - Neck Exam Neck Exam: Full ROM - Respiratory Exam Respiratory Exam: Clear to Ausculation Bilateral, NORMAL BREATHING PATTERN - Cardiovascular Exam Cardiovascular Exam: REGULAR RHYTHM, +S1, +S2. absent: Gallop - GI/Abdominal Exam GI & Abdominal Exam: Soft, Normal Bowel Sounds - Extremities Exam Extremities Exam: Normal Capillary Refill. absent: Tenderness - Neurological Exam Neurological Exam: Alert, Awake, Normal Gait, Oriented x3 - Psychiatric Exam Psychiatric exam: Normal Affect, Normal Mood - Skin Skin Exam: Warm Assessment and Plan (1) Facial palsy Assessment & Plan: C/W eye patch and drops Status: Acute (2) COPD (chronic obstructive pulmonary disease) Status: Chronic (3) Mastoiditis Assessment & Plan: C/W IV Abx as per ID For WBC scan as per ID Stable Status: Acute (4) Pneumonitis Status: Acute (5) Diabetes mellitus Status: Chronic
[2017-08-21] MEDS: Insulin Detemir 100 Units/ml Inj SC SCH (22:35)
[2017-08-22] MEDS: Albuterol-Ipratrop 3 mg / 0.5 (3 ml) UD INH SCH ×6 (00:48→19:46)
[2017-08-22] MEDS: Cefepime 2 GM in Sodium Chloride 0.9% 100 ML IVPB SCH ×3 (01:07→16:52)
[2017-08-22] MEDS: Acetylcysteine 10% 4 ML IH SCH ×3 (08:04→19:46)
[2017-08-22] MEDS: MethylPREDNISolone 40 mg Vial IVP SCH ×2 (09:33→21:39)
[2017-08-22] MEDS: Ciprofloxacin/Dexamethasone OTIC SUSP AD SCH ×2 (09:35→16:52)
[2017-08-22] MEDS: Cholecalciferol 1,000 INTLU TAB PO SCH (09:36)
[2017-08-22] MEDS: Pantoprazole 40 mg EC Tab PO SCH (09:37)
[2017-08-22] MEDS: POLYETHYLENE GLYCOL 3350 17 GM/Dose PACKET PO SCH (09:38)
[2017-08-22] MEDS: Enoxaparin 80 mg Syringe SC SCH ×2 (09:39→21:35)
[2017-08-22] MEDS: Artificial Tears Opht Soln OU PRN ×2 (10:47→14:35)
[2017-08-22] MEDS: Insulin Detemir 100 Units/ml Inj SC SCH (22:34)
[2017-08-23] MEDS: Cefepime 2 GM in Sodium Chloride 0.9% 100 ML IVPB SCH ×3 (00:27→17:00)
[2017-08-23] MEDS: Albuterol-Ipratrop 3 mg / 0.5 (3 ml) UD INH SCH ×6 (00:34→19:09)
[2017-08-23] MEDS: Cholecalciferol 1,000 INTLU TAB PO SCH (09:00)
[2017-08-23] MEDS: Acetylcysteine 10% 4 ML IH SCH ×4 (09:20→19:09)
[2017-08-23] MEDS: Enoxaparin 80 mg Syringe SC SCH ×2 (09:36→21:45)
[2017-08-23] MEDS: Pantoprazole 40 mg EC Tab PO SCH (09:36)
[2017-08-23] MEDS: Ciprofloxacin/Dexamethasone OTIC SUSP AD SCH (09:40)
[2017-08-23] MEDS: POLYETHYLENE GLYCOL 3350 17 GM/Dose PACKET PO SCH (09:41)
--- NOTE | 2017-08-23 09:50 | PN ---
DATE: 08/23/2017 SUBJECTIVE: The patient is seen and examined. The patient is seen for Dr. Abreu while he is away. The patient still complains of cough. No chest pain. No shortness of breath. PHYSICAL EXAMINATION: GENERAL: The patient is in no acute distress. VITAL SIGNS: Stable. HEART: S1 and S2, normal and regular. LUNGS: Good bilateral air exchange. Lungs exam shows still bilateral rhonchi, but no overt wheezing. ABDOMEN: Soft and nontender. No organomegaly. No fluid. Bowel sounds are present and normal. EXTREMITIES: No calf swelling. No tenderness. No acute ischemia. CENTRAL NERVOUS SYSTEM: Essentially unchanged. The patient has with right-sided patch. DIAGNOSTIC DATA: Available diagnostic data reviewed. PLAN: Overall, the patient's general medical condition is stable. Plan as ordered. Pablo Grady MD
[2017-08-23] MEDS: Artificial Tears Opht Soln OU PRN ×2 (10:09→16:59)
[2017-08-23] MEDS: Benzocaine/Menthol (Cepacol) Lozenge PO PRN (12:42)
[2017-08-23] MEDS: MethylPREDNISolone 40 mg Vial IVP SCH ×2 (12:42→21:50)
--- NOTE | 2017-08-23 12:49 | CP.PCM.PN ---
Subjective - Date & Time of Evaluation Date of Evaluation: 08/23/17 Time of Evaluation: 08:00 - Subjective Subjective: difficulty swallowing aspiration precautions for swallowing eval may need GT Objective - Vital Signs/Intake and Output Vital Signs (last 24 hours): Temp Pulse Resp BP Pulse Ox 98.2 F 82 20 100/57 L 97 08/23/17 08:46 08/23/17 09:37 08/23/17 08:46 08/23/17 09:37 08/23/17 08:46 - Medications Medications: Current Medications Acetaminophen (Tylenol 325mg Tab) 650 mg PO QID PRN PRN Reason: Pain, moderate (4-7) Last Admin: 08/17/17 20:19 Dose: 650 mg Acetaminophen (Tylenol 325mg Tab) 650 mg PO Q4 PRN PRN Reason: Fever >100.4 F Last Admin: 08/16/17 14:45 Dose: 650 mg Acetylcysteine (Mucomyst 10% 4ml) 3 ml IH RTID [facility] Last Admin: 08/23/17 09:20 Dose: 3 ml Al Hydrox/Mg Hydrox/Simethicone (Maalox Plus 30 Ml) 30 ml PO Q4 PRN PRN Reason: Indigestion / Heartburn Last Admin: 08/17/17 08:24 Dose: 30 ml Albuterol/Ipratropium (Duoneb 3 Mg/0.5 Mg (3 Ml) Ud) 3 ml INH RQ4 [facility] Last Admin: 08/23/17 12:14 Dose: 3 ml Artificial Tears (Artificial Tears) 2 drop OU Q4 PRN PRN Reason: Dry eyes Last Admin: 08/23/17 10:09 Dose: 2 drop Aspirin (Aspirin Chewable) 81 mg PO DAILY [facility] Last Admin: 08/23/17 09:39 Dose: 81 mg Atenolol (Tenormin) 25 mg PO DAILY [facility] Last Admin: 08/23/17 09:37 Dose: 25 mg Atorvastatin Calcium (Lipitor) 80 mg PO DAILY [facility] Last Admin: 08/23/17 09:38 Dose: 80 mg Benzocaine/Menthol (Cepacol Sore Throat) 1 nick PO Q2 PRN PRN Reason: Sore Throat Last Admin: 08/23/17 12:42 Dose: 1 nick Cholecalciferol (Vitamin D) 2,000 intlu PO DAILY [facility] Last Admin: 08/23/17 09:00 Dose: 2,000 intlu Ciprofloxacin/Dexamethasone (Ciprodex Otic) 4 drop AD BID [facility] Last Admin: 08/23/17 09:40 Dose: 4 drop Docusate Sodium (Colace) 100 mg PO BID [facility] Last Admin: 08/23/17 09:40 Dose: 100 mg Enoxaparin Sodium (Lovenox) 70 mg SC Q12 [facility] PRN Reason: Protocol Last Admin: 08/23/17 09:36 Dose: 70 mg Fluconazole (Diflucan) 200 mg PO DAILY [facility] PRN Reason: Protocol Last Admin: 08/23/17 09:36 Dose: 200 mg Gabapentin (Neurontin) 600 mg PO BID [facility] Last Admin: 08/23/17 09:38 Dose: 600 mg Cefepime HCl 2 gm/ Sodium (Chloride) 100 mls @ 100 mls/hr IVPB Q8 [facility] PRN Reason: Protocol Last Admin: 08/23/17 09:42 Dose: 100 mls/hr Vancomycin HCl 750 mg/ Sodium (Chloride) 250 mls @ 250 mls/hr IVPB Q12H [facility] PRN Reason: Protocol Last Admin: 08/23/17 01:56 Dose: 250 mls/hr Insulin Detemir (Levemir) 35 units SC HS [facility] Last Admin: 08/22/17 22:34 Dose: 35 units Isosorbide Mononitrate (Imdur) 60 mg PO DAILY [facility] Last Admin: 08/23/17 09:38 Dose: 60 mg Metformin HCl (Glucophage) 850 mg PO BIDWM [facility] Last Admin: 08/23/17 09:38 Dose: 850 mg Methylprednisolone (Solu-Medrol) 20 mg IVP Q12 [facility] Last Admin: 08/23/17 12:42 Dose: 20 mg Pantoprazole Sodium (Protonix Ec Tab) 40 mg PO DAILY [facility] Last Admin: 08/23/17 09:36 Dose: 40 mg Polyethylene Glycol (Miralax) 17 gm PO DAILY [facility] Last Admin: 08/23/17 09:41 Dose: 17 gm Sitagliptin Phosphate (Januvia) 100 mg PO DAILY [facility] Last Admin: 08/23/17 09:37 Dose: 100 mg Sodium Chloride ([place] Nasal [place]) 1 sprays SARAH TID PRN PRN Reason: Dry nasal passages Last Admin: 02/11/18 12:21 Dose: 1 spray - Labs Labs: 08/19/17 04:20 08/19/17 04:20 - Constitutional Appears: Non-toxic, Cachectic, Chronically Ill - Head Exam Head Exam: NORMOCEPHALIC - Eye Exam Eye Exam: PERRL. absent: Scleral icterus - ENT Exam ENT Exam: Mucous Membranes Dry - Neck Exam Neck Exam: absent: Lymphadenopathy - Respiratory Exam Respiratory Exam: Decreased Breath Sounds, Rhonchi - Cardiovascular Exam Cardiovascular Exam: REGULAR RHYTHM, +S1, +S2 - GI/Abdominal Exam GI & Abdominal Exam: Distended, Soft. absent: Tenderness - Rectal Exam Rectal Exam: Deferred - Exam Exam: NORMAL INSPECTION - Back Exam Back Exam: absent: CVA tenderness (L), CVA tenderness (R) - Neurological Exam Neurological Exam: Alert, Awake, Oriented x3. absent: CN II-XII Intact Neuro motor strength exam: Left Upper Extremity: 5, Right Upper Extremity: 5, Left Lower Extremity: 5, Right Lower Extremity: 5 - Psychiatric Exam Psychiatric exam: Depressed - Skin Skin Exam: Dry Assessment and Plan (1) DVT prophylaxis Status: Acute (2) Mastoiditis Status: Acute (3) Mild intermittent asthma Status: Acute (4) Diabetes mellitus Status: Chronic (5) Mild persistent asthma Status: Chronic - Assessment and Plan (Free Text) Assessment: renew IV rx GI eval needed await bone scan
[2017-08-23] MEDS: Insulin Detemir 100 Units/ml Inj SC SCH (22:53)
[2017-08-24] MEDS: Albuterol-Ipratrop 3 mg / 0.5 (3 ml) UD INH SCH ×4 (00:26→19:50)
[2017-08-24] MEDS: Cefepime 2 GM in Sodium Chloride 0.9% 100 ML IVPB SCH ×3 (01:50→16:52)
[2017-08-24 06:33] LABS: BASO % 0.1 % (0.0-2.0); HEMOGLOBIN 10.3 g/dL (12.0-18.0); LYMPH # 1.1 K/uL (1.0-4.3); LYMPH % 11.7 % (20.0-40.0); MEAN CELL VOLUME 79.8 fl (80.0-94.0); MEAN CORPUSCULAR HEMOGLOBIN 24.6 pg (27.0-31.0); MEAN CORPUSCULAR HGB CONC 30.8 g/dL (33.0-37.0); MEAN PLATELET VOLUME 8.1 fl (7.2-11.7); MONO # 0.3 K/uL (0.0-0.8); NEUT # 8.2 K/uL (1.8-7.0); NEUT % 85.2 % (50.0-75.0); RBC 4.18 Mil/uL (4.40-5.90); RED CELL DISTRIBUTION WIDTH 17.5 % (11.5-14.5); WHITE BLOOD COUNT 9.6 K/uL (4.8-10.8)
[2017-08-24 07:04] LABS: ALB/GLOB RATIO 1.1 (1.0-2.1); ALBUMIN 3.6 g/dL (3.5-5.0); ALT/SGPT 43 U/L (21-72); AST/SGOT 25 U/L (17-59); BLOOD UREA NITROGEN 15 mg/dl (9-20); CALCIUM 9.6 mg/dL (8.4-10.2); GFR AFRICAN-AMERICAN > 60; GFR NON-AFRICAN AMERICAN > 60
[2017-08-24] MEDS: Acetylcysteine 10% 4 ML IH SCH ×4 (08:00→19:50)
[2017-08-24] MEDS: Enoxaparin 80 mg Syringe SC SCH (09:52)
[2017-08-24] MEDS: Pantoprazole 40 mg EC Tab PO SCH ×2 (09:53→11:09)
[2017-08-24] MEDS: Artificial Tears Opht Soln OU PRN ×2 (09:53→16:45)
[2017-08-24] MEDS: Cholecalciferol 1,000 INTLU TAB PO SCH ×2 (09:54→11:09)
[2017-08-24] MEDS: POLYETHYLENE GLYCOL 3350 17 GM/Dose PACKET PO SCH ×2 (09:56→12:25)
[2017-08-24] MEDS: Ciprofloxacin/Dexamethasone OTIC SUSP AD SCH ×2 (09:57→16:44)
[2017-08-24] MEDS: MethylPREDNISolone 40 mg Vial IVP SCH ×2 (12:31→21:15)
--- NOTE | 2017-08-24 13:55 | CP.PCM.CON ---
History of Present Illness - History of Present Illness History of Present Illness: 66 yo male with DM and currently being treated for mastoiditis, referred for possible PEG insertion due to dysphagia. Patient states he has been having swallowing difficulty for at least 4 months and has lost about 60 lbs. Looking at his plate he consumed just a small quantity of vegetables.. Review of Systems - Constitutional Constitutional: absent: Chills - EENT Eyes: absent: Blurred Vision Ears: absent: Ear Discharge Nose/Mouth/Throat: absent: Nasal Congestion - Cardiovascular Cardiovascular: absent: Chest Pain - Respiratory Respiratory: absent: Dyspnea - Gastrointestinal Gastrointestinal: Dysphagia. absent: Abdominal Pain - Genitourinary Genitourinary: absent: Change in Urinary Stream Past Patient History - Past Medical History & Family History Past Medical History?: Yes - Past Social History Smoking Status: Former Smoker - CARDIAC Hx Hypertension: Yes - ENDOCRINE/METABOLIC Hx Diabetes Mellitus Type 2: Yes - MUSCULOSKELETAL/RHEUMATOLOGICAL Hx Falls: Yes Hx Osteomyelitis: Yes (skull base) - PSYCHIATRIC Hx Substance Use: No Meds Allergies/Adverse Reactions: Allergies Allergy/AdvReac Type Severity Reaction Status Date / Time No Known Allergies Allergy Verified 08/08/17 21:52 - Medications Medications: Current Medications Acetaminophen (Tylenol 325mg Tab) 650 mg PO Q4 PRN PRN Reason: Fever >100.4 F Last Admin: 08/16/17 14:45 Dose: 650 mg Acetylcysteine (Mucomyst 10% 4ml) 3 ml IH RTID [facility] Last Admin: 08/24/17 13:32 Dose: Not Given Al Hydrox/Mg Hydrox/Simethicone (Maalox Plus 30 Ml) 30 ml PO Q4 PRN PRN Reason: Indigestion / Heartburn Last Admin: 08/17/17 08:24 Dose: 30 ml Artificial Tears (Artificial Tears) 2 drop OU Q4 PRN PRN Reason: Dry eyes Last Admin: 08/24/17 09:53 Dose: 2 drop Benzocaine/Menthol (Cepacol Sore Throat) 1 nick PO Q2 PRN PRN Reason: Sore Throat Last Admin: 08/23/17 12:42 Dose: 1 nick Ciprofloxacin/Dexamethasone (Ciprodex Otic) 4 drop AD BID [facility] Last Admin: 08/24/17 09:57 Dose: 4 drop Fluconazole (Diflucan) 200 mg PO DAILY [facility] PRN Reason: Protocol Last Admin: 08/24/17 11:06 Dose: Not Given Gabapentin (Neurontin) 600 mg PO BID [facility] Last Admin: 08/24/17 11:09 Dose: Not Given Cefepime HCl 2 gm/ Sodium (Chloride) 100 mls @ 100 mls/hr IVPB Q8 [facility] PRN Reason: Protocol Last Admin: 08/24/17 09:55 Dose: 100 mls/hr Insulin Detemir (Levemir) 35 units SC HS [facility] Last Admin: 08/23/17 22:53 Dose: 35 units Metformin HCl (Glucophage) 850 mg PO BIDWM [facility] Last Admin: 08/24/17 11:10 Dose: Not Given Methylprednisolone (Solu-Medrol) 20 mg IVP Q12 [facility] Last Admin: 08/24/17 12:31 Dose: 20 mg Oseltamivir Phosphate (Tamiflu Cap) 75 mg PO DAILY [facility] PRN Reason: Protocol Sitagliptin Phosphate (Januvia) 100 mg PO DAILY [facility] Last Admin: 08/24/17 11:10 Dose: Not Given Physical Exam - Constitutional Appears: Older Than Stated Age - Head Exam Head Exam: ATRAUMATIC - Eye Exam Eye Exam: Normal appearance Pupil Exam: PERRL - ENT Exam ENT Exam: Mucous Membranes Moist - Neck Exam Neck exam: Positive for: Normal Inspection - Respiratory Exam Respiratory Exam: NORMAL BREATHING PATTERN - Cardiovascular Exam Cardiovascular Exam: REGULAR RHYTHM, +S1, +S2 - GI/Abdominal Exam GI & Abdominal Exam: Normal Bowel Sounds, Soft. absent: Tenderness - Neurological Exam Additional comments: Right facial droop Results - Vital Signs Recent Vital Signs: Last Vital Signs Temp 98.5 F 08/24/17 08:31 Pulse 71 08/24/17 11:08 Resp 20 08/24/17 08:31 BP 129/71 08/24/17 11:08 Pulse Ox 100 08/24/17 08:31 - Labs Result Diagrams: 08/24/17 05:41 08/24/17 05:41 Labs: Laboratory Results - last 24 hr 08/23/17 08/23/17 08/24/17 15:57 22:33 05:41 WBC 9.6 RBC 4.18 L Hgb 10.3 L Hct 33.3 L MCV 79.8 L MCH 24.6 L MCHC 30.8 L RDW 17.5 H Plt Count 401 H MPV 8.1 Neut % (Auto) 85.2 H Lymph % (Auto) 11.7 L [place] % (Auto) 3.0 Eos % (Auto) 0.0 Baso % (Auto) 0.1 Neut # (Auto) 8.2 H Lymph # (Auto) 1.1 [place] # (Auto) 0.3 Eos # (Auto) 0.0 Baso # (Auto) 0.0 Sodium Potassium Chloride Carbon Dioxide Anion Gap BUN Creatinine Est GFR ( Amer) Est GFR (Non-Af Amer) POC Glucose (mg/dL) 183 H 188 H Random Glucose Calcium Total Bilirubin AST ALT Alkaline Phosphatase Total Protein Albumin Globulin Albumin/Globulin Ratio Vancomycin Trough 08/24/17 08/24/17 08/24/17 05:41 05:41 05:41 WBC RBC Hgb Hct MCV MCH MCHC RDW Plt Count MPV Neut % (Auto) Lymph % (Auto) [place] % (Auto) Eos % (Auto) Baso % (Auto) Neut # (Auto) Lymph # (Auto) [place] # (Auto) Eos # (Auto) Baso # (Auto) Sodium 143 Potassium 3.9 Chloride 99 Carbon Dioxide 30 Anion Gap 18 BUN 15 Creatinine 0.6 L Est GFR ( Amer) > 60 Est GFR (Non-Af Amer) > 60 POC Glucose (mg/dL) 241 H Random Glucose 220 H Calcium 9.6 Total Bilirubin 0.4 AST 25 ALT 43 Alkaline Phosphatase 82 Total Protein 7.0 Albumin 3.6 Globulin 3.4 Albumin/Globulin Ratio 1.1 Vancomycin Trough 25.7 H 08/24/17 11:04 WBC RBC Hgb Hct MCV MCH MCHC RDW Plt Count MPV Neut % (Auto) Lymph % (Auto) [place] % (Auto) Eos % (Auto) Baso % (Auto) Neut # (Auto) Lymph # (Auto) [place] # (Auto) Eos # (Auto) Baso # (Auto) Sodium Potassium Chloride Carbon Dioxide Anion Gap BUN Creatinine Est GFR ( Amer) Est GFR (Non-Af Amer) POC Glucose (mg/dL) 201 H Random Glucose Calcium Total Bilirubin AST ALT Alkaline Phosphatase Total Protein Albumin Globulin Albumin/Globulin Ratio Vancomycin Trough Assessment & Plan (1) Dysphagia Assessment and Plan: Patient apparently consuming little and only soft food. To go for modified barium swallow. Status: Acute (2) Weight loss Assessment and Plan: Even if patient can swallow with difficulty, PEG may be helpful to supplement oral intake, to ensure adequate caloric intake. Calorie count daily. Status: Acute
--- NOTE | 2017-08-24 17:51 | CP.PCM.PN ---
Subjective - Date & Time of Evaluation Date of Evaluation: 08/24/17 Time of Evaluation: 08:00 - Subjective Subjective: seen by Dr Davis for PEG iv Vanco on hold no recent fevers await bone scan Objective - Vital Signs/Intake and Output Vital Signs (last 24 hours): Temp Pulse Resp BP Pulse Ox 98 F 86 20 132/80 96 08/24/17 17:00 08/24/17 17:00 08/24/17 17:00 08/24/17 17:00 08/24/17 17:00 - Medications Medications: Current Medications Acetaminophen (Tylenol 325mg Tab) 650 mg PO Q4 PRN PRN Reason: Fever >100.4 F Last Admin: 08/16/17 14:45 Dose: 650 mg Acetylcysteine (Mucomyst 10% 4ml) 3 ml IH RTID [facility] Last Admin: 08/24/17 13:32 Dose: Not Given Al Hydrox/Mg Hydrox/Simethicone (Maalox Plus 30 Ml) 30 ml PO Q4 PRN PRN Reason: Indigestion / Heartburn Last Admin: 08/17/17 08:24 Dose: 30 ml Artificial Tears (Artificial Tears) 2 drop OU Q4 PRN PRN Reason: Dry eyes Last Admin: 08/24/17 16:45 Dose: 2 drop Benzocaine/Menthol (Cepacol Sore Throat) 1 nick PO Q2 PRN PRN Reason: Sore Throat Last Admin: 08/23/17 12:42 Dose: 1 nick Ciprofloxacin/Dexamethasone (Ciprodex Otic) 4 drop AD BID [facility] Last Admin: 08/24/17 16:44 Dose: 4 drop Fluconazole (Diflucan) 200 mg PO DAILY [facility] PRN Reason: Protocol Last Admin: 08/24/17 11:06 Dose: Not Given Gabapentin (Neurontin) 600 mg PO BID [facility] Last Admin: 08/24/17 16:45 Dose: 600 mg Cefepime HCl 2 gm/ Sodium (Chloride) 100 mls @ 100 mls/hr IVPB Q8 [facility] PRN Reason: Protocol Last Admin: 08/24/17 16:52 Dose: 100 mls/hr Insulin Detemir (Levemir) 35 units SC HS [facility] Last Admin: 08/23/17 22:53 Dose: 35 units Metformin HCl (Glucophage) 850 mg PO BIDWM [facility] Last Admin: 08/24/17 16:45 Dose: 850 mg Methylprednisolone (Solu-Medrol) 20 mg IVP Q12 [facility] Last Admin: 08/24/17 12:31 Dose: 20 mg Oseltamivir Phosphate (Tamiflu Cap) 75 mg PO DAILY [facility] PRN Reason: Protocol Last Admin: 08/24/17 16:46 Dose: 75 mg Sitagliptin Phosphate (Januvia) 100 mg PO DAILY [facility] Last Admin: 08/24/17 11:10 Dose: Not Given - Labs Labs: 08/24/17 05:41 08/24/17 05:41 - Constitutional Appears: Non-toxic, Chronically Ill - Head Exam Head Exam: NORMOCEPHALIC - Eye Exam Eye Exam: absent: Scleral icterus - ENT Exam ENT Exam: Mucous Membranes Dry - Neck Exam Neck Exam: absent: Lymphadenopathy - Respiratory Exam Respiratory Exam: Decreased Breath Sounds - Cardiovascular Exam Cardiovascular Exam: REGULAR RHYTHM - GI/Abdominal Exam GI & Abdominal Exam: Distended, Soft - Rectal Exam Rectal Exam: Deferred - Exam Exam: NORMAL INSPECTION - Extremities Exam Extremities Exam: absent: Pedal Edema - Back Exam Back Exam: absent: CVA tenderness (L), CVA tenderness (R) - Neurological Exam Neurological Exam: Alert, Awake, Oriented x3. absent: CN II-XII Intact - Psychiatric Exam Psychiatric exam: Depressed - Skin Skin Exam: Dry Assessment and Plan (1) DVT prophylaxis Status: Acute (2) Mastoiditis Status: Acute (3) Mild intermittent asthma Status: Acute (4) Diabetes mellitus Status: Chronic (5) Mild persistent asthma Status: Chronic (6) Dysphagia Status: Acute (7) Cachexia Status: Acute (8) Cachexia Status: Acute - Assessment and Plan (Free Text) Assessment: cont iv rx await bone scan
--- NOTE | 2017-08-24 19:40 | NM ---
PROCEDURE: Whole-body Ceretec scan HISTORY: attent to skull; f/u OM COMPARISON: IAC MRI with without contrast 08/15/2017 TECHNIQUE: Following the intravenous administration of 4.0 mCi of Tc 99m Ceretec labeled white blood cells, a nuclear scan of the entire body was performed as requested. There is clinical concern for osteomyelitis of the skullbase. Anterior and posterior whole body images were obtained as well as bilateral lateral frontal and posterior views of the skull. Further oblique imaging of the chest was acquired. FINDINGS: No definite suspicious uptake is identified throughout the calvarium grossly. Nuclear SPECT scan through the temporal bones may have yielded greater detailed evaluation rather than whole-body imaging. Note is made of increased uptake at the right acromioclavicular joint which may be a function of inflammation related to degenerative joint disease or otherwise. Further clinical correlation is advised with x-ray correlation as well. Remaining axial and appendicular bony skeleton appears unremarkable in overall uptake. Note is made of obscuring of the inferior sacrum and the pubic bones by retained isotope within the urinary bladder. Normal uptake is appreciate the liver and the spleen as well as at the left upper extremity injection site. IMPRESSION: No suspicious uptake is appreciated throughout the calvarium or skullbase grossly. Please see discussion above. Nonspecific uptake right acromioclavicular joint appears mild and could reflect inflammation related to degenerative joint disease here. Consider x-ray correlation. Clinical correlation is advised here is well.
--- NOTE | 2017-08-24 20:25 | CP.PCM.PN ---
Subjective - Date & Time of Evaluation Date of Evaluation: 08/22/17 Time of Evaluation: 08:45 - Subjective Subjective: Patient continues to have a lot of cough and has been noted to have increased difficulty of swallowing. Objective - Vital Signs/Intake and Output Vital Signs (last 24 hours): Temp Pulse Resp BP Pulse Ox 98 F 86 20 132/80 96 08/24/17 17:00 08/24/17 17:00 08/24/17 17:00 08/24/17 17:00 08/24/17 17:00 - Medications Medications: Current Medications Acetaminophen (Tylenol 325mg Tab) 650 mg PO Q4 PRN PRN Reason: Fever >100.4 F Last Admin: 08/16/17 14:45 Dose: 650 mg Acetylcysteine (Mucomyst 10% 4ml) 3 ml IH RTID [facility] Last Admin: 08/24/17 19:50 Dose: 3 ml Al Hydrox/Mg Hydrox/Simethicone (Maalox Plus 30 Ml) 30 ml PO Q4 PRN PRN Reason: Indigestion / Heartburn Last Admin: 08/17/17 08:24 Dose: 30 ml Albuterol/Ipratropium (Duoneb 3 Mg/0.5 Mg (3 Ml) Ud) 3 ml INH RQ4 [facility] Last Admin: 08/24/17 19:50 Dose: 3 ml Artificial Tears (Artificial Tears) 2 drop OU Q4 PRN PRN Reason: Dry eyes Last Admin: 08/24/17 16:45 Dose: 2 drop Benzocaine/Menthol (Cepacol Sore Throat) 1 nick PO Q2 PRN PRN Reason: Sore Throat Last Admin: 08/23/17 12:42 Dose: 1 nick Ciprofloxacin/Dexamethasone (Ciprodex Otic) 4 drop AD BID [facility] Last Admin: 08/24/17 16:44 Dose: 4 drop Fluconazole (Diflucan) 200 mg PO DAILY [facility] PRN Reason: Protocol Last Admin: 08/24/17 11:06 Dose: Not Given Gabapentin (Neurontin) 600 mg PO BID [facility] Last Admin: 08/24/17 16:45 Dose: 600 mg Cefepime HCl 2 gm/ Sodium (Chloride) 100 mls @ 100 mls/hr IVPB Q8 [facility] PRN Reason: Protocol Last Admin: 08/24/17 16:52 Dose: 100 mls/hr Insulin Detemir (Levemir) 35 units SC HS [facility] Last Admin: 08/23/17 22:53 Dose: 35 units Metformin HCl (Glucophage) 850 mg PO BIDWM [facility] Last Admin: 08/24/17 16:45 Dose: 850 mg Methylprednisolone (Solu-Medrol) 20 mg IVP Q12 [facility] Last Admin: 08/24/17 12:31 Dose: 20 mg Oseltamivir Phosphate (Tamiflu Cap) 75 mg PO DAILY [facility] PRN Reason: Protocol Last Admin: 08/24/17 16:46 Dose: 75 mg Sitagliptin Phosphate (Januvia) 100 mg PO DAILY [facility] Last Admin: 08/24/17 11:10 Dose: Not Given - Labs Labs: 08/24/17 05:41 08/24/17 05:41 Assessment and Plan (1) Chest pain Status: Acute (2) Hypertension Status: Acute (3) Mastoiditis Status: Acute (4) Diabetes mellitus Status: Chronic (5) COPD (chronic obstructive pulmonary disease) Status: Chronic (6) Bronchitis Status: Acute
--- NOTE | 2017-08-24 20:27 | CP.PCM.PN ---
Subjective - Date & Time of Evaluation Date of Evaluation: 08/24/17 Time of Evaluation: 11:10 - Subjective Subjective: Patient continues to have increased difficulty of swallowing Speech therapy eval suggested pureed diet and thickened liquids Objective - Vital Signs/Intake and Output Vital Signs (last 24 hours): Temp Pulse Resp BP Pulse Ox 98 F 86 20 132/80 96 08/24/17 17:00 08/24/17 17:00 08/24/17 17:00 08/24/17 17:00 08/24/17 17:00 - Medications Medications: Current Medications Acetaminophen (Tylenol 325mg Tab) 650 mg PO Q4 PRN PRN Reason: Fever >100.4 F Last Admin: 08/16/17 14:45 Dose: 650 mg Acetylcysteine (Mucomyst 10% 4ml) 3 ml IH RTID [facility] Last Admin: 08/24/17 19:50 Dose: 3 ml Al Hydrox/Mg Hydrox/Simethicone (Maalox Plus 30 Ml) 30 ml PO Q4 PRN PRN Reason: Indigestion / Heartburn Last Admin: 08/17/17 08:24 Dose: 30 ml Albuterol/Ipratropium (Duoneb 3 Mg/0.5 Mg (3 Ml) Ud) 3 ml INH RQ4 [facility] Last Admin: 08/24/17 19:50 Dose: 3 ml Artificial Tears (Artificial Tears) 2 drop OU Q4 PRN PRN Reason: Dry eyes Last Admin: 08/24/17 16:45 Dose: 2 drop Benzocaine/Menthol (Cepacol Sore Throat) 1 nick PO Q2 PRN PRN Reason: Sore Throat Last Admin: 08/23/17 12:42 Dose: 1 nick Ciprofloxacin/Dexamethasone (Ciprodex Otic) 4 drop AD BID [facility] Last Admin: 08/24/17 16:44 Dose: 4 drop Fluconazole (Diflucan) 200 mg PO DAILY [facility] PRN Reason: Protocol Last Admin: 08/24/17 11:06 Dose: Not Given Gabapentin (Neurontin) 600 mg PO BID [facility] Last Admin: 08/24/17 16:45 Dose: 600 mg Cefepime HCl 2 gm/ Sodium (Chloride) 100 mls @ 100 mls/hr IVPB Q8 [facility] PRN Reason: Protocol Last Admin: 08/24/17 16:52 Dose: 100 mls/hr Insulin Detemir (Levemir) 35 units SC HS [facility] Last Admin: 08/23/17 22:53 Dose: 35 units Metformin HCl (Glucophage) 850 mg PO BIDWM [facility] Last Admin: 08/24/17 16:45 Dose: 850 mg Methylprednisolone (Solu-Medrol) 20 mg IVP Q12 [facility] Last Admin: 08/24/17 12:31 Dose: 20 mg Oseltamivir Phosphate (Tamiflu Cap) 75 mg PO DAILY [facility] PRN Reason: Protocol Last Admin: 08/24/17 16:46 Dose: 75 mg Sitagliptin Phosphate (Januvia) 100 mg PO DAILY [facility] Last Admin: 08/24/17 11:10 Dose: Not Given - Labs Labs: 08/24/17 05:41 08/24/17 05:41 Assessment and Plan (1) Chest pain Status: Acute (2) Hypertension Status: Acute (3) Mastoiditis Status: Acute (4) Diabetes mellitus Status: Chronic (5) COPD (chronic obstructive pulmonary disease) Status: Chronic (6) Bronchitis Status: Acute
[2017-08-24] MEDS: Insulin Detemir 100 Units/ml Inj SC SCH (22:41)
[2017-08-25] MEDS: Albuterol-Ipratrop 3 mg / 0.5 (3 ml) UD INH SCH ×6 (00:20→20:14)
[2017-08-25] MEDS: Cefepime 2 GM in Sodium Chloride 0.9% 100 ML IVPB SCH ×3 (00:36→16:11)
[2017-08-25] MEDS: Acetylcysteine 10% 4 ML IH SCH ×3 (08:10→20:14)
[2017-08-25] MEDS: Ciprofloxacin/Dexamethasone OTIC SUSP AD SCH ×2 (08:34→16:11)
[2017-08-25] MEDS: MethylPREDNISolone 40 mg Vial IVP SCH ×2 (08:35→21:54)
--- NOTE | 2017-08-25 12:11 | CP.PCM.PN ---
Subjective - Date & Time of Evaluation Date of Evaluation: 08/25/17 Time of Evaluation: 10:00 - Subjective Subjective: Stable. C/O cough and secretions. Dysphagia. Evaluated by ST and GI. For barium swallow study today and poss PEG tube insertion. Significant wt loss. Objective - Vital Signs/Intake and Output Vital Signs (last 24 hours): Temp Pulse Resp BP Pulse Ox 98.1 F 70 20 131/75 100 08/25/17 08:16 08/25/17 08:16 08/25/17 08:16 08/25/17 08:16 08/25/17 08:16 Intake and Output: 08/25/17 08/25/17 06:59 18:59 Intake Total 0 Output Total 200 Balance -200 - Medications Medications: Current Medications Acetaminophen (Tylenol 325mg Tab) 650 mg PO Q4 PRN PRN Reason: Fever >100.4 F Last Admin: 08/16/17 14:45 Dose: 650 mg Acetylcysteine (Mucomyst 10% 4ml) 3 ml IH RTID [facility] Last Admin: 08/25/17 11:35 Dose: 2 ml Al Hydrox/Mg Hydrox/Simethicone (Maalox Plus 30 Ml) 30 ml PO Q4 PRN PRN Reason: Indigestion / Heartburn Last Admin: 08/17/17 08:24 Dose: 30 ml Albuterol/Ipratropium (Duoneb 3 Mg/0.5 Mg (3 Ml) Ud) 3 ml INH RQ4 [facility] Last Admin: 08/25/17 11:36 Dose: 3 ml Artificial Tears (Artificial Tears) 2 drop OU Q4 PRN PRN Reason: Dry eyes Last Admin: 08/24/17 16:45 Dose: 2 drop Benzocaine/Menthol (Cepacol Sore Throat) 1 nick PO Q2 PRN PRN Reason: Sore Throat Last Admin: 08/23/17 12:42 Dose: 1 nick Ciprofloxacin/Dexamethasone (Ciprodex Otic) 4 drop AD BID [facility] Last Admin: 08/25/17 08:34 Dose: 4 drop Fluconazole (Diflucan) 200 mg PO DAILY [facility] PRN Reason: Protocol Last Admin: 08/25/17 08:40 Dose: Not Given Gabapentin (Neurontin) 600 mg PO BID [facility] Last Admin: 08/25/17 08:39 Dose: Not Given Cefepime HCl 2 gm/ Sodium (Chloride) 100 mls @ 100 mls/hr IVPB Q8 [facility] PRN Reason: Protocol Last Admin: 08/25/17 08:33 Dose: 100 mls/hr Insulin Detemir (Levemir) 35 units SC HS [facility] Last Admin: 08/24/17 22:41 Dose: 35 units Metformin HCl (Glucophage) 850 mg PO BIDWM [facility] Last Admin: 08/25/17 08:40 Dose: Not Given Methylprednisolone (Solu-Medrol) 20 mg IVP Q12 [facility] Last Admin: 08/25/17 08:35 Dose: 20 mg Oseltamivir Phosphate (Tamiflu Cap) 75 mg PO DAILY [facility] PRN Reason: Protocol Last Admin: 08/25/17 08:39 Dose: Not Given Sitagliptin Phosphate (Januvia) 100 mg PO DAILY [facility] Last Admin: 08/25/17 08:39 Dose: Not Given - Labs Labs: 08/24/17 05:41 08/24/17 05:41 - Constitutional Appears: Non-toxic, Cachectic, Chronically Ill - Eye Exam Eye Exam: PERRL - ENT Exam ENT Exam: Mucous Membranes Moist - Respiratory Exam Respiratory Exam: Respiratory Distress (Mild). absent: Rales, Wheezes - Cardiovascular Exam Cardiovascular Exam: REGULAR RHYTHM, +S1, +S2. absent: Gallop - GI/Abdominal Exam GI & Abdominal Exam: Soft, Normal Bowel Sounds. absent: Tenderness - Neurological Exam Neurological Exam: Alert, Awake, Oriented x3. absent: CN II-XII Intact (Facil palsy) - Psychiatric Exam Psychiatric exam: Normal Affect, Normal Mood - Skin Skin Exam: Warm. absent: Rash Assessment and Plan (1) Facial palsy Status: Acute (2) COPD (chronic obstructive pulmonary disease) Assessment & Plan: Stable. PT/OT/ST Status: Chronic (3) Mastoiditis Assessment & Plan: Increased cough and resp secretions. CXR ordered Status: Acute (4) Pneumonitis Assessment & Plan: Stable. WBC scan reported. Will F/U ID recs Status: Acute (5) Diabetes mellitus Status: Chronic (6) Dysphagia Status: Chronic - Assessment and Plan (Free Text) Assessment: Modified diet GI consulted For barium swallow study today Poss pEG tube insertion Significant Wt loss
--- NOTE | 2017-08-25 13:16 | RAD ---
HISTORY: Cough COMPARISON: Chest radiograph dated 08/16/2017 TECHNIQUE: Chest PA and lateral FINDINGS: LUNGS: No active pulmonary disease. PLEURA: No significant pleural effusion identified. No pneumothorax apparent. CARDIOVASCULAR: Normal. OSSEOUS STRUCTURES: Unchanged. VISUALIZED UPPER ABDOMEN: Normal. OTHER FINDINGS: Left upper extremity PICC, unchanged. IMPRESSION: No active disease.
[2017-08-25] MEDS: Insulin Detemir 100 Units/ml Inj SC SCH (21:55)
[2017-08-26] MEDS: Albuterol-Ipratrop 3 mg / 0.5 (3 ml) UD INH SCH ×8 (00:29→23:57)
[2017-08-26] MEDS: Cefepime 2 GM in Sodium Chloride 0.9% 100 ML IVPB SCH ×3 (00:32→16:28)
[2017-08-26] MEDS: Alum-Mag Hydrox-Simethicone Susp (30 mL) PO PRN ×2 (02:26→21:27)
[2017-08-26] MEDS: Acetylcysteine 10% 4 ML IH SCH ×3 (08:31→19:11)
--- NOTE | 2017-08-26 09:01 | CP.PCM.PN ---
Subjective - Date & Time of Evaluation Date of Evaluation: 08/26/17 Time of Evaluation: 08:57 - Subjective Subjective: Patient eating food with soft consistency. Calorie count underway to see if he' s able to ingest adequate calories. Objective - Vital Signs/Intake and Output Vital Signs (last 24 hours): Temp Pulse Resp BP Pulse Ox 98.6 F 77 20 129/69 99 08/26/17 08:18 08/26/17 08:18 08/26/17 08:18 08/26/17 08:18 08/26/17 08:18 - Medications Medications: Current Medications Acetaminophen (Tylenol 325mg Tab) 650 mg PO Q4 PRN PRN Reason: Fever >100.4 F Last Admin: 08/16/17 14:45 Dose: 650 mg Acetylcysteine (Mucomyst 10% 4ml) 3 ml IH RTID [facility] Last Admin: 08/26/17 08:31 Dose: 3 ml Al Hydrox/Mg Hydrox/Simethicone (Maalox Plus 30 Ml) 30 ml PO Q4 PRN PRN Reason: Indigestion / Heartburn Last Admin: 08/26/17 02:26 Dose: 30 ml Albuterol/Ipratropium (Duoneb 3 Mg/0.5 Mg (3 Ml) Ud) 3 ml INH RQ4 [facility] Last Admin: 08/26/17 08:31 Dose: 3 ml Artificial Tears (Artificial Tears) 2 drop OU Q4 PRN PRN Reason: Dry eyes Last Admin: 08/24/17 16:45 Dose: 2 drop Benzocaine/Menthol (Cepacol Sore Throat) 1 nick PO Q2 PRN PRN Reason: Sore Throat Last Admin: 08/23/17 12:42 Dose: 1 nick Ciprofloxacin/Dexamethasone (Ciprodex Otic) 4 drop AD BID [facility] Last Admin: 08/25/17 16:11 Dose: 4 drop Fluconazole (Diflucan) 200 mg PO DAILY [facility] PRN Reason: Protocol Last Admin: 08/25/17 08:40 Dose: Not Given Gabapentin (Neurontin) 600 mg PO BID [facility] Last Admin: 08/25/17 16:12 Dose: Not Given Cefepime HCl 2 gm/ Sodium (Chloride) 100 mls @ 100 mls/hr IVPB Q8 [facility] PRN Reason: Protocol Last Admin: 08/26/17 00:32 Dose: 100 mls/hr Insulin Detemir (Levemir) 35 units SC HS [facility] Last Admin: 08/25/17 21:55 Dose: 35 units Metformin HCl (Glucophage) 850 mg PO BIDWM [facility] Last Admin: 08/25/17 16:12 Dose: Not Given Methylprednisolone (Solu-Medrol) 20 mg IVP Q12 [facility] Last Admin: 08/25/17 21:54 Dose: 20 mg Oseltamivir Phosphate (Tamiflu Cap) 75 mg PO DAILY [facility] PRN Reason: Protocol Last Admin: 08/25/17 08:39 Dose: Not Given Sitagliptin Phosphate (Januvia) 100 mg PO DAILY [facility] Last Admin: 08/25/17 08:39 Dose: Not Given - Labs Labs: 08/24/17 05:41 08/24/17 05:41 - Head Exam Head Exam: ATRAUMATIC - Eye Exam Eye Exam: Normal appearance Pupil Exam: NORMAL ACCOMODATION - ENT Exam ENT Exam: Normal Exam - Neck Exam Neck Exam: Full ROM - Respiratory Exam Respiratory Exam: Clear to Ausculation Bilateral - Cardiovascular Exam Cardiovascular Exam: REGULAR RHYTHM, +S1, +S2 - GI/Abdominal Exam GI & Abdominal Exam: Soft. absent: Tenderness Assessment and Plan (1) Dysphagia Assessment & Plan: Having modified barium swallow. Awaiting results of calorie count. PEG if unable to swallow adequately or if he is unable to meet his nutritional needs by mouth. Status: Chronic (2) Weight loss Status: Acute
[2017-08-26] MEDS: Ciprofloxacin/Dexamethasone OTIC SUSP AD SCH ×2 (09:52→16:28)
[2017-08-26] MEDS: MethylPREDNISolone 40 mg Vial IVP SCH ×2 (09:56→21:27)
--- NOTE | 2017-08-26 11:36 | CP.PCM.PN ---
Subjective - Date & Time of Evaluation Date of Evaluation: 08/26/17 Time of Evaluation: 10:25 - Subjective Subjective: Patient stable. C/O difficulty swallowing thick liquids. As per nurse patient refusing to take PO meds sometimes. Patient on calorie count. For Barium study today and Poss PEG tube on Thursday if unable to meet nutritional needs. Objective - Vital Signs/Intake and Output Vital Signs (last 24 hours): Temp Pulse Resp BP Pulse Ox 98.6 F 77 20 129/69 99 08/26/17 08:18 08/26/17 08:18 08/26/17 08:18 08/26/17 08:18 08/26/17 08:18 - Medications Medications: Current Medications Acetaminophen (Tylenol 325mg Tab) 650 mg PO Q4 PRN PRN Reason: Fever >100.4 F Last Admin: 08/16/17 14:45 Dose: 650 mg Acetylcysteine (Mucomyst 10% 4ml) 3 ml IH RTID [facility] Last Admin: 08/26/17 08:31 Dose: 3 ml Al Hydrox/Mg Hydrox/Simethicone (Maalox Plus 30 Ml) 30 ml PO Q4 PRN PRN Reason: Indigestion / Heartburn Last Admin: 08/26/17 02:26 Dose: 30 ml Albuterol/Ipratropium (Duoneb 3 Mg/0.5 Mg (3 Ml) Ud) 3 ml INH RQ4 [facility] Last Admin: 08/26/17 08:31 Dose: 3 ml Artificial Tears (Artificial Tears) 2 drop OU Q4 PRN PRN Reason: Dry eyes Last Admin: 08/24/17 16:45 Dose: 2 drop Benzocaine/Menthol (Cepacol Sore Throat) 1 nick PO Q2 PRN PRN Reason: Sore Throat Last Admin: 08/23/17 12:42 Dose: 1 nick Ciprofloxacin/Dexamethasone (Ciprodex Otic) 4 drop AD BID [facility] Last Admin: 08/26/17 09:52 Dose: 4 drop Fluconazole (Diflucan) 200 mg PO DAILY [facility] PRN Reason: Protocol Last Admin: 08/26/17 09:53 Dose: Not Given Gabapentin (Neurontin) 600 mg PO BID [facility] Last Admin: 08/26/17 09:55 Dose: Not Given Cefepime HCl 2 gm/ Sodium (Chloride) 100 mls @ 100 mls/hr IVPB Q8 [facility] PRN Reason: Protocol Last Admin: 08/26/17 09:53 Dose: 100 mls/hr Insulin Detemir (Levemir) 35 units SC HS [facility] Last Admin: 08/25/17 21:55 Dose: 35 units Metformin HCl (Glucophage) 850 mg PO BIDWM [facility] Last Admin: 08/26/17 09:53 Dose: Not Given Methylprednisolone (Solu-Medrol) 20 mg IVP Q12 [facility] Last Admin: 08/26/17 09:56 Dose: 20 mg Oseltamivir Phosphate (Tamiflu Cap) 75 mg PO DAILY [facility] PRN Reason: Protocol Last Admin: 08/26/17 09:56 Dose: Not Given Sitagliptin Phosphate (Januvia) 100 mg PO DAILY [facility] Last Admin: 08/26/17 09:53 Dose: Not Given - Labs Labs: 08/24/17 05:41 08/24/17 05:41 - Constitutional Appears: Non-toxic, Cachectic, Chronically Ill - Eye Exam Eye Exam: PERRL - ENT Exam ENT Exam: Mucous Membranes Moist - Respiratory Exam Respiratory Exam: Clear to Ausculation Bilateral, NORMAL BREATHING PATTERN. absent: Rales, Wheezes - Cardiovascular Exam Cardiovascular Exam: REGULAR RHYTHM, +S1, +S2 - GI/Abdominal Exam GI & Abdominal Exam: Soft, Normal Bowel Sounds. absent: Tenderness - Neurological Exam Neurological Exam: Alert, Awake, Motor Sensory Deficit (Facial palsy) - Skin Skin Exam: Normal Color, Warm Assessment and Plan - Assessment and Plan (Free Text) Assessment: (1) Facial palsy Status: Acute. (2) COPD (chronic obstructive pulmonary disease) Assessment & Plan: Stable. PT/OT/ST Status: Chronic (3) Mastoiditis Assessment & Plan: stable. C/W IV abx Status: Acute (4) Diabetes mellitus Status: Chronic C/W current plan (5) Dysphagia On calorie count and modified diet Wt loss GI consulted Barium study today Poss PEG tube
--- NOTE | 2017-08-26 12:29 | CP.PCM.PN ---
Subjective - Date & Time of Evaluation Date of Evaluation: 08/26/17 Time of Evaluation: 10:00 - Subjective Subjective: EVENTS NOTED RX IN PROGRESS Objective - Vital Signs/Intake and Output Vital Signs (last 24 hours): Temp Pulse Resp BP Pulse Ox 98.6 F 77 20 129/69 99 08/26/17 08:18 08/26/17 08:18 08/26/17 08:18 08/26/17 08:18 08/26/17 08:18 - Medications Medications: Current Medications Acetaminophen (Tylenol 325mg Tab) 650 mg PO Q4 PRN PRN Reason: Fever >100.4 F Last Admin: 08/16/17 14:45 Dose: 650 mg Acetylcysteine (Mucomyst 10% 4ml) 3 ml IH RTID [facility] Last Admin: 08/26/17 08:31 Dose: 3 ml Al Hydrox/Mg Hydrox/Simethicone (Maalox Plus 30 Ml) 30 ml PO Q4 PRN PRN Reason: Indigestion / Heartburn Last Admin: 08/26/17 02:26 Dose: 30 ml Albuterol/Ipratropium (Duoneb 3 Mg/0.5 Mg (3 Ml) Ud) 3 ml INH RQ4 [facility] Last Admin: 08/26/17 11:56 Dose: 3 ml Artificial Tears (Artificial Tears) 2 drop OU Q4 PRN PRN Reason: Dry eyes Last Admin: 08/24/17 16:45 Dose: 2 drop Benzocaine/Menthol (Cepacol Sore Throat) 1 nick PO Q2 PRN PRN Reason: Sore Throat Last Admin: 08/23/17 12:42 Dose: 1 nick Ciprofloxacin/Dexamethasone (Ciprodex Otic) 4 drop AD BID [facility] Last Admin: 08/26/17 09:52 Dose: 4 drop Fluconazole (Diflucan) 200 mg PO DAILY [facility] PRN Reason: Protocol Last Admin: 08/26/17 09:53 Dose: Not Given Gabapentin (Neurontin) 600 mg PO BID [facility] Last Admin: 08/26/17 09:55 Dose: Not Given Cefepime HCl 2 gm/ Sodium (Chloride) 100 mls @ 100 mls/hr IVPB Q8 [facility] PRN Reason: Protocol Last Admin: 08/26/17 09:53 Dose: 100 mls/hr Insulin Detemir (Levemir) 35 units SC HS [facility] Last Admin: 08/25/17 21:55 Dose: 35 units Insulin Human Regular (Humulin R) 0 units SC ACHS [facility] PRN Reason: Protocol Metformin HCl (Glucophage) 850 mg PO BIDWM [facility] Last Admin: 08/26/17 09:53 Dose: Not Given Methylprednisolone (Solu-Medrol) 20 mg IVP Q12 [facility] Last Admin: 08/26/17 09:56 Dose: 20 mg Oseltamivir Phosphate (Tamiflu Cap) 75 mg PO DAILY [facility] PRN Reason: Protocol Last Admin: 08/26/17 09:56 Dose: Not Given Sitagliptin Phosphate (Januvia) 100 mg PO DAILY [facility] Last Admin: 08/26/17 09:53 Dose: Not Given - Labs Labs: 08/24/17 05:41 08/24/17 05:41 - Constitutional Appears: Non-toxic, Cachectic, Chronically Ill - Head Exam Head Exam: NORMOCEPHALIC - Eye Exam Eye Exam: PERRL. absent: Scleral icterus - ENT Exam ENT Exam: Mucous Membranes Dry - Neck Exam Neck Exam: absent: Lymphadenopathy - Respiratory Exam Respiratory Exam: Decreased Breath Sounds - Cardiovascular Exam Cardiovascular Exam: REGULAR RHYTHM - GI/Abdominal Exam GI & Abdominal Exam: Distended - Rectal Exam Rectal Exam: Deferred - Exam Exam: NORMAL INSPECTION Assessment and Plan (1) DVT prophylaxis Status: Acute (2) Mastoiditis Status: Acute (3) Mild intermittent asthma Status: Acute (4) Diabetes mellitus Status: Chronic (5) Mild persistent asthma Status: Chronic (6) Dysphagia Status: Acute (7) Cachexia Status: Acute (8) Cachexia Status: Acute
[2017-08-26] MEDS: Insulin Regular 100 units/ml SC SCH ×3 (12:54→21:28)
[2017-08-26] MEDS ORDERED: Barium Sulfate Susp 0.1% w/v, 0.1% w/w 450 mL Bottle PO ONE (13:58)
[2017-08-26] MEDS: Insulin Detemir 100 Units/ml Inj SC SCH (21:28)
[2017-08-27] MEDS: Cefepime 2 GM in Sodium Chloride 0.9% 100 ML IVPB SCH ×3 (01:39→17:26)
[2017-08-27] MEDS: Alum-Mag Hydrox-Simethicone Susp (30 mL) PO PRN ×2 (01:43→15:27)
[2017-08-27] MEDS: Albuterol-Ipratrop 3 mg / 0.5 (3 ml) UD INH SCH ×6 (04:15→23:02)
[2017-08-27 07:27] LABS: HEMOGLOBIN 10.1 g/dL (12.0-18.0); MEAN CELL VOLUME 79.7 fl (80.0-94.0); MEAN CORPUSCULAR HEMOGLOBIN 25.6 pg (27.0-31.0); MEAN CORPUSCULAR HGB CONC 32.1 g/dL (33.0-37.0); RBC 3.95 Mil/uL (4.40-5.90); RED CELL DISTRIBUTION WIDTH 16.8 % (11.5-14.5); WHITE BLOOD COUNT 7.3 K/uL (4.8-10.8)
[2017-08-27 07:40] LABS: BLOOD UREA NITROGEN 17 mg/dl (9-20); GFR AFRICAN-AMERICAN > 60; GFR NON-AFRICAN AMERICAN > 60
[2017-08-27] MEDS: Acetylcysteine 10% 4 ML IH SCH ×3 (08:24→19:57)
--- NOTE | 2017-08-27 08:33 | RAD ---
PROCEDURE: HISTORY: Difficulty swallowing COMPARISON: None TECHNIQUE: Under intermittent fluoroscopic monitoring with the aid of the speech therapist various materials barium laden were administered to the patient Time was 281 seconds and the cumulative dose was 14.02 MGy FINDINGS: Preliminary cutter helper images show tears C4-5 spondylosis and intervening disc space narrowing Puree with barium. Mild pooling in the vallecula and piriform sinuses was noted. No michael laryngeal penetration appreciated. [place]ink[place] with barium: Similar mild pooling in the vallecula and piriform sinuses was noted. No michael laryngeal penetration appreciated Thin liquid with barium: Mild pooling in the vallecula and piriform sinuses was noted. Minimal penetration noted. Barium laden taste on the cracker showed mild pooling in the valleculae. Very minimal penetration appeared to have occurred. Chin-tuck another neck maneuvers were attempted: No complete cessation of this minimal penetration occurrence was appreciated. Multiple swallows made and sounds of" throat clearing " occurred. No gross coughing. No tracheal aspiration appreciated IMPRESSION: Mild pooling in the vallecula and piriform sinuses with the various materials with very minimal to minimal penetration occurring at described above.
[2017-08-27] MEDS: Insulin Regular 100 units/ml SC SCH ×4 (09:33→21:49)
[2017-08-27] MEDS: Ciprofloxacin/Dexamethasone OTIC SUSP AD SCH ×2 (09:33→17:28)
[2017-08-27] MEDS: MethylPREDNISolone 40 mg Vial IVP SCH ×2 (09:34→21:41)
[2017-08-27] MEDS: Artificial Tears Opht Soln OU PRN (10:58)
[2017-08-27] MEDS: Insulin Detemir 100 Units/ml Inj SC SCH (21:50)
--- NOTE | 2017-08-27 23:30 | CP.PCM.PN ---
Subjective - Date & Time of Evaluation Date of Evaluation: 08/27/17 Time of Evaluation: 15:00 - Subjective Subjective: Appears to be eating a little more. having foods with soft consistency. Objective - Vital Signs/Intake and Output Vital Signs (last 24 hours): Temp Pulse Resp BP Pulse Ox 98.4 F 93 H 20 125/71 94 L 08/27/17 16:14 08/27/17 16:14 08/27/17 16:14 08/27/17 16:14 08/27/17 16:14 Intake and Output: 08/27/17 08/28/17 18:59 06:59 Intake Total 100 Balance 100 - Medications Medications: Current Medications Acetaminophen (Tylenol 325mg Tab) 650 mg PO Q4 PRN PRN Reason: Fever >100.4 F Last Admin: 08/16/17 14:45 Dose: 650 mg Acetylcysteine (Mucomyst 10% 4ml) 3 ml IH RTID [facility] Last Admin: 08/27/17 19:57 Dose: 3 ml Al Hydrox/Mg Hydrox/Simethicone (Maalox Plus 30 Ml) 30 ml PO Q4 PRN PRN Reason: Indigestion / Heartburn Last Admin: 08/27/17 15:27 Dose: 30 ml Albuterol/Ipratropium (Duoneb 3 Mg/0.5 Mg (3 Ml) Ud) 3 ml INH RQ4 [facility] Last Admin: 08/27/17 23:02 Dose: 3 ml Artificial Tears (Artificial Tears) 2 drop OU Q4 PRN PRN Reason: Dry eyes Last Admin: 08/27/17 10:58 Dose: 2 drop Benzocaine/Menthol (Cepacol Sore Throat) 1 nick PO Q2 PRN PRN Reason: Sore Throat Last Admin: 08/23/17 12:42 Dose: 1 nick Ciprofloxacin/Dexamethasone (Ciprodex Otic) 4 drop AD BID [facility] Last Admin: 08/27/17 17:28 Dose: 4 drop Enoxaparin Sodium (Lovenox) 40 mg SC DAILY [facility] PRN Reason: Protocol Fluconazole (Diflucan) 200 mg PO DAILY [facility] PRN Reason: Protocol Last Admin: 08/27/17 17:27 Dose: 200 mg Gabapentin (Neurontin) 600 mg PO BID [facility] Last Admin: 08/27/17 17:27 Dose: 600 mg Cefepime HCl 2 gm/ Sodium (Chloride) 100 mls @ 100 mls/hr IVPB Q8 [facility] PRN Reason: Protocol Last Admin: 08/27/17 17:26 Dose: 100 mls/hr Insulin Detemir (Levemir) 35 units SC HS [facility] Last Admin: 08/27/17 21:50 Dose: 35 units Insulin Human Regular (Humulin R) 0 units SC ACHS [facility] PRN Reason: Protocol Last Admin: 08/27/17 21:49 Dose: Not Given Metformin HCl (Glucophage) 850 mg PO BIDWM [facility] Last Admin: 08/27/17 17:27 Dose: 850 mg Methylprednisolone (Solu-Medrol) 20 mg IVP Q12 [facility] Last Admin: 08/27/17 21:41 Dose: 20 mg Oseltamivir Phosphate (Tamiflu Cap) 75 mg PO DAILY [facility] PRN Reason: Protocol Last Admin: 08/27/17 09:27 Dose: Not Given Sitagliptin Phosphate (Januvia) 100 mg PO DAILY [facility] Last Admin: 08/27/17 09:27 Dose: Not Given - Labs Labs: 08/27/17 06:00 08/27/17 06:00 - Head Exam Head Exam: ATRAUMATIC - Eye Exam Eye Exam: Normal appearance - ENT Exam ENT Exam: Mucous Membranes Moist - Neck Exam Neck Exam: Full ROM - Respiratory Exam Respiratory Exam: Clear to Ausculation Bilateral - Cardiovascular Exam Cardiovascular Exam: REGULAR RHYTHM - GI/Abdominal Exam GI & Abdominal Exam: Soft. absent: Tenderness - Rectal Exam Rectal Exam: Deferred Assessment and Plan (1) Dysphagia Assessment & Plan: Able to swallow small amounts. Will continue calorie count to see if his caloric consumption is adequate Status: Chronic (2) Weight loss Status: Acute
[2017-08-28] MEDS: Alum-Mag Hydrox-Simethicone Susp (30 mL) PO PRN ×3 (00:43→22:42)
[2017-08-28] MEDS: Cefepime 2 GM in Sodium Chloride 0.9% 100 ML IVPB SCH ×3 (00:44→17:23)
[2017-08-28] MEDS: Artificial Tears Opht Soln OU PRN ×2 (00:46→10:20)
[2017-08-28] MEDS: Albuterol-Ipratrop 3 mg / 0.5 (3 ml) UD INH SCH ×6 (03:38→23:45)
[2017-08-28] MEDS: Acetylcysteine 10% 4 ML IH SCH ×3 (07:39→19:44)
[2017-08-28] MEDS: Insulin Regular 100 units/ml SC SCH ×4 (09:50→22:00)
[2017-08-28] MEDS: Ciprofloxacin/Dexamethasone OTIC SUSP AD SCH ×2 (10:00→17:21)
[2017-08-28] MEDS: MethylPREDNISolone 40 mg Vial IVP SCH (10:00)
[2017-08-28] MEDS: Enoxaparin 40 mg Syringe SC SCH (10:01)
--- NOTE | 2017-08-28 13:39 | CP.PCM.PN ---
Subjective - Date & Time of Evaluation Date of Evaluation: 08/28/17 Time of Evaluation: 08:00 - Subjective Subjective: events noted iv rx in progress Objective - Vital Signs/Intake and Output Vital Signs (last 24 hours): Temp Pulse Resp BP Pulse Ox 97.8 F 97 H 20 118/72 98 08/28/17 08:06 08/28/17 08:06 08/28/17 08:06 08/28/17 08:06 08/28/17 08:06 - Medications Medications: Current Medications Acetaminophen (Tylenol 325mg Tab) 650 mg PO Q4 PRN PRN Reason: Fever >100.4 F Last Admin: 08/16/17 14:45 Dose: 650 mg Acetylcysteine (Mucomyst 10% 4ml) 3 ml IH RTID [facility] Last Admin: 08/28/17 11:28 Dose: 3 ml Al Hydrox/Mg Hydrox/Simethicone (Maalox Plus 30 Ml) 30 ml PO Q4 PRN PRN Reason: Indigestion / Heartburn Last Admin: 08/28/17 00:43 Dose: 30 ml Albuterol/Ipratropium (Duoneb 3 Mg/0.5 Mg (3 Ml) Ud) 3 ml INH RQ4 [facility] Last Admin: 08/28/17 11:28 Dose: 3 ml Artificial Tears (Artificial Tears) 2 drop OU Q4 PRN PRN Reason: Dry eyes Last Admin: 08/28/17 10:20 Dose: 2 drop Benzocaine/Menthol (Cepacol Sore Throat) 1 nick PO Q2 PRN PRN Reason: Sore Throat Last Admin: 08/23/17 12:42 Dose: 1 nick Ciprofloxacin/Dexamethasone (Ciprodex Otic) 4 drop AD BID [facility] Last Admin: 08/28/17 10:00 Dose: 4 drop Enoxaparin Sodium (Lovenox) 40 mg SC DAILY [facility] PRN Reason: Protocol Last Admin: 08/28/17 10:01 Dose: 40 mg Fluconazole (Diflucan) 200 mg PO DAILY [facility] PRN Reason: Protocol Last Admin: 08/28/17 10:01 Dose: 200 mg Gabapentin (Neurontin) 600 mg PO BID [facility] Last Admin: 08/28/17 10:00 Dose: 600 mg Cefepime HCl 2 gm/ Sodium (Chloride) 100 mls @ 100 mls/hr IVPB Q8 [facility] PRN Reason: Protocol Last Admin: 08/28/17 09:51 Dose: 100 mls/hr Insulin Detemir (Levemir) 35 units SC HS [facility] Last Admin: 08/27/17 21:50 Dose: 35 units Insulin Human Regular (Humulin R) 0 units SC ACHS [facility] PRN Reason: Protocol Last Admin: 08/28/17 13:02 Dose: 5 u Metformin HCl (Glucophage) 850 mg PO BIDWM [facility] Last Admin: 08/28/17 10:02 Dose: 850 mg Oseltamivir Phosphate (Tamiflu Cap) 75 mg PO DAILY [facility] PRN Reason: Protocol Last Admin: 08/28/17 10:01 Dose: 75 mg Prednisone (Prednisone Tab) 20 mg PO DAILY [facility] Sitagliptin Phosphate (Januvia) 100 mg PO DAILY [facility] Last Admin: 08/28/17 10:01 Dose: 100 mg - Labs Labs: 08/27/17 06:00 08/27/17 06:00 - Constitutional Appears: Non-toxic, Chronically Ill - Head Exam Head Exam: NORMOCEPHALIC - Eye Exam Eye Exam: absent: Scleral icterus - ENT Exam ENT Exam: Mucous Membranes Dry - Neck Exam Neck Exam: absent: Lymphadenopathy - Respiratory Exam Respiratory Exam: Decreased Breath Sounds, Rhonchi - Cardiovascular Exam Cardiovascular Exam: REGULAR RHYTHM, +S1, +S2 - GI/Abdominal Exam GI & Abdominal Exam: Distended, Soft. absent: Tenderness - Rectal Exam Rectal Exam: Deferred - Exam Exam: NORMAL INSPECTION - Extremities Exam Extremities Exam: absent: Pedal Edema - Back Exam Back Exam: absent: CVA tenderness (L), CVA tenderness (R) - Neurological Exam Neurological Exam: Alert, Awake, Oriented x3. absent: CN II-XII Intact - Psychiatric Exam Psychiatric exam: Depressed - Skin Skin Exam: Dry Assessment and Plan (1) DVT prophylaxis Status: Acute (2) Mastoiditis Status: Acute (3) Mild intermittent asthma Status: Acute (4) Diabetes mellitus Status: Chronic (5) Mild persistent asthma Status: Chronic (6) Dysphagia Status: Acute (7) Cachexia Status: Acute (8) Cachexia Status: Acute
[2017-08-28] MEDS: Insulin Detemir 100 Units/ml Inj SC SCH (22:42)
[2017-08-29] MEDS: Cefepime 2 GM in Sodium Chloride 0.9% 100 ML IVPB SCH ×3 (01:55→16:42)
[2017-08-29] MEDS: Albuterol-Ipratrop 3 mg / 0.5 (3 ml) UD INH SCH ×6 (04:35→23:54)
[2017-08-29] MEDS: Acetylcysteine 10% 4 ML IH SCH ×3 (07:26→19:12)
[2017-08-29] MEDS: Enoxaparin 40 mg Syringe SC SCH (08:42)
[2017-08-29] MEDS: Ciprofloxacin/Dexamethasone OTIC SUSP AD SCH ×2 (08:42→16:43)
[2017-08-29] MEDS: Insulin Regular 100 units/ml SC SCH ×4 (08:43→22:17)
[2017-08-29] MEDS: Artificial Tears Opht Soln OU PRN (12:51)
--- NOTE | 2017-08-29 15:49 | CP.PCM.PN ---
Subjective - Date & Time of Evaluation Date of Evaluation: 08/27/17 Time of Evaluation: 10:30 - Subjective Subjective: Patient continues to have excessive cough and muus production Has no fever Has no headaches Very poor intake. Objective - Vital Signs/Intake and Output Vital Signs (last 24 hours): Temp Pulse Resp BP Pulse Ox 97.9 F 84 20 122/70 100 08/29/17 09:00 08/29/17 09:00 08/29/17 09:00 08/29/17 09:00 08/29/17 09:00 Intake and Output: 08/29/17 08/29/17 06:59 18:59 Intake Total 25 25 Balance 25 25 - Medications Medications: Current Medications Acetaminophen (Tylenol 325mg Tab) 650 mg PO Q4 PRN PRN Reason: Fever >100.4 F Last Admin: 08/16/17 14:45 Dose: 650 mg Acetylcysteine (Mucomyst 10% 4ml) 3 ml IH RTID [facility] Last Admin: 08/29/17 11:31 Dose: 3 ml Al Hydrox/Mg Hydrox/Simethicone (Maalox Plus 30 Ml) 30 ml PO Q4 PRN PRN Reason: Indigestion / Heartburn Last Admin: 08/28/17 22:42 Dose: 30 ml Albuterol/Ipratropium (Duoneb 3 Mg/0.5 Mg (3 Ml) Ud) 3 ml INH RQ4 [facility] Last Admin: 08/29/17 15:12 Dose: 3 ml Artificial Tears (Artificial Tears) 2 drop OU Q4 PRN PRN Reason: Dry eyes Last Admin: 08/29/17 12:51 Dose: 2 drop Benzocaine/Menthol (Cepacol Sore Throat) 1 nick PO Q2 PRN PRN Reason: Sore Throat Last Admin: 08/23/17 12:42 Dose: 1 nick Ciprofloxacin/Dexamethasone (Ciprodex Otic) 4 drop AD BID [facility] Last Admin: 08/29/17 08:42 Dose: 4 drop Enoxaparin Sodium (Lovenox) 40 mg SC DAILY [facility] PRN Reason: Protocol Last Admin: 08/29/17 08:42 Dose: 40 mg Fluconazole (Diflucan) 200 mg PO DAILY [facility] PRN Reason: Protocol Last Admin: 08/29/17 08:43 Dose: 200 mg Gabapentin (Neurontin) 600 mg PO BID [facility] Last Admin: 08/29/17 12:52 Dose: 600 mg Cefepime HCl 2 gm/ Sodium (Chloride) 100 mls @ 100 mls/hr IVPB Q8 [facility] PRN Reason: Protocol Last Admin: 08/29/17 08:47 Dose: 100 mls/hr Insulin Detemir (Levemir) 35 units SC HS [facility] Last Admin: 08/28/17 22:42 Dose: 35 units Insulin Human Regular (Humulin R) 0 units SC ACHS [facility] PRN Reason: Protocol Last Admin: 08/29/17 12:51 Dose: 2 u Metformin HCl (Glucophage) 850 mg PO BIDWM [facility] Last Admin: 08/29/17 08:43 Dose: 850 mg Prednisone (Prednisone Tab) 20 mg PO DAILY [facility] Last Admin: 08/29/17 08:44 Dose: 20 mg Sitagliptin Phosphate (Januvia) 100 mg PO DAILY [facility] Last Admin: 08/29/17 08:44 Dose: 100 mg - Labs Labs: 08/27/17 06:00 08/27/17 06:00 - Head Exam Head Exam: NORMAL INSPECTION - Eye Exam Eye Exam: Normal appearance - ENT Exam ENT Exam: Mucous Membranes Moist - Respiratory Exam Respiratory Exam: Rhonchi - Cardiovascular Exam Cardiovascular Exam: REGULAR RHYTHM - GI/Abdominal Exam GI & Abdominal Exam: Normal Bowel Sounds Assessment and Plan (1) Chest pain Status: Acute (2) Hypertension Status: Acute (3) Mastoiditis Status: Acute (4) Diabetes mellitus Status: Chronic (5) COPD (chronic obstructive pulmonary disease) Status: Chronic (6) Bronchitis Status: Acute - Assessment and Plan (Free Text) Plan: Cont nebulizer treatment Cont meds Cont meds follow up with GI.
--- NOTE | 2017-08-29 15:51 | CP.PCM.PN ---
Subjective - Date & Time of Evaluation Date of Evaluation: 08/28/17 Time of Evaluation: 10:00 - Subjective Subjective: Patient remains stable but still coughs a lot Has no chest pain or SOB Has no fever. Objective - Vital Signs/Intake and Output Vital Signs (last 24 hours): Temp Pulse Resp BP Pulse Ox 97.9 F 84 20 122/70 100 08/29/17 09:00 08/29/17 09:00 08/29/17 09:00 08/29/17 09:00 08/29/17 09:00 Intake and Output: 08/29/17 08/29/17 06:59 18:59 Intake Total 25 25 Balance 25 25 - Medications Medications: Current Medications Acetaminophen (Tylenol 325mg Tab) 650 mg PO Q4 PRN PRN Reason: Fever >100.4 F Last Admin: 08/16/17 14:45 Dose: 650 mg Acetylcysteine (Mucomyst 10% 4ml) 3 ml IH RTID [facility] Last Admin: 08/29/17 11:31 Dose: 3 ml Al Hydrox/Mg Hydrox/Simethicone (Maalox Plus 30 Ml) 30 ml PO Q4 PRN PRN Reason: Indigestion / Heartburn Last Admin: 08/28/17 22:42 Dose: 30 ml Albuterol/Ipratropium (Duoneb 3 Mg/0.5 Mg (3 Ml) Ud) 3 ml INH RQ4 [facility] Last Admin: 08/29/17 15:12 Dose: 3 ml Artificial Tears (Artificial Tears) 2 drop OU Q4 PRN PRN Reason: Dry eyes Last Admin: 08/29/17 12:51 Dose: 2 drop Benzocaine/Menthol (Cepacol Sore Throat) 1 nick PO Q2 PRN PRN Reason: Sore Throat Last Admin: 08/23/17 12:42 Dose: 1 nick Ciprofloxacin/Dexamethasone (Ciprodex Otic) 4 drop AD BID [facility] Last Admin: 08/29/17 08:42 Dose: 4 drop Enoxaparin Sodium (Lovenox) 40 mg SC DAILY [facility] PRN Reason: Protocol Last Admin: 08/29/17 08:42 Dose: 40 mg Fluconazole (Diflucan) 200 mg PO DAILY [facility] PRN Reason: Protocol Last Admin: 08/29/17 08:43 Dose: 200 mg Gabapentin (Neurontin) 600 mg PO BID [facility] Last Admin: 08/29/17 12:52 Dose: 600 mg Cefepime HCl 2 gm/ Sodium (Chloride) 100 mls @ 100 mls/hr IVPB Q8 [facility] PRN Reason: Protocol Last Admin: 08/29/17 08:47 Dose: 100 mls/hr Insulin Detemir (Levemir) 35 units SC HS [facility] Last Admin: 08/28/17 22:42 Dose: 35 units Insulin Human Regular (Humulin R) 0 units SC ACHS [facility] PRN Reason: Protocol Last Admin: 08/29/17 12:51 Dose: 2 u Metformin HCl (Glucophage) 850 mg PO BIDWM [facility] Last Admin: 08/29/17 08:43 Dose: 850 mg Prednisone (Prednisone Tab) 20 mg PO DAILY [facility] Last Admin: 08/29/17 08:44 Dose: 20 mg Sitagliptin Phosphate (Januvia) 100 mg PO DAILY [facility] Last Admin: 08/29/17 08:44 Dose: 100 mg - Labs Labs: 08/27/17 06:00 08/27/17 06:00 - Head Exam Head Exam: NORMAL INSPECTION - Eye Exam Eye Exam: Normal appearance - ENT Exam ENT Exam: Mucous Membranes Moist - Respiratory Exam Respiratory Exam: Rhonchi - Cardiovascular Exam Cardiovascular Exam: REGULAR RHYTHM - GI/Abdominal Exam GI & Abdominal Exam: Normal Bowel Sounds Assessment and Plan (1) Chest pain Status: Acute (2) Hypertension Status: Acute (3) Mastoiditis Status: Acute (4) Diabetes mellitus Status: Chronic (5) COPD (chronic obstructive pulmonary disease) Status: Chronic (6) Bronchitis Status: Acute - Assessment and Plan (Free Text) Plan: Cont meds Cont tx Cont PT follow up with case mgt re discharge plans
--- NOTE | 2017-08-29 15:53 | CP.PCM.PN ---
Subjective - Date & Time of Evaluation Date of Evaluation: 08/29/17 Time of Evaluation: 15:51 - Subjective Subjective: Patient continues to do well Has no chest pain or SOB Has better intake Still with a lot of mucus production when he coughs, Has no fever. Objective - Vital Signs/Intake and Output Vital Signs (last 24 hours): Temp Pulse Resp BP Pulse Ox 97.9 F 84 20 122/70 100 08/29/17 09:00 08/29/17 09:00 08/29/17 09:00 08/29/17 09:00 08/29/17 09:00 Intake and Output: 08/29/17 08/29/17 06:59 18:59 Intake Total 25 25 Balance 25 25 - Medications Medications: Current Medications Acetaminophen (Tylenol 325mg Tab) 650 mg PO Q4 PRN PRN Reason: Fever >100.4 F Last Admin: 08/16/17 14:45 Dose: 650 mg Acetylcysteine (Mucomyst 10% 4ml) 3 ml IH RTID [facility] Last Admin: 08/29/17 11:31 Dose: 3 ml Al Hydrox/Mg Hydrox/Simethicone (Maalox Plus 30 Ml) 30 ml PO Q4 PRN PRN Reason: Indigestion / Heartburn Last Admin: 08/28/17 22:42 Dose: 30 ml Albuterol/Ipratropium (Duoneb 3 Mg/0.5 Mg (3 Ml) Ud) 3 ml INH RQ4 [facility] Last Admin: 08/29/17 15:12 Dose: 3 ml Artificial Tears (Artificial Tears) 2 drop OU Q4 PRN PRN Reason: Dry eyes Last Admin: 08/29/17 12:51 Dose: 2 drop Benzocaine/Menthol (Cepacol Sore Throat) 1 nick PO Q2 PRN PRN Reason: Sore Throat Last Admin: 08/23/17 12:42 Dose: 1 nick Ciprofloxacin/Dexamethasone (Ciprodex Otic) 4 drop AD BID [facility] Last Admin: 08/29/17 08:42 Dose: 4 drop Enoxaparin Sodium (Lovenox) 40 mg SC DAILY [facility] PRN Reason: Protocol Last Admin: 08/29/17 08:42 Dose: 40 mg Fluconazole (Diflucan) 200 mg PO DAILY [facility] PRN Reason: Protocol Last Admin: 08/29/17 08:43 Dose: 200 mg Gabapentin (Neurontin) 600 mg PO BID [facility] Last Admin: 08/29/17 12:52 Dose: 600 mg Cefepime HCl 2 gm/ Sodium (Chloride) 100 mls @ 100 mls/hr IVPB Q8 [facility] PRN Reason: Protocol Last Admin: 08/29/17 08:47 Dose: 100 mls/hr Insulin Detemir (Levemir) 35 units SC HS [facility] Last Admin: 08/28/17 22:42 Dose: 35 units Insulin Human Regular (Humulin R) 0 units SC ACHS [facility] PRN Reason: Protocol Last Admin: 08/29/17 12:51 Dose: 2 u Metformin HCl (Glucophage) 850 mg PO BIDWM [facility] Last Admin: 08/29/17 08:43 Dose: 850 mg Prednisone (Prednisone Tab) 20 mg PO DAILY [facility] Last Admin: 08/29/17 08:44 Dose: 20 mg Sitagliptin Phosphate (Januvia) 100 mg PO DAILY [facility] Last Admin: 08/29/17 08:44 Dose: 100 mg - Labs Labs: 08/27/17 06:00 08/27/17 06:00 - Head Exam Head Exam: NORMAL INSPECTION - Eye Exam Eye Exam: Normal appearance - ENT Exam ENT Exam: Mucous Membranes Moist - Respiratory Exam Respiratory Exam: Decreased Breath Sounds, Rhonchi - Cardiovascular Exam Cardiovascular Exam: REGULAR RHYTHM - GI/Abdominal Exam GI & Abdominal Exam: Normal Bowel Sounds Assessment and Plan (1) Chest pain Status: Acute (2) Hypertension Status: Acute (3) Mastoiditis Status: Acute (4) Diabetes mellitus Status: Chronic (5) COPD (chronic obstructive pulmonary disease) Status: Chronic (6) Bronchitis Status: Acute - Assessment and Plan (Free Text) Plan: Cont meds Cont tx Cont neb tx follow up with casemgt re discharge plans cont caloric count
[2017-08-29] MEDS: Insulin Detemir 100 Units/ml Inj SC SCH (22:18)
[2017-08-29] MEDS: Alum-Mag Hydrox-Simethicone Susp (30 mL) PO PRN (23:40)
[2017-08-30] MEDS: Cefepime 2 GM in Sodium Chloride 0.9% 100 ML IVPB SCH ×3 (01:30→18:02)
[2017-08-30] MEDS: Albuterol-Ipratrop 3 mg / 0.5 (3 ml) UD INH SCH ×5 (05:29→19:24)
[2017-08-30] MEDS: Acetylcysteine 10% 4 ML IH SCH ×3 (07:09→19:24)
[2017-08-30] MEDS: Insulin Regular 100 units/ml SC SCH ×4 (07:37→22:23)
[2017-08-30 08:19] VITALS: RESP 20
[2017-08-30] MEDS: Enoxaparin 40 mg Syringe SC SCH (09:36)
[2017-08-30] MEDS: Ciprofloxacin/Dexamethasone OTIC SUSP AD SCH ×2 (09:38→18:03)
[2017-08-30] MEDS: Artificial Tears Opht Soln OU PRN (09:39)
--- NOTE | 2017-08-30 12:37 | CP.PCM.PN ---
Subjective - Date & Time of Evaluation Date of Evaluation: 08/30/17 Time of Evaluation: 12:35 - Subjective Subjective: Patient continues to have excessive mucus production. Has no fever Has no chest pain or SOB,. Objective - Vital Signs/Intake and Output Vital Signs (last 24 hours): Temp Pulse Resp BP Pulse Ox 97.4 F L 93 H 20 124/71 100 08/30/17 08:19 08/30/17 08:19 08/30/17 08:19 08/30/17 08:19 08/30/17 08:19 - Medications Medications: Current Medications Acetaminophen (Tylenol 325mg Tab) 650 mg PO Q4 PRN PRN Reason: Fever >100.4 F Last Admin: 08/16/17 14:45 Dose: 650 mg Acetylcysteine (Mucomyst 10% 4ml) 3 ml IH RTID [facility] Last Admin: 08/30/17 11:37 Dose: 3 ml Al Hydrox/Mg Hydrox/Simethicone (Maalox Plus 30 Ml) 30 ml PO Q4 PRN PRN Reason: Indigestion / Heartburn Last Admin: 08/29/17 23:40 Dose: 30 ml Albuterol/Ipratropium (Duoneb 3 Mg/0.5 Mg (3 Ml) Ud) 3 ml INH RQ4 [facility] Last Admin: 08/30/17 11:37 Dose: 3 ml Artificial Tears (Artificial Tears) 2 drop OU Q4 PRN PRN Reason: Dry eyes Last Admin: 08/30/17 09:39 Dose: 2 drop Benzocaine/Menthol (Cepacol Sore Throat) 1 nick PO Q2 PRN PRN Reason: Sore Throat Last Admin: 08/23/17 12:42 Dose: 1 nick Ciprofloxacin/Dexamethasone (Ciprodex Otic) 4 drop AD BID [facility] Last Admin: 08/30/17 09:38 Dose: 4 drop Enoxaparin Sodium (Lovenox) 40 mg SC DAILY [facility] PRN Reason: Protocol Last Admin: 08/30/17 09:36 Dose: 40 mg Fluconazole (Diflucan) 200 mg PO DAILY [facility] PRN Reason: Protocol Last Admin: 08/30/17 09:40 Dose: 200 mg Gabapentin (Neurontin) 600 mg PO BID [facility] Last Admin: 08/30/17 09:40 Dose: 600 mg Cefepime HCl 2 gm/ Sodium (Chloride) 100 mls @ 100 mls/hr IVPB Q8 [facility] PRN Reason: Protocol Last Admin: 08/30/17 09:35 Dose: 100 mls/hr Insulin Detemir (Levemir) 35 units SC HS [facility] Last Admin: 08/29/17 22:18 Dose: 35 units Insulin Human Regular (Humulin R) 0 units SC ACHS [facility] PRN Reason: Protocol Last Admin: 08/30/17 07:37 Dose: Not Given Metformin HCl (Glucophage) 850 mg PO BIDWM [facility] Last Admin: 08/30/17 09:40 Dose: 850 mg Prednisone (Prednisone Tab) 20 mg PO DAILY [facility] Last Admin: 08/30/17 09:40 Dose: 20 mg Sitagliptin Phosphate (Januvia) 100 mg PO DAILY [facility] Last Admin: 08/30/17 09:40 Dose: 100 mg - Labs Labs: 08/27/17 06:00 08/27/17 06:00 - Head Exam Head Exam: NORMAL INSPECTION - Eye Exam Eye Exam: Normal appearance - ENT Exam ENT Exam: Mucous Membranes Moist - Respiratory Exam Respiratory Exam: Decreased Breath Sounds, Rhonchi - Cardiovascular Exam Cardiovascular Exam: REGULAR RHYTHM - GI/Abdominal Exam GI & Abdominal Exam: Normal Bowel Sounds Assessment and Plan (1) Chest pain Status: Acute (2) Hypertension Status: Acute (3) Mastoiditis Status: Acute (4) Diabetes mellitus Status: Chronic (5) COPD (chronic obstructive pulmonary disease) Status: Chronic (6) Bronchitis Status: Acute - Assessment and Plan (Free Text) Plan: Cont meds Cont IV antibiotics con tx resp tx, follow up with ID.
--- NOTE | 2017-08-30 12:37 | CP.PCM.PN ---
Subjective - Date & Time of Evaluation Date of Evaluation: 08/30/17 Time of Evaluation: 10:00 - Subjective Subjective: no fever iv rx reordered still emaciated Objective - Vital Signs/Intake and Output Vital Signs (last 24 hours): Temp Pulse Resp BP Pulse Ox 97.4 F L 93 H 20 124/71 100 08/30/17 08:19 08/30/17 08:19 08/30/17 08:19 08/30/17 08:19 08/30/17 08:19 - Medications Medications: Current Medications Acetaminophen (Tylenol 325mg Tab) 650 mg PO Q4 PRN PRN Reason: Fever >100.4 F Last Admin: 08/16/17 14:45 Dose: 650 mg Acetylcysteine (Mucomyst 10% 4ml) 3 ml IH RTID [facility] Last Admin: 08/30/17 11:37 Dose: 3 ml Al Hydrox/Mg Hydrox/Simethicone (Maalox Plus 30 Ml) 30 ml PO Q4 PRN PRN Reason: Indigestion / Heartburn Last Admin: 08/29/17 23:40 Dose: 30 ml Albuterol/Ipratropium (Duoneb 3 Mg/0.5 Mg (3 Ml) Ud) 3 ml INH RQ4 [facility] Last Admin: 08/30/17 11:37 Dose: 3 ml Artificial Tears (Artificial Tears) 2 drop OU Q4 PRN PRN Reason: Dry eyes Last Admin: 08/30/17 09:39 Dose: 2 drop Benzocaine/Menthol (Cepacol Sore Throat) 1 nick PO Q2 PRN PRN Reason: Sore Throat Last Admin: 08/23/17 12:42 Dose: 1 nick Ciprofloxacin/Dexamethasone (Ciprodex Otic) 4 drop AD BID [facility] Last Admin: 08/30/17 09:38 Dose: 4 drop Enoxaparin Sodium (Lovenox) 40 mg SC DAILY [facility] PRN Reason: Protocol Last Admin: 08/30/17 09:36 Dose: 40 mg Fluconazole (Diflucan) 200 mg PO DAILY [facility] PRN Reason: Protocol Last Admin: 08/30/17 09:40 Dose: 200 mg Gabapentin (Neurontin) 600 mg PO BID [facility] Last Admin: 08/30/17 09:40 Dose: 600 mg Cefepime HCl 2 gm/ Sodium (Chloride) 100 mls @ 100 mls/hr IVPB Q8 [facility] PRN Reason: Protocol Last Admin: 08/30/17 09:35 Dose: 100 mls/hr Insulin Detemir (Levemir) 35 units SC HS [facility] Last Admin: 08/29/17 22:18 Dose: 35 units Insulin Human Regular (Humulin R) 0 units SC ACHS [facility] PRN Reason: Protocol Last Admin: 08/30/17 07:37 Dose: Not Given Metformin HCl (Glucophage) 850 mg PO BIDWM [facility] Last Admin: 08/30/17 09:40 Dose: 850 mg Prednisone (Prednisone Tab) 20 mg PO DAILY [facility] Last Admin: 08/30/17 09:40 Dose: 20 mg Sitagliptin Phosphate (Januvia) 100 mg PO DAILY [facility] Last Admin: 08/30/17 09:40 Dose: 100 mg - Labs Labs: 08/27/17 06:00 08/27/17 06:00 - Constitutional Appears: Chronically Ill - Head Exam Head Exam: NORMOCEPHALIC - Eye Exam Eye Exam: PERRL - ENT Exam ENT Exam: Mucous Membranes Dry - Neck Exam Neck Exam: absent: Lymphadenopathy - Respiratory Exam Respiratory Exam: Decreased Breath Sounds - Cardiovascular Exam Cardiovascular Exam: REGULAR RHYTHM, +S1, +S2 - GI/Abdominal Exam GI & Abdominal Exam: Soft. absent: Tenderness - Rectal Exam Rectal Exam: Deferred - Exam Exam: NORMAL INSPECTION - Extremities Exam Extremities Exam: absent: Pedal Edema - Back Exam Back Exam: absent: CVA tenderness (L), CVA tenderness (R) - Neurological Exam Neurological Exam: Alert, Awake. absent: CN II-XII Intact - Psychiatric Exam Psychiatric exam: Depressed Assessment and Plan (1) DVT prophylaxis Status: Acute (2) Mastoiditis Status: Acute (3) Mild intermittent asthma Status: Acute (4) Diabetes mellitus Status: Chronic (5) Mild persistent asthma Status: Chronic (6) Dysphagia Status: Acute (7) Cachexia Status: Acute (8) Cachexia Status: Acute - Assessment and Plan (Free Text) Assessment: iv rx reorderes cont 6 weeks rx follow up ENT eval
--- NOTE | 2017-08-30 17:30 | CP.PCM.PN ---
Subjective - Date & Time of Evaluation Date of Evaluation: 08/30/17 Time of Evaluation: 17:28 - Subjective Subjective: Patient states his food iingestion. Nurses notes record that he has been ingesting all or most of his meals using puree diet. Objective - Vital Signs/Intake and Output Vital Signs (last 24 hours): Temp Pulse Resp BP Pulse Ox 98.6 F 93 H 20 109/65 99 08/30/17 16:28 08/30/17 16:28 08/30/17 16:28 08/30/17 16:28 08/30/17 16:28 Intake and Output: 08/30/17 08/30/17 06:59 18:59 Intake Total 200 Balance 200 - Medications Medications: Current Medications Acetaminophen (Tylenol 325mg Tab) 650 mg PO Q4 PRN PRN Reason: Fever >100.4 F Last Admin: 08/16/17 14:45 Dose: 650 mg Acetylcysteine (Mucomyst 10% 4ml) 3 ml IH RTID [facility] Last Admin: 08/30/17 11:37 Dose: 3 ml Al Hydrox/Mg Hydrox/Simethicone (Maalox Plus 30 Ml) 30 ml PO Q4 PRN PRN Reason: Indigestion / Heartburn Last Admin: 08/29/17 23:40 Dose: 30 ml Albuterol/Ipratropium (Duoneb 3 Mg/0.5 Mg (3 Ml) Ud) 3 ml INH RQ4 [facility] Last Admin: 08/30/17 15:21 Dose: 3 ml Artificial Tears (Artificial Tears) 2 drop OU Q4 PRN PRN Reason: Dry eyes Last Admin: 08/30/17 09:39 Dose: 2 drop Benzocaine/Menthol (Cepacol Sore Throat) 1 nick PO Q2 PRN PRN Reason: Sore Throat Last Admin: 08/23/17 12:42 Dose: 1 nick Ciprofloxacin/Dexamethasone (Ciprodex Otic) 4 drop AD BID [facility] Last Admin: 08/30/17 09:38 Dose: 4 drop Enoxaparin Sodium (Lovenox) 40 mg SC DAILY [facility] PRN Reason: Protocol Last Admin: 08/30/17 09:36 Dose: 40 mg Fluconazole (Diflucan) 200 mg PO DAILY [facility] PRN Reason: Protocol Last Admin: 08/30/17 09:40 Dose: 200 mg Gabapentin (Neurontin) 600 mg PO BID [facility] Last Admin: 08/30/17 09:40 Dose: 600 mg Cefepime HCl 2 gm/ Sodium (Chloride) 100 mls @ 100 mls/hr IVPB Q8 [facility] PRN Reason: Protocol Last Admin: 08/30/17 09:35 Dose: 100 mls/hr Insulin Detemir (Levemir) 35 units SC HS [facility] Last Admin: 08/29/17 22:18 Dose: 35 units Insulin Human Regular (Humulin R) 0 units SC ACHS [facility] PRN Reason: Protocol Last Admin: 08/30/17 12:56 Dose: 3 u Metformin HCl (Glucophage) 850 mg PO BIDWM [facility] Last Admin: 08/30/17 09:40 Dose: 850 mg Prednisone (Prednisone Tab) 20 mg PO DAILY [facility] Last Admin: 08/30/17 09:40 Dose: 20 mg Sitagliptin Phosphate (Januvia) 100 mg PO DAILY [facility] Last Admin: 08/30/17 09:40 Dose: 100 mg - Labs Labs: 08/27/17 06:00 08/27/17 06:00 - Constitutional Appears: No Acute Distress - Head Exam Head Exam: ATRAUMATIC - Eye Exam Eye Exam: Normal appearance Pupil Exam: PERRL - ENT Exam ENT Exam: Mucous Membranes Moist - Neck Exam Neck Exam: Full ROM - Respiratory Exam Respiratory Exam: Clear to Ausculation Bilateral - Cardiovascular Exam Cardiovascular Exam: REGULAR RHYTHM, +S1, +S2 - GI/Abdominal Exam GI & Abdominal Exam: Soft. absent: Tenderness Assessment and Plan (1) Dysphagia Assessment & Plan: Appears to be tolerating diet better. Continue to follow clinically. Status: Chronic (2) Weight loss Status: Acute
[2017-08-30] MEDS ORDERED: Sodium Chloride 3% for Inhalation 4 ML VIAL.NEB IH PRN (20:51)
[2017-08-30] MEDS: Insulin Detemir 100 Units/ml Inj SC SCH (22:22)
[2017-08-30] MEDS: Alum-Mag Hydrox-Simethicone Susp (30 mL) PO PRN (22:26)
[2017-08-31] MEDS: Albuterol-Ipratrop 3 mg / 0.5 (3 ml) UD INH SCH ×6 (00:02→19:37)
[2017-08-31] MEDS: Cefepime 2 GM in Sodium Chloride 0.9% 100 ML IVPB SCH ×3 (00:47→19:37)
[2017-08-31] MEDS: Acetylcysteine 10% 4 ML IH SCH ×2 (07:50→19:37)
[2017-08-31] MEDS: Enoxaparin 40 mg Syringe SC SCH (09:35)
[2017-08-31] MEDS: Ciprofloxacin/Dexamethasone OTIC SUSP AD SCH ×2 (09:37→16:30)
[2017-08-31] MEDS: Insulin Regular 100 units/ml SC SCH ×5 (09:37→21:58)
[2017-08-31 10:41] LABS: BASO % 0.3 % (0.0-2.0); EOS # 0.1 K/uL (0.0-0.7); HEMOGLOBIN 10.4 g/dL (12.0-18.0); LYMPH # 1.9 K/uL (1.0-4.3); LYMPH % 20.4 % (20.0-40.0); MEAN CELL VOLUME 81.9 fl (80.0-94.0); MEAN CORPUSCULAR HEMOGLOBIN 25.5 pg (27.0-31.0); MEAN CORPUSCULAR HGB CONC 31.1 g/dL (33.0-37.0); MEAN PLATELET VOLUME 8.6 fl (7.2-11.7); MONO # 0.6 K/uL (0.0-0.8); MONO % 6.8 % (0.0-10.0); NEUT # 6.6 K/uL (1.8-7.0); NEUT % 71.5 % (50.0-75.0); NRBC % 0.1 % (0.0-0.0); RBC 4.1 Mil/uL (4.40-5.90); RED CELL DISTRIBUTION WIDTH 17.5 % (11.5-14.5); WHITE BLOOD COUNT 9.2 K/uL (4.8-10.8)
[2017-08-31 10:42] LABS: ALB/GLOB RATIO 1.2 (1.0-2.1); ALBUMIN 3.6 g/dL (3.5-5.0); ALT/SGPT 36 U/L (21-72); AST/SGOT 17 U/L (17-59); BLOOD UREA NITROGEN 20 mg/dl (9-20); CALCIUM 9.3 mg/dL (8.4-10.2); GFR AFRICAN-AMERICAN > 60; GFR NON-AFRICAN AMERICAN > 60
--- NOTE | 2017-08-31 10:42 | CP.PCM.PN ---
Subjective - Date & Time of Evaluation Date of Evaluation: 08/31/17 Time of Evaluation: 07:00 - Subjective Subjective: discussed on rounds iv rx to cont Objective - Vital Signs/Intake and Output Vital Signs (last 24 hours): Temp Pulse Resp BP Pulse Ox 97.6 F 81 20 116/70 100 08/31/17 09:00 08/31/17 09:00 08/31/17 09:00 08/31/17 09:00 08/31/17 09:00 - Medications Medications: Current Medications Acetaminophen (Tylenol 325mg Tab) 650 mg PO Q4 PRN PRN Reason: Fever >100.4 F Last Admin: 08/16/17 14:45 Dose: 650 mg Acetylcysteine (Mucomyst 10% 4ml) 3 ml IH RTID [facility] Last Admin: 08/31/17 07:50 Dose: 3 ml Al Hydrox/Mg Hydrox/Simethicone (Maalox Plus 30 Ml) 30 ml PO Q4 PRN PRN Reason: Indigestion / Heartburn Last Admin: 08/30/17 22:26 Dose: 30 ml Albuterol/Ipratropium (Duoneb 3 Mg/0.5 Mg (3 Ml) Ud) 3 ml INH RQ4 [facility] Last Admin: 08/31/17 07:50 Dose: 3 ml Artificial Tears (Artificial Tears) 2 drop OU Q4 PRN PRN Reason: Dry eyes Last Admin: 08/30/17 09:39 Dose: 2 drop Benzocaine/Menthol (Cepacol Sore Throat) 1 nick PO Q2 PRN PRN Reason: Sore Throat Last Admin: 08/23/17 12:42 Dose: 1 nick Ciprofloxacin/Dexamethasone (Ciprodex Otic) 4 drop AD BID [facility] Last Admin: 08/31/17 09:37 Dose: 4 drop Fluconazole (Diflucan) 200 mg PO DAILY [facility] PRN Reason: Protocol Last Admin: 08/31/17 09:36 Dose: 200 mg Gabapentin (Neurontin) 600 mg PO BID [facility] Last Admin: 08/31/17 09:35 Dose: 600 mg Cefepime HCl 2 gm/ Sodium (Chloride) 100 mls @ 100 mls/hr IVPB Q8 [facility] PRN Reason: Protocol Last Admin: 08/31/17 09:35 Dose: 100 mls/hr Insulin Detemir (Levemir) 35 units SC HS [facility] Last Admin: 08/30/17 22:22 Dose: 35 units Insulin Human Regular (Humulin R) 0 units SC ACHS [facility] PRN Reason: Protocol Last Admin: 08/31/17 09:37 Dose: Not Given Metformin HCl (Glucophage) 850 mg PO BIDWM [facility] Last Admin: 08/31/17 09:36 Dose: 850 mg Prednisone (Prednisone Tab) 20 mg PO DAILY [facility] Last Admin: 08/31/17 09:36 Dose: 20 mg Sitagliptin Phosphate (Januvia) 100 mg PO DAILY [facility] Last Admin: 08/31/17 09:36 Dose: 100 mg - Labs Labs: 08/27/17 06:00 08/27/17 06:00 - Constitutional Appears: Non-toxic, Cachectic, Chronically Ill - Head Exam Head Exam: NORMOCEPHALIC - Eye Exam Eye Exam: PERRL. absent: Scleral icterus - ENT Exam ENT Exam: Mucous Membranes Dry - Neck Exam Neck Exam: absent: Lymphadenopathy - Respiratory Exam Respiratory Exam: Decreased Breath Sounds - Cardiovascular Exam Cardiovascular Exam: REGULAR RHYTHM - GI/Abdominal Exam GI & Abdominal Exam: Distended, Soft - Rectal Exam Rectal Exam: Deferred - Exam Exam: NORMAL INSPECTION - Extremities Exam Extremities Exam: absent: Pedal Edema - Back Exam Back Exam: absent: CVA tenderness (L), CVA tenderness (R) - Neurological Exam Neurological Exam: Alert, Awake, Oriented x3. absent: CN II-XII Intact Neuro motor strength exam: Left Upper Extremity: 4, Right Upper Extremity: 4, Left Lower Extremity: 4, Right Lower Extremity: 4 - Psychiatric Exam Psychiatric exam: Depressed - Skin Skin Exam: Dry Assessment and Plan (1) DVT prophylaxis Status: Acute (2) Mastoiditis Status: Acute (3) Mild intermittent asthma Status: Acute (4) Diabetes mellitus Status: Chronic (5) Mild persistent asthma Status: Chronic (6) Dysphagia Status: Acute (7) Cachexia Status: Acute (8) Cachexia Status: Acute - Assessment and Plan (Free Text) Assessment: IV rx reordered
[2017-08-31] MEDS: Alum-Mag Hydrox-Simethicone Susp (30 mL) PO PRN ×2 (16:29→22:08)
[2017-08-31] MEDS: Insulin Detemir 100 Units/ml Inj SC SCH (22:01)
[2017-09-01] MEDS: Albuterol-Ipratrop 3 mg / 0.5 (3 ml) UD INH SCH ×5 (00:04→16:02)
[2017-09-01] MEDS: Cefepime 2 GM in Sodium Chloride 0.9% 100 ML IVPB SCH ×3 (01:00→17:39)
[2017-09-01] MEDS: Insulin Regular 100 units/ml SC SCH ×3 (06:49→17:43)
--- NOTE | 2017-09-01 07:29 | CP.PCM.PN ---
Subjective - Date & Time of Evaluation Date of Evaluation: 08/31/17 Time of Evaluation: 10:30 - Subjective Subjective: Patient remains stable Still with a lot of cough Noted whitish phlegm Has no fever Objective - Vital Signs/Intake and Output Vital Signs (last 24 hours): Temp Pulse Resp BP Pulse Ox 98.1 F 99 H 20 103/57 L 100 09/01/17 00:42 09/01/17 00:42 09/01/17 00:42 09/01/17 00:42 09/01/17 00:42 Intake and Output: 09/01/17 09/01/17 06:59 18:59 Intake Total 100 Balance 100 - Medications Medications: Current Medications Acetaminophen (Tylenol 325mg Tab) 650 mg PO Q4 PRN PRN Reason: Fever >100.4 F Last Admin: 08/16/17 14:45 Dose: 650 mg Acetylcysteine (Mucomyst 10% 4ml) 3 ml IH RTID [facility] Last Admin: 08/31/17 19:37 Dose: 3 ml Al Hydrox/Mg Hydrox/Simethicone (Maalox Plus 30 Ml) 30 ml PO Q4 PRN PRN Reason: Indigestion / Heartburn Last Admin: 08/31/17 22:08 Dose: 30 ml Albuterol/Ipratropium (Duoneb 3 Mg/0.5 Mg (3 Ml) Ud) 3 ml INH RQ4 JUANA Last Admin: 09/01/17 03:17 Dose: 3 ml Artificial Tears (Artificial Tears) 2 drop OU Q4 PRN PRN Reason: Dry eyes Last Admin: 08/30/17 09:39 Dose: 2 drop Benzocaine/Menthol (Cepacol Sore Throat) 1 nick PO Q2 PRN PRN Reason: Sore Throat Last Admin: 08/23/17 12:42 Dose: 1 nick Ciprofloxacin/Dexamethasone (Ciprodex Otic) 4 drop AD BID [facility] Last Admin: 08/31/17 16:30 Dose: 4 drop Fluconazole (Diflucan) 200 mg PO DAILY JUANA PRN Reason: Protocol Last Admin: 08/31/17 09:36 Dose: 200 mg Gabapentin (Neurontin) 600 mg PO BID [facility] Last Admin: 08/31/17 16:11 Dose: 600 mg Cefepime HCl 2 gm/ Sodium (Chloride) 100 mls @ 100 mls/hr IVPB Q8 JUANA PRN Reason: Protocol Last Admin: 09/01/17 01:00 Dose: 100 mls/hr Insulin Detemir (Levemir) 35 units SC HS [facility] Last Admin: 08/31/17 22:01 Dose: 35 units Insulin Human Regular (Humulin R) 0 units SC ACHS JUANA PRN Reason: Protocol Last Admin: 09/01/17 06:49 Dose: Not Given Metformin HCl (Glucophage) 850 mg PO BIDWM [facility] Last Admin: 08/31/17 16:11 Dose: 850 mg Prednisone (Prednisone Tab) 20 mg PO DAILY [facility] Last Admin: 08/31/17 09:36 Dose: 20 mg Sitagliptin Phosphate (Januvia) 100 mg PO DAILY [facility] Last Admin: 08/31/17 09:36 Dose: 100 mg - Labs Labs: 08/31/17 10:15 08/31/17 10:15 - Head Exam Head Exam: NORMAL INSPECTION - Eye Exam Eye Exam: Normal appearance - ENT Exam ENT Exam: Mucous Membranes Moist - Respiratory Exam Respiratory Exam: Rhonchi - Cardiovascular Exam Cardiovascular Exam: REGULAR RHYTHM - GI/Abdominal Exam GI & Abdominal Exam: Soft Assessment and Plan (1) Chest pain Status: Acute (2) Hypertension Status: Acute (3) Mastoiditis Status: Acute (4) Diabetes mellitus Status: Chronic (5) COPD (chronic obstructive pulmonary disease) Status: Chronic (6) Bronchitis Status: Acute (7) Facial nerve palsy, secondary Status: Acute (8) Facial palsy Status: Acute - Assessment and Plan (Free Text) Plan: Cont meds Cont tx Cont PT arrange for discharge tomorrow
[2017-09-01] MEDS: Acetylcysteine 10% 4 ML IH SCH ×2 (07:37→11:36)
[2017-09-01] MEDS: Ciprofloxacin/Dexamethasone OTIC SUSP AD SCH ×2 (09:17→17:46)
[2017-09-01] MEDS: Artificial Tears Opht Soln OU PRN (09:46)
--- NOTE | 2017-09-01 13:41 | CP.PCM.DIS ---
Provider - Provider Date of Admission: 08/08/17 23:27 Attending physician: Ellis Abreu MD Consults: ID GI Time Spent in preparation of Discharge (in minutes): 35 Diagnosis - Discharge Diagnosis (1) Bronchitis Status: Resolved (2) Dysphagia Status: Chronic (3) Facial palsy Status: Chronic (4) Mastoiditis Status: Acute Comment: C/W IV abx Hospital Course - Lab Results Lab Results: Micro Results 08/31/17 12:15 Sputum Gram Stain - Final 08/29/17 15:50 Sputum Gram Stain - Final 08/29/17 15:50 Sputum Sputum Culture - Final 08/16/17 15:15 Blood Blood Culture - Final NO GROWTH AFTER 5 DAYS 08/16/17 15:15 Blood Gram Stain - Final TEST NOT PERFORMED 08/16/17 14:45 Blood Blood Culture - Final NO GROWTH AFTER 5 DAYS 08/16/17 14:45 Blood Gram Stain - Final TEST NOT PERFORMED 08/17/17 14:00 Sputum Gram Stain - Final 08/17/17 14:00 Sputum Sputum Culture - Final Yeast Species 08/13/17 10:04 Ear - Right Gram Stain - Final 08/13/17 10:04 Ear - Right Wound Culture - Final No growth. 08/12/17 12:05 Blood Blood Culture - Final NO GROWTH AFTER 5 DAYS 08/12/17 12:05 Blood Gram Stain - Final TEST NOT PERFORMED 08/12/17 06:48 Urine,Random Urine Culture - Final No Growth (<1,000 CFU/ML) Most Recent Lab Values WBC 9.2 K/uL (4.8-10.8) 08/31/17 10:15 RBC 4.10 Mil/uL (4.40-5.90) L 08/31/17 10:15 Hgb 10.4 g/dL (12.0-18.0) L 08/31/17 10:15 Hct 33.6 % (35.0-51.0) L 08/31/17 10:15 MCV 81.9 fl (80.0-94.0) D 08/31/17 10:15 MCH 25.5 pg (27.0-31.0) L 08/31/17 10:15 MCHC 31.1 g/dL (33.0-37.0) L 08/31/17 10:15 RDW 17.5 % (11.5-14.5) H 08/31/17 10:15 Plt Count 246 K/uL (130-400) D 08/31/17 10:15 MPV 8.6 fl (7.2-11.7) 08/31/17 10:15 Neut % (Auto) 71.5 % (50.0-75.0) 08/31/17 10:15 Lymph % (Auto) 20.4 % (20.0-40.0) 08/31/17 10:15 [place] % (Auto) 6.8 % (0.0-10.0) 08/31/17 10:15 Eos % (Auto) 1.0 % (0.0-4.0) 08/31/17 10:15 Baso % (Auto) 0.3 % (0.0-2.0) 08/31/17 10:15 Neut # (Auto) 6.6 K/uL (1.8-7.0) 08/31/17 10:15 Lymph # (Auto) 1.9 K/uL (1.0-4.3) 08/31/17 10:15 [place] # (Auto) 0.6 K/uL (0.0-0.8) 08/31/17 10:15 Eos # (Auto) 0.1 K/uL (0.0-0.7) 08/31/17 10:15 Baso # (Auto) 0.0 K/uL (0.0-0.2) 08/31/17 10:15 ESR 58 mm/hr (0-20) H 08/13/17 05:00 Sodium 140 mmol/l (132-148) 08/31/17 10:15 Potassium 4.3 MMOL/L (3.6-5.0) 08/31/17 10:15 Chloride 94 mmol/L (98-107) L 08/31/17 10:15 Carbon Dioxide 31 mmol/L (22-30) H 08/31/17 10:15 Anion Gap 19 (10-20) 08/31/17 10:15 BUN 20 mg/dl (9-20) 08/31/17 10:15 Creatinine 0.7 mg/dl (0.8-1.5) L 08/31/17 10:15 Est GFR ( Amer) > 60 08/31/17 10:15 Est GFR (Non-Af Amer) > 60 08/31/17 10:15 POC Glucose (mg/dL) 210 mg/dL (65-110) H 09/01/17 11:01 Random Glucose 252 mg/dL (75-110) H 08/31/17 10:15 Hemoglobin A1c 9.1 % (4.2-6.5) H 08/14/17 18:00 Calcium 9.3 mg/dL (8.4-10.2) 08/31/17 10:15 Total Bilirubin 0.5 mg/dl (0.2-1.3) 08/31/17 10:15 AST 17 U/L (17-59) D 08/31/17 10:15 ALT 36 U/L (21-72) 08/31/17 10:15 Alkaline Phosphatase 69 U/L (38-126) 08/31/17 10:15 Troponin I < 0.0120 ng/mL (0.00-0.120) 08/09/17 15:30 C-React Prot High Sens > 15.00 mg/L (1.00-3.00) H 08/13/17 08:56 Total Protein 6.7 G/DL (6.3-8.2) 08/31/17 10:15 Albumin 3.6 g/dL (3.5-5.0) 08/31/17 10:15 Globulin 3.1 gm/dL (2.2-3.9) 08/31/17 10:15 Albumin/Globulin Ratio 1.2 (1.0-2.1) 08/31/17 10:15 Procalcitonin < 0.05 NG/ML (0.19-0.49) L 08/13/17 08:55 Urine Color Yellow (YELLOW) 08/13/17 02:13 Urine Clarity Clear (Clear) 08/13/17 02:13 Urine pH 7.0 (5.0-8.0) 08/13/17 02:13 Ur Specific [place] 1.011 (1.003-1.030) 08/13/17 02:13 Urine Protein 30 mg/dL (NEGATIVE) 08/13/17 02:13 Urine Glucose (UA) >=500 mg/dL (Normal) 08/13/17 02:13 Urine Ketones Negative mg/dL (NEGATIVE) 08/13/17 02:13 Urine Blood Negative (NEGATIVE) 08/13/17 02:13 Urine Nitrate Negative (NEGATIVE) 08/13/17 02:13 Urine Bilirubin Negative (NEGATIVE) 08/13/17 02:13 Urine Urobilinogen 0.2-1.0 mg/dL (0.2-1.0) 08/13/17 02:13 Ur Leukocyte Esterase Neg [place]/uL (Negative) 08/13/17 02:13 Urine RBC (Auto) 2 /hpf (0-3) 08/13/17 02:13 Urine Microscopic WBC 1 /hpf (0-5) 08/13/17 02:13 Vancomycin Trough 25.7 ug/mL (5.0-10.0) H 08/24/17 05:41 - Hospital Course Hospital Course: 66 y/o M with PMhx of CAD, OM, Facial palsy was admitted to hosp with c/o CP. He was diagnosed with Bronchitis/Pneumonitis and treated with IV Abx. Patient's was revaluate by ID for previously diagnosed Mastoiditis/OM and he received braod spec IV abx during his stay. Patient was found to have dysphagia likely due to previously diagnosed facial palsy. He was evaluated by GI and underwent swallow study, his diet was modified and patient was able to meet caloric needs during his last days on inpatient stay. Today after being cleared by specialist and being medically improved/stable he is decided to DC home to c/w IV abx as per ID recs and f/u as outpatient. Discharge Exam - Head Exam Head Exam: NORMAL INSPECTION - Eye Exam Eye Exam: PERRL. absent: Normal appearance Additional comments: Facial palsy unilateral - ENT Exam ENT Exam: Mucous Membranes Moist - Respiratory Exam Respiratory Exam: Clear to PA & Lateral, NORMAL BREATHING PATTERN, UNREMARKABLE - Cardiovascular Exam Cardiovascular Exam: REGULAR RHYTHM, +S1, +S2. absent: Gallop - GI/Abdominal Exam GI & Abdominal Exam: Normal Bowel Sounds, Soft, Unremarkable. absent: Tenderness - Extremities Exam Extremities exam: full ROM - Neurological Exam Neurological exam: Alert, Oriented x3 - Psychiatric Exam Psychiatric exam: Normal Affect, Normal Mood - Skin Skin Exam: Normal Color, Warm Discharge Plan - Discharge Medications Prescriptions: Cefepime IV 2 gm in NS [Maxipime 2gm] 2 gm IVPB Q8 #42 bag Ciprofloxacin/Dexamethasone [Ciprodex Otic] 4 drop AD BID #1 bottle Fluconazole [Diflucan] 200 mg PO DAILY #3 tab metFORMIN [glucOPHAGE] 850 mg PO BIDWM #30 tab Polyethylene Glycol/Polyvinyl [Artificial Tears] 2 drop OU Q4 PRN #1 bottle PRN Reason: Dry Eyes SITagliptin [Januvia] 100 mg PO DAILY #30 tab - Follow Up Plan Condition: STABLE Disposition: HOME/ ROUTINE Instructions: Chest Pain (DC), Mastoiditis (DC) Additional Instructions: pt. cleared for discharge to Home today by , cont Home IV Abx Maxipime 2gm q8 x 2 more weeks Referrals: Theo Blair MD [Staff Provider] - Benjamin Patton MD [Staff Provider] - Ellis Abreu MD [Staff Provider] - Alexey Paige MD [Staff Provider] -
[2017-09-01 15:53] VITALS: BP 126/69; PULSE 93; TEMP 99.1; O2SAT 99
== END 2017-09-01 19:15 | disposition home health service (06) | DRG 152 ==
LOC: H.ER 21:36 → H.ERHOLD 23:27 → OBSVTOIN 23:27 → H.TEL 08-09 01:10 → H.MEDSURG1 08-20 16:05
PROVIDERS: ADMIT Family Medicine; ATTEND Family Medicine
PROC: 3E0F73Z Introduction of Anti-inflammatory into Respiratory Tract, Via Natural or Artificial Opening (ICD-10-PCS; principal; 2017-08-09)
PROC: 3E0234Z Introduction of Serum, Toxoid and Vaccine into Muscle, Percutaneous Approach (ICD-10-PCS; 2017-08-09)
DX: H70.001 Acute mastoiditis without complications, right ear (principal); J18.9 Pneumonia, unspecified organism; J45.21 Mild intermittent asthma with (acute) exacerbation; R64 Cachexia; J20.9 Acute bronchitis, unspecified; E11.65 Type 2 diabetes mellitus with hyperglycemia; R13.10 Dysphagia, unspecified; H66.91 Otitis media, unspecified, right ear; R07.89 Other chest pain; I10 Essential (primary) hypertension; I25.10 Atherosclerotic heart disease of native coronary artery without angina pectoris; J34.2 Deviated nasal septum; H91.91 Unspecified hearing loss, right ear; G51.0 Bell's palsy; Z23 Encounter for immunization; Z87.39 Personal history of other diseases of the musculoskeletal system and connective tissue; Z95.1 Presence of aortocoronary bypass graft; Z87.891 Personal history of nicotine dependence